=== PATIENT | male | born 1965 | race African-American/Black ===

== ENCOUNTER 2017-08-21 10:43 | Emergency (ER) | payer MEDICAID ==
[2017-08-21] MEDS ORDERED: IBUPROFEN 600 MG TABLET ONE (11:42)
== END 2017-08-21 13:06 | disposition home or self-care (01) ==
LOC: EDH 10:43
DX: M25.562 Pain in left knee (principal); Z98.890 Other specified postprocedural states
CPT/HCPCS: 73562

== ENCOUNTER 2017-12-12 11:39 | Emergency (ER) | payer MEDICAID ==
[2017-12-12 12:05] LABS: BASOPHILS % (AUTO) 0.5 % (0.0-5.0); EOSINOPHILS % (AUTO) 2.2 % (0.0-8.0); HEMATOCRIT 39.3 % (42-54); LYMPHOCYTES % (AUTO) 38.8 % (21.0-51.0); MEAN CORPUSCULAR HEMOGLOBIN 32.1 pg (27.0-33.0); MEAN CORPUSCULAR HGB CONC 34.1 g/dL (32.0-36.0); MEAN CORPUSCULAR VOLUME 94.2 fL (79-99); MONOCYTES % (AUTO) 10.8 % (3.0-13.0); NEUTROPHILS % (AUTO) 47.7 % (40.0-77.0); PLATELET COUNT (AUTO) 209 K/uL (130-400); RED BLOOD CELL COUNT(AUTO) 4.17 MIL/uL (4.50-6.20); RED CELL DISTRIBUTION WIDTH 13.5 % (11.0-15.5); WHITE BLOOD COUNT (AUTO) 6.4 K/uL (4.8-10.8)
[2017-12-12 12:08] LABS: APPEARANCE,URINE Clear (CLEAR); BILIRUBIN,URINE Negative (NEGATIVE); COLOR,URINE Yellow (YELLOW); GLUCOSE, URINE (UA) Negative (NEGATIVE); KETONES,URINE Negative (NEGATIVE); LEUKOCYTE ESTERASE ,URINE Negative (NEGATIVE); NITRATE,URINE Negative (NEGATIVE); OCCULT BLOOD,URINE Negative (NEGATIVE); PROTEIN,URINE Negative (NEGATIVE)
[2017-12-12 12:11] LABS: CREATININE 1.2 mg/dL (0.5-1.5); POTASSIUM 3.9 mmol/L (3.5-5.1)
== END 2017-12-12 13:18 | disposition home or self-care (01) ==
LOC: EDH 11:39
DX: S20.211A Contusion of right front wall of thorax, initial encounter (principal); S40.021A Contusion of right upper arm, initial encounter; Z98.890 Other specified postprocedural states; Z88.6 Allergy status to analgesic agent; V76 Bus occupant injured in collision with other nonmotor vehicle; Y93.89 Activity, other specified; Y92.488 Other paved roadways as the place of occurrence of the external cause; Y99.8 Other external cause status
CPT/HCPCS: 36415; 71250; 73060; 73090; 80048; 81003; 85025

== ENCOUNTER → 2018-03-14 | Outpatient (CLI) | payer MEDICAID | END | disposition home or self-care (01) | LOC: SHCH 09:32 | PROVIDERS: ATTEND Internal Medicine Cardiovascular Disease | DX: R94.31 Abnormal electrocardiogram [ECG] [EKG] (principal) | CPT/HCPCS: 93306 ==

== ENCOUNTER → 2018-03-18 | Outpatient (CLI) | payer MEDICAID ==
[~2018-03-18] MED LIST: REGADENOSON 0.4 MG/5 ML PF SYG IVP SCH
== END | disposition home or self-care (01) ==
LOC: SHCH 08:30
PROVIDERS: ATTEND Internal Medicine Cardiovascular Disease
DX: R06.00 Dyspnea, unspecified (principal)
CPT/HCPCS: 78452; 93017; 96374; A9500 ×2; J2785

== ENCOUNTER → 2020-11-15 | Outpatient (CLI) | payer MEDICAID | END | disposition home or self-care (01) | LOC: RAH 08:47 | PROVIDERS: ATTEND Internal Medicine Cardiovascular Disease | DX: R27.0 Ataxia, unspecified (principal); R20.2 Paresthesia of skin; M79.609 Pain in unspecified limb | CPT/HCPCS: 70450 ==

== ENCOUNTER → 2021-01-08 | Outpatient (CLI) | payer MEDICAID | END | disposition home or self-care (01) | LOC: SLP 20:19 | PROVIDERS: ATTEND Internal Medicine Cardiovascular Disease | DX: G47.33 Obstructive sleep apnea (adult) (pediatric) (principal) | CPT/HCPCS: 95810; 95811 ==

== ENCOUNTER → 2021-01-30 | Outpatient (CLI) | payer MEDICAID | END | disposition home or self-care (01) | LOC: SLP 19:54 | PROVIDERS: ATTEND Internal Medicine Cardiovascular Disease | DX: G47.33 Obstructive sleep apnea (adult) (pediatric) (principal); I10 Essential (primary) hypertension; R53.83 Other fatigue; F41.8 Other specified anxiety disorders; E66.9 Obesity, unspecified; R35.0 Frequency of micturition; M25.50 Pain in unspecified joint | CPT/HCPCS: 95811 ==

== ENCOUNTER 2022-12-21 19:30 | Emergency (ER) | payer MEDICAID ==
[2022-12-21 21:06] LABS: BASOPHILS % (AUTO) 0.4 % (0.0-5.0); EOSINOPHILS % (AUTO) 0.2 % (0.0-8.0); HEMATOCRIT 41.3 % (42-54); LYMPHOCYTES % (AUTO) 13.8 % (21.0-51.0); MEAN CORPUSCULAR HEMOGLOBIN 29.2 pg (27.0-33.0); MEAN CORPUSCULAR HGB CONC 32.7 g/dL (32.0-36.0); MEAN CORPUSCULAR VOLUME 89.4 fL (79-99); NEUTROPHILS % (AUTO) 78.1 % (40.0-77.0); PLATELET COUNT (AUTO) 220 K/uL (130-400); RED BLOOD CELL COUNT(AUTO) 4.62 MIL/uL (4.50-6.20); RED CELL DISTRIBUTION WIDTH 14.5 % (11.0-15.5); WHITE BLOOD COUNT (AUTO) 9.1 K/uL (4.8-10.8)
[2022-12-21 21:21] LABS: CREATININE 1.2 mg/dL (0.5-1.5); POTASSIUM 4.4 mmol/L (3.5-5.1)
[2022-12-21 21:28] LABS: ALBUMIN 3.8 g/dL (3.5-5.0)
[2022-12-21 21:51] VITALS: BP 163/94
[2022-12-21] MEDS ORDERED: AZIT250T9 PO (22:14)
[2022-12-21] MEDS ORDERED: AMLODIPINE 5 MG TAB PO ONE (22:30)
== END 2022-12-21 22:44 | disposition home or self-care (01) ==
LOC: EDH 19:30
DX: J40 Bronchitis, not specified as acute or chronic (principal); R55 Syncope and collapse; Z95.810 Presence of automatic (implantable) cardiac defibrillator
CPT/HCPCS: 36415; 71045; 80053; 84484; 85025; 93005

== ENCOUNTER → 2024-03-13 | Outpatient (CLI) | payer MEDICAID ==
[~2024-03-13] MED LIST changes: +AZIT250T9 PO; -REGADENOSON 0.4 MG/5 ML PF SYG IVP SCH
== END | disposition home or self-care (01) ==
LOC: SHCH 09:33
PROVIDERS: ATTEND Internal Medicine Cardiovascular Disease
DX: R60.9 Edema, unspecified (principal)
CPT/HCPCS: 93970

== ENCOUNTER → 2024-04-29 | Outpatient (CLI) | payer MEDICAID ==
[~2024-04-29] MED LIST changes: +AEC81 PO; +AMIO200T44 PO; +AMIO200T68 PO; +AMLO-258 PO; +ATOR40TA69 PO; -AZIT250T9 PO; +LISI40TA9 PO
[2024-04-29 12:21] LABS: CREATININE 1.3 mg/dL (0.5-1.3); POTASSIUM 4.6 mmol/L (3.5-5.1)
== END | disposition home or self-care (01) ==
LOC: LAB 10:33
PROVIDERS: ATTEND Internal Medicine Cardiovascular Disease
DX: I10 Essential (primary) hypertension (principal); Z95.810 Presence of automatic (implantable) cardiac defibrillator
CPT/HCPCS: 36415; 80048; 83735

== ENCOUNTER → 2024-05-05 | Outpatient (CLI) | payer MEDICAID ==
[2024-05-05 12:19] LABS: CREATININE 1.4 mg/dL (0.5-1.3); MAGNESIUM 1.7 mg/dL (1.80-2.40)
== END | disposition home or self-care (01) ==
LOC: LAB 08:05
PROVIDERS: ATTEND Internal Medicine Cardiovascular Disease
DX: I10 Essential (primary) hypertension (principal); Z95.810 Presence of automatic (implantable) cardiac defibrillator
CPT/HCPCS: 36415; 80048; 83735

== ENCOUNTER → 2024-07-10 | Outpatient (CLI) | payer MEDICAID ==
[2024-07-10 12:08] LABS: CREATININE 2.1 mg/dL (0.5-1.3); POTASSIUM 4.3 mmol/L (3.5-5.1)
== END | disposition home or self-care (01) ==
LOC: LAB 10:13
PROVIDERS: ATTEND Internal Medicine Cardiovascular Disease
DX: I10 Essential (primary) hypertension (principal)
CPT/HCPCS: 36415; 80048

== ENCOUNTER → 2024-08-06 | Outpatient (CLI) | payer MEDICAID ==
[2024-08-06 13:21] LABS: CREATININE 1.8 mg/dL (0.5-1.3); MAGNESIUM 1.8 mg/dL (1.80-2.40); POTASSIUM 4.4 mmol/L (3.5-5.1)
== END | disposition home or self-care (01) ==
LOC: LAB 08:21
PROVIDERS: ATTEND Internal Medicine Cardiovascular Disease
DX: I10 Essential (primary) hypertension (principal)
CPT/HCPCS: 36415; 80048; 83735

== ENCOUNTER → 2024-08-14 | Outpatient (CLI) | payer MEDICAID ==
[2024-08-14 12:28] LABS: CREATININE 1.6 mg/dL (0.5-1.3)
== END | disposition home or self-care (01) ==
LOC: LAB 09:04
PROVIDERS: ATTEND Internal Medicine Cardiovascular Disease
DX: I10 Essential (primary) hypertension (principal); Z45.02 Encounter for adjustment and management of automatic implantable cardiac defibrillator
CPT/HCPCS: 36415; 80048

== ENCOUNTER 2024-09-04 16:41 | Emergency (ER) | payer MEDICAID ==
[~2024-09-04] VITALS: Ht 182.9 cm; Wt 145.1 kg
--- NOTE | 2024-09-04 17:23 | EKG ---
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
[2024-09-04 17:26] LABS: BASOPHILS # (AUTO) 0.06 K/uL (0.00-0.20); BASOPHILS % (AUTO) 0.8 % (0.0-5.0); EOSINOPHILS # (AUTO) 0.12 K/uL (0.00-0.70); EOSINOPHILS % (AUTO) 1.7 % (0.0-8.0); HEMATOCRIT 42.7 % (42-54); LYMPHOCYTES # (AUTO) 2.1 K/uL (1.0-4.8); LYMPHOCYTES % (AUTO) 29.9 % (21.0-51.0); MEAN CORPUSCULAR HEMOGLOBIN 31.7 pg (27.0-33.0); MEAN CORPUSCULAR HGB CONC 33.3 g/dL (32.0-36.0); MEAN CORPUSCULAR VOLUME 95.3 fL (79-99); MONOCYTES # (AUTO) 0.9 K/uL (0.1-1.0); MONOCYTES % (AUTO) 12.3 % (3.0-13.0); NEUTROPHILS # (AUTO) 3.9 K/uL (1.8-7.7); NEUTROPHILS % (AUTO) 55.3 % (40.0-77.0); PLATELET COUNT (AUTO) 273 K/uL (130-400); RED BLOOD CELL COUNT(AUTO) 4.48 MIL/uL (4.50-6.20); RED CELL DISTRIBUTION WIDTH 14.2 % (11.0-15.5); WHITE BLOOD COUNT (AUTO) 7.1 K/uL (4.8-10.8)
--- NOTE | 2024-09-04 17:27 | ERN ---
General Chief Complaint: Hypertension Stated Complaint: HYPERTENSION,MULTIPLE COMPLAINTS Time Seen by MD: 16:45 Source: patient History of Present Illness Initial Comments PATIENT IS A 59-YEAR-OLD GENTLEMAN COMING IN TO EVALUATE HIS BLOOD PRESSURE. HE STATES THAT HE HAS A HISTORY OF HYPERTENSION BUT HAS FREQUENTLY PRESENTED WITH ABNORMAL BLOOD PRESSURE. HE WAS CURRENTLY TAKING MEDICATION FOR HIS BLOOD PRESSURE BUT HE WAS TOLD THAT ANOTHER ER THAT IT WAS NOT OPTIMAL. Allergies: Coded Allergies: ibuprofen (Unverified Allergy, Mild, BLOATING, 04/16/24) INDIGESTION/ACID REFLUX Home Meds Reported Medications Amiodarone HCl (Amiodarone HCl) 200 Mg Tablet, 200 MG PO BID, TAB 09/04/24 Atorvastatin Calcium (LIPITOR) 40 Mg Tablet, 40 MG PO DAILY, TAB 09/04/24 Buspirone HCl (Buspirone HCl) 10 Mg Tablet, 10 MG PO BID, TAB 09/04/24 Eplerenone (Eplerenone) 25 Mg Tablet, 25 MG PO DAILY, TAB 09/04/24 Aspirin (ASPIRIN 81MG CHEW TAB) 81 Mg Tab.chew, 81 MG PO DAILY, TAB.CHEW 09/04/24 Furosemide (Furosemide) 20 Mg Tablet, 20 MG PO DAILY, TAB 09/04/24 Empagliflozin (Jardiance) 10 Mg Tablet, 10 MG PO DAILY, TAB 09/04/24 Amlodipine Besylate (Amlodipine Besylate) 10 Mg Tablet, 10 MG PO DAILY for 30 Days, #30 TAB 0 Refills 09/04/24 Clopidogrel Bisulfate (Clopidogrel) 75 Mg Tablet, 75 MG PO DAILY, TAB 09/04/24 Metoprolol Succinate (Metoprolol Succinate) 50 Mg Tab.er.24h, 50 MG PO DAILY, TAB 09/04/24 Discontinued Reported Medications Amlodipine Besylate (Amlodipine Besylate) 10 Mg Tablet, 10 MG PO DAILY for 30 Days, #30 TAB 0 Refills 04/16/24 Aspirin (ASPIRIN 81 MG ECTAB) 81 Mg Ectab, 81 MG PO DAILY, TAB.EC 04/16/24 Atorvastatin Calcium (LIPITOR) 40 Mg Tablet, 40 MG PO DAILY, TAB 04/16/24 Lisinopril (Lisinopril) 40 Mg Tablet, 40 MG PO DAILY, TAB 04/16/24 Discontinued Scripts Amiodarone HCl (Pacerone) 200 Mg Tablet, 400 MG PO BID, #10 TAB 0 Refills Prov:JAVIER TURCIOS MD 04/18/24 Amiodarone HCl (Amiodarone HCl) 200 Mg Tablet, 200 MG PO BID, #60 TAB Prov:JAVIER TURCIOS MD 04/18/24 Past Medical History Past Medical History: CAD, CVA, Diabetes-Type II, High Cholesterol, Heart Disease, Hypertension Past Surgical History: Other Surgical History Other: STENT PLACEMENT Social History Social History: Lives with family ROS Dictation CONSTITUTIONAL: NO CHILLS, NO FEVER, NO WEAKNESS, NO DIAPHORESIS, NO MALAISE. HEAD/FACE: NO SIGNS OF TRAUMA. EENT: NO EYE PAIN, NO BLURRED VISION, NO TEARING, NO DOUBLE VISION, NO EAR PAIN, NO EAR DISCHARGE, NO NOSE PAIN, NO NASAL CONGESTION, NO THROAT PAIN, NO THROAT SWELLING, NO MOUTH PAIN. RESPIRATORY: NO COUGH, NO ORTHOPNEA, NO SOB, NO STRIDOR, NO WHEEZING. CARDIOVASCULAR: NO CHEST PAIN, NO EDEMA, NO PALPITATIONS, NO SYNCOPE. GASTROINTESTINAL/ABDOMINAL: NO ABDOMINAL PAIN, NO CONSTIPATION, NO DIARRHEA, NO NAUSEA, NO VOMITING. GENITOURINARY: NO ABNORMAL DISCHARGE, NO DYSURIA, NO FREQUENT URINATION, NO HEMATURIA. NO COMPLAINTS OF PAIN IN THE GENITALS. MUSCULOSKELETAL: NO BACK PAIN, NO GOUT, NO JOINT PAIN, NO JOINT SWELLING, NO MUSCLE PAIN, NO MUSCLE STIFFNESS, NO NECK PAIN. INTEGUMENTARY: NO CHANGE IN COLOR, NO CHANGE IN HAIR/NAILS, NO DRYNESS, NO LESION, NO LUMPS, NO RASH. NEUROLOGICAL/PSYCH: NO ANXIETY, NOT DEPRESSED, NO EMOTIONAL PROBLEM, NO HEADACHE, NO NUMBNESS, NO PRE-EXISTING DEFICIT, NO HISTORY OF SEIZURES, NO TREMORS, NO WEAKNESS. HEMATOLOGIC/LYMPHATIC: NOT ANEMIC, NO HISTORY OF BLOOD CLOTS, NO APPARENT BLEEDING, NO BRUISING, GLANDS NOT SWOLLEN. ALL SYSTEMS NEGATIVE, EXCEPT NOTED. Physical Exam Physical Exam Dictation VITAL SIGNS: REVIEWED. GENERAL APPEARANCE: ALERT, ORIENTED X3, NO ACUTE DISTRESS, OBESE. HEAD AND FACE: NON-TRAUMATIC. EYES: PERRL, PINK CONJUNCTIVAS, EYELID NO TRAUMA, ANTERIOR CHAMBER CLEAR. EARS: PINNAS INTACT AND NO SIGNS OF TRAUMA OR ERYTHEMA. EAR CANALS CLEAR AND NO DISCHARGE. TMS NO ERYTHEMA. NOSE: NO DISCHARGE, NO BLEEDING. OROPHARYNX: MOUTH NORMAL, TEETH NO CARIES, TONGUE PINK. PHARYNX CLEAR, NO E RYTHEMA. TONSILS NO EXUDATES, NO ABSCESSES NOTED. MUCOUS MEMBRANE MOIST. NECK: SUPPLE, NON-TENDER, NO THYROMEGALY, NO MASSES, NO JVD, NO BRUITS. BREAST: DEFERRED. CHEST: NO TENDERNESS, NO CREPITUS, NO PARADOXICAL MOVEMENT, NO RETRACTIONS. LUNGS: CLEAR, WELL-VENTILATED, SYMMETRIC, NO RALES, NO WHEEZING, NO RHONCHI, NO STRIDOR, GOOD BREATH SOUNDS BILATERALLY. HEART: REGULAR RATE, REGULAR RHYTHM, NO MURMUR, NO GALLOPS. VASCULAR: NO PERIPHERAL EDEMA. ABDOMEN: SOFT, POSITIVE BOWEL SOUNDS, NONDISTENDED, NO GUARDING, NONTENDER, NO REBOUND, NO MASSES NO HEPATOMEGALY, NO SPLENOMEGALY, NO COLEMAN'S SIGN, NO HERNIAS. RECTAL: DEFERRED. GENITAL: DEFERRED. NEUROLOGICAL: NORMAL SPEECH, GROSS MOTOR FUNCTION INTACT, GROSS SENSORY FUNCTION INTACT. MUSCULOSKELETAL: NECK NONTENDER, FULL RANGE OF MOTION, BACK NONTENDER, FULL RANGE OF MOTION. EXTREMITIES: NONTENDER, FULL RANGE OF MOTION. SKIN: COLOR PINK, DRY, NO TURGOR, NO RASH, NO LACERATIONS, NO ABRASIONS, NO CONTUSIONS. LYMPHATICS: DEFERRED. Results Laboratory and Microbiology Lab and Micro Result Laboratory Tests Test 09/04/24 17:11 09/04/24 18:40 White Blood Count 7.1 K/uL (4.8-10.8) Red Blood Count 4.48 MIL/uL (4.50-6.20) L Hemoglobin 14.2 g/dL (14.0-18.0) Hematocrit 42.7 % (42-54) Mean Corpuscular Volume 95.3 fL (79-99) Mean Corpuscular Hemoglobin 31.7 pg (27.0-33.0) Mean Corpuscular Hemoglobin Concent 33.3 g/dL (32.0-36.0) Red Cell Distribution Width 14.2 % (11.0-15.5) Platelet Count 273 K/uL (130-400) Mean Platelet Volume 9.6 fL (7.5-10.5) Immature Granulocyte % (Auto) 0.0 % (0-1) Neutrophils (%) (Auto) 55.3 % (40.0-77.0) Lymphocytes (%) (Auto) 29.9 % (21.0-51.0) Monocytes (%) (Auto) 12.3 % (3.0-13.0) Eosinophils (%) (Auto) 1.7 % (0.0-8.0) Basophils (%) (Auto) 0.8 % (0.0-5.0) Neutrophils # (Auto) 3.9 K/uL (1.8-7.7) Lymphocytes # (Auto) 2.1 K/uL (1.0-4.8) Monocytes # (Auto) 0.9 K/uL (0.1-1.0) Eosinophils # (Auto) 0.12 K/uL (0.00-0.70) Basophils # (Auto) 0.06 K/uL (0.00-0.20) Absolute Immature Granulocyte (auto 0.00 K/uL (0-1) Nucleated Red Blood Cells 0.0 % (0.0-0.19) Prothrombin Time 10.9 SEC (9.6-11.6) Prothromb Time International Ratio 1.03 (0.85-1.15) Activated Partial Thromboplast Time 24.0 SEC (26.3-35.5) L Sodium Level 139 mmol/L (136-145) Potassium Level 4.1 mmol/L (3.5-5.1) Chloride Level 102 mmol/L (101-111) Carbon Dioxide Level 29 mmol/L (21-32) Blood Urea Nitrogen 28 mg/dL (7-18) H Creatinine 1.7 mg/dL (0.5-1.3) H Glomerular Filtration Rate Calc 45 mL/min (>90) Random Glucose 100 mg/dL (70-105) Total Calcium 9.1 mg/dL (8.5-10.1) Magnesium Level 2.00 mg/dL (1.80-2.40) Total Creatine Kinase 335 U/L (21-232) #H Troponin I High Sensitivity 18.9 ng/L (4-75) B-Type Natriuretic Peptide 32 pg/mL (0-100) Urine Color LIGHT-YELLOW (YELLOW) Urine Appearance CLEAR (CLEAR) Urine pH 5.5 (5.0-8.0) Urine Specific [place] 1.031 (1.001-1.031) Urine Protein 20 mg/dL (NEGATIVE) H Urine Glucose (UA) >=1000 mg/dL (NEGATIVE) H Urine Ketones NEGATIVE mg/dL (NEGATIVE) Urine Occult Blood +- (TRACE) (NEGATIVE) H Urine Nitrate NEGATIVE (NEGATIVE) Urine Bilirubin NEGATIVE mg/dL (NEGATIVE) Urine Urobilinogen 2.0 mg/dL (0.2-1.0) H Urine Leukocyte Esterase NEGATIVE Felicitas/uL Urine RBC 0-1 /HPF (0-1) Urine WBC 0-1 /HPF (0-1) Urine Bacteria None /HPF (None Seen) Labs Reviewed?: Yes EKG/XRAY/US/CT/MRI EKG Comment 09/04/2024 TIME 5:19 P.M. VENTRICULAR RATE [address] WAVE ELEVATION OR DEPRESSION MDM MDM: DIFFERENTIAL DIAGNOSIS: RATIONALE: TESTS CONSIDERED AND ORDERED SECONDARY TO SHARED DECISION MAKING INCLUDE: PREVIOUS OUTSIDE RECORDS REVIEWED: OLD ER VISITS. RISK OF COMPLICATION AND/OR MORBIDITY OR MORTALITY OF PATIENT MANAGEMENT: NONE MEDICATIONS-PER MEDICATION RECONCILIATION NEED FOR HOSPITALIZATION: PATIENT DOES NOT MEET CRITERIA FOR HOSPITALIZATION. NEED FOR EMERGENCY MAJOR/MINOR SURGERY: NO THERE ARE NO SOCIAL CONCERNS WITH THIS PATIENT. PRESCRIPTION DRUG MANAGEMENT PRESCRIPTIONS WILL INCLUDE SYMPTOMATIC CARE PATIENT'S PRIOR EXTERNAL MEDICAL RECORDS FROM OTHER ER VISITS WERE REVIEWED BY ME INDICATED. PRIOR TESTING AND RESULTS FROM PREVIOUS VISITS WERE REVIEWED. PRIOR TESTS WERE TAKEN INTO ACCOUNT WITH MEDICAL DECISION MAKING AND RESOURCE UTILIZATION, INDEPENDENT HISTORIAN/HISTORIANS WERE USED TO OBTAIN COMPLETE MEDICAL HISTORY. I INDEPENDENTLY INTERPRETED THE TEST THAT WERE PERFORMED, RESULTS WERE REVIEWED BY ME AND CONSIDERED FINDINGS ON RADIOLOGY IF ORDERED. MEDICAL MANAGEMENT AND EXAMINATION INTERPRETATION DISCUSSIONS WERE HAD BY ME WITH OTHER QUALIFIED HEALTHCARE PROFESSIONALS INDICATED FOR THE PATIENT'S CARE. ED Course Orders Procedure Category Date Status Time Cbc With Differential LAB 09/04/24 Complete 16:57 Prothrombin Time With LAB 09/04/24 Complete INR 16:57 B-Type Natriuretic LAB 09/04/24 Complete Peptide 16:57 Chest 1vw RAD 09/04/24 Resulted 16:57 12 Lead Ekg Tracing- EKG 09/04/24 Complete Technical 16:57 Magnesium LAB 09/04/24 Complete 16:57 Urinalysis Profile LAB 09/04/24 Complete 16:57 Partial LAB 09/04/24 Complete Thromboplastin Time 16:57 Basic Metabolic Panel LAB 09/04/24 Complete 16:57 Cardiac Panel LAB 09/04/24 Complete 16:57 Vital Signs Date Time Temp Pulse Resp B/P (MAP) Pulse Ox O2 Delivery O2 Flow Rate FiO2 09/04/24 19:08 61 16 161/85 98 Room Air* 0 21 09/04/24 17:18 99.0 64 17 151/79 97 Room Air* 0 09/04/24 16:47 98.8 67 20 176/101 96 Room Air 0 DX & DISP Disposition: Discharge Departure Impression: Primary Impression: HTN (hypertension) Condition: Stable Referrals: JANETT ZENDEJAS MD (PCP) CHLOE PROCTOR MD Sep 04, 2024 17:27 CHRISTIE SANCHEZ MD Sep 04, 2024 20:28
[2024-09-04 17:32] LABS: CREATININE 1.7 mg/dL (0.5-1.3); POTASSIUM 4.1 mmol/L (3.5-5.1)
[2024-09-04 17:34] LABS: INR 1.03 (0.85-1.15); PROTHROMBIN TIME 10.9 SEC (9.6-11.6)
[2024-09-04 17:47] LABS: B-TYPE NATRIURETIC PEPTIDE 32 pg/mL (0-100)
--- NOTE | 2024-09-04 18:01 | HMCIMG ---
PORTABLE CHEST RADIOGRAPH INDICATION: HTN COMPARISON: 04/15/2024 FINDINGS: Image is somewhat underexposed, but the radiologic examination is still believed to be of reasonable diagnostic quality. Left sided single chamber pacer and continuous lead remain in customary position. Heart size is normal. The pulmonary vascularity and vee appear normal. No abnormal pulmonary parenchymal opacity or consolidation identified. No significant pleural effusion noted. No pneumothorax detected. IMPRESSION: No radiographic evidence for any acute cardiopulmonary process.
[2024-09-04 18:58] LABS: APPEARANCE,URINE CLEAR (CLEAR); BILIRUBIN,URINE NEGATIVE (NEGATIVE); COLOR,URINE LIGHT-YELLOW (YELLOW); GLUCOSE, URINE (UA) >=1000 mg/dL (NEGATIVE); KETONES,URINE NEGATIVE (NEGATIVE); LEUKOCYTE ESTERASE ,URINE NEGATIVE Leu/uL (NEGATIVE); NITRATE,URINE NEGATIVE (NEGATIVE); PH,URINE 5.5 (5.0-8.0); PROTEIN,URINE 20 mg/dL (NEGATIVE)
[2024-09-04 19:00] LABS: ADD UA MICROSCOPIC YES
[2024-09-04 19:01] LABS: MUCUS,URINE RARE LPF (None Seen); RBC,URINE 0-1 /HPF (0-1); WBC,URINE 0-1 /HPF (0-1)
[2024-09-04] MEDS ORDERED: METO-391 PO (19:17)
[2024-09-04] MEDS ORDERED: BUSP10TA3 PO (19:17)
[2024-09-04] MEDS ORDERED: ASPI-1005 PO (19:17)
[2024-09-04] MEDS ORDERED: AMIO200T68 PO (19:17)
[2024-09-04] MEDS ORDERED: EMPA10TA PO (19:17)
[2024-09-04] MEDS ORDERED: CLOP75TA32 PO (19:17)
[2024-09-04] MEDS ORDERED: EPLE25TA24 PO (19:17)
[2024-09-04] MEDS ORDERED: FURO20TA4 PO (19:17)
[2024-09-04 20:45] VITALS: BP 150/83; PULSE 60; RESP 16; TEMP 98.1; O2SAT 97
== END 2024-09-04 21:18 | disposition home or self-care (01) ==
LOC: EDH 16:41
DX: I11.9 Hypertensive heart disease without heart failure (principal); I25.10 Atherosclerotic heart disease of native coronary artery without angina pectoris; E11.9 Type 2 diabetes mellitus without complications; E78.00 Pure hypercholesterolemia, unspecified; Z79.01 Long term (current) use of anticoagulants; Z79.02 Long term (current) use of antithrombotics/antiplatelets; Z79.82 Long term (current) use of aspirin; Z79.84 Long term (current) use of oral hypoglycemic drugs; Z79.899 Other long term (current) drug therapy; Z86.73 Personal history of transient ischemic attack (TIA), and cerebral infarction without residual deficits; Z88.6 Allergy status to analgesic agent
CPT/HCPCS: 36415; 71045; 80048; 81001; 82550; 83735; 83880; 84484; 85025; 85610; 85730; 93005; 99285

== ENCOUNTER 2024-09-17 19:59 | Emergency (ER) | payer MEDICAID ==
[~2024-09-17] VITALS: Ht 182.9 cm; Wt 147.4 kg
[~2024-09-17 19:59] MED LIST changes: -AEC81 PO; -AMIO200T44 PO; +ASPI-1005 PO; +BUSP10TA3 PO; +CLOP75TA32 PO; +EMPA10TA PO; +EPLE25TA24 PO; +FURO20TA4 PO; -LISI40TA9 PO; +METO-391 PO
--- NOTE | 2024-09-17 20:09 | ERN ---
ED Note History of Present Illness Stated Complaint: POTASSIUM AND BLOOD LEVEL CONCERNS Chief Complaint: Hypertension Time Seen by MD: 20:06 Dictation: This is a 59-year-old morbidly obese male who presented to the emergency room stating that his blood pressure was running high and wanted to get checked in the ER. He normally takes multiple medications for his blood pressure control and when the blood pressure is uncontrolled he feels that his ears are hot. No blurred vision diplopia, slurred speech facial asymmetry or motor weakness. No headache His spouse gives him the blood pressure medications and he admits to compliance. Initial blood pressure was 215/102, heart rate of 80 respiratory rate of 20 pulse oximetry 98% and he was afebrile The blood pressure improved to 172/96 eventually . His chronic medical problems include diabetes mellitus, hypertension, hypercholesterolemia, coronary artery disease status post stents and AICD, history of CVA, history of left leg surgery. 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 Allergies: Coded Allergies: ibuprofen (Unverified Allergy, Mild, BLOATING, 04/16/24) INDIGESTION/ACID REFLUX Home Meds Reported Medications Amiodarone HCl (Amiodarone HCl) 200 Mg Tablet, 200 MG PO BID, TAB 09/04/24 Atorvastatin Calcium (LIPITOR) 40 Mg Tablet, 40 MG PO DAILY, TAB 09/04/24 Buspirone HCl (Buspirone HCl) 10 Mg Tablet, 10 MG PO BID, TAB 09/04/24 Eplerenone (Eplerenone) 25 Mg Tablet, 25 MG PO DAILY, TAB 09/04/24 Aspirin (ASPIRIN 81MG CHEW TAB) 81 Mg Tab.chew, 81 MG PO DAILY, TAB.CHEW 09/04/24 Furosemide (Furosemide) 20 Mg Tablet, 20 MG PO DAILY, TAB 09/04/24 Empagliflozin (Jardiance) 10 Mg Tablet, 10 MG PO DAILY, TAB 09/04/24 Amlodipine Besylate (Amlodipine Besylate) 10 Mg Tablet, 10 MG PO DAILY for 30 Days, #30 TAB 0 Refills 09/04/24 Clopidogrel Bisulfate (Clopidogrel) 75 Mg Tablet, 75 MG PO DAILY, TAB 09/04/24 Metoprolol Succinate (Metoprolol Succinate) 50 Mg Tab.er.24h, 50 MG PO DAILY, TAB 09/04/24 Past Medical History Past Medical History: CVA, Diabetes-Type II, Hypertension, Renal Disese, Other Surgical History: Pacer/AICD, Other Surgical History Other: LEFT LEG Social History: Lives with family RN Note Reviewed/Agreed w/PFSH: Yes Review of System Dictation As described in the history of present illness Constitutional: Negative for fever,chills, and weight loss Eyes: Negative for injury, pain,redness, and discharge ENT: Negative for injury,pain or swelling Cardiovascular: Negative for chest pain, palpitations, and edema Respiratory: Negative for shortness of breath, cough, and wheezing, Abdomen/GI: Negative for abdominal pain, nausea, vomiting, diarrhea, and constipation Back: Negative for injury and pain : Negative for injury, bleeding and discharge MS/Extremity: Negative for injury and deformity Skin: Negative for rash, and discoloration Neuro: Negative for headache, weakness, numbness, tingling, and seizure Psych: Negative for suicide ideation, homicidal ideation, and hallucinations Initial Vital Sign VS Vital Signs Date Time Temp Pulse Resp B/P (MAP) Pulse Ox O2 Delivery O2 Flow Rate FiO2 09/17/24 20:00 98.1 80 20 215/102 98 Room Air 09/17/24 20:29 0 21 Physical Exam Dictation General: awake, alert, NAD morbidly obese Head/Face: Normocephalic, atraumatic Eyes: PERRL, EOMI, vision at baseline ENT: oral cavity clear, TMs clear, no signs of infection Mallampati -4 Neck: Trachea midline, supple, no nuchal rigidity, short and thick Cardiovascular: RRR, normal S1/S2, No MRGs, no JVD Respiratory: CTAB, no respiratory distress, No rales or wheezes Abdomen: Soft, non-tender, non-distended, normal bowel sounds, no guarding or rebound. Skin: Warm, dry, normal turgor, no rash MS/Extremity: Pulses equal, no cyanosis, neurovascular intact, FROM Neuro: COAx4, GCS 15, strength 5/5, CN 2-12 intact, normal cerebellar exam, normal gait, Psych: Normal behavior, mood, and affect normal Extremities-trace edema without any palpable cords, Homans sign is negative Results (Laboratory/Radiology) Laboratory/Radiology Laboratory Tests Test 09/17/24 20:25 White Blood Count 8.1 K/uL (4.8-10.8) Red Blood Count 4.61 MIL/uL (4.50-6.20) Hemoglobin 14.7 g/dL (14.0-18.0) Hematocrit 43.8 % (42-54) Mean Corpuscular Volume 95.0 fL (79-99) Mean Corpuscular Hemoglobin 31.9 pg (27.0-33.0) Mean Corpuscular Hemoglobin Concent 33.6 g/dL (32.0-36.0) Red Cell Distribution Width 14.1 % (11.0-15.5) Platelet Count 230 K/uL (130-400) Mean Platelet Volume 10.4 fL (7.5-10.5) Immature Granulocyte % (Auto) 0.2 % (0-1) Neutrophils (%) (Auto) 52.6 % (40.0-77.0) Lymphocytes (%) (Auto) 35.1 % (21.0-51.0) Monocytes (%) (Auto) 9.3 % (3.0-13.0) Eosinophils (%) (Auto) 2.1 % (0.0-8.0) Basophils (%) (Auto) 0.7 % (0.0-5.0) Neutrophils # (Auto) 4.3 K/uL (1.8-7.7) Lymphocytes # (Auto) 2.9 K/uL (1.0-4.8) Monocytes # (Auto) 0.8 K/uL (0.1-1.0) Eosinophils # (Auto) 0.17 K/uL (0.00-0.70) Basophils # (Auto) 0.06 K/uL (0.00-0.20) Absolute Immature Granulocyte (auto 0.02 K/uL (0-1) Nucleated Red Blood Cells 0.0 % (0.0-0.19) Sodium Level 138 mmol/L (136-145) Potassium Level 3.8 mmol/L (3.5-5.1) Chloride Level 101 mmol/L (101-111) Carbon Dioxide Level 30 mmol/L (21-32) Blood Urea Nitrogen 27 mg/dL (7-18) H Creatinine 2.1 mg/dL (0.5-1.3) H Glomerular Filtration Rate Calc 35 mL/min (>90) Random Glucose 109 mg/dL (70-105) H Total Calcium 8.9 mg/dL (8.5-10.1) Troponin I High Sensitivity 19 ng/L (4-75) B-Type Natriuretic Peptide 12 pg/mL (0-100) Labs Reviewed?: Yes EKG Comment: 12 lead EKG done on 09/17/2024 at 8:33 p.m. showed a heart rate of 70, LA interval 179, QRS 104, QT/QTC 406/438 Impression normal sinus rhythm with nonspecific ST-T changes but no acute ST elevations or deep ST depressions to suggest ischemic changes. Interpreted by ER MD Dr. Hassan ED Course ED Course Orders Procedure Category Date Status Time Cbc With Differential LAB 09/17/24 Complete 20:14 Basic Metabolic Panel LAB 09/17/24 Complete 20:14 12 Lead Ekg Tracing- EKG 09/17/24 Resulted Technical 20:28 B-Type Natriuretic LAB 09/17/24 Complete Peptide 20:28 Troponin I High LAB 09/17/24 Complete Sensitivity 20:28 Hydralazine 20mg Inj PHA 09/17/24 Complete (Apresoline 20mg In 21:00 Hydralazine 20mg Inj PHA 09/17/24 Complete (Apresoline 20mg In 21:30 Current Medications Medications (Trade) Dose Ordered Sig/Uriah Route PRN Reason Start Time Stop Time Status Last Admin Dose Admin Hydralazine HCl (APRESOLine 20MG INJ) 10 mg ONCE ONCE IM 09/17/24 21:00 09/17/24 21:07 DC Hydralazine HCl (APRESOLine 20MG INJ) 10 mg ONCE ONCE IV 09/17/24 21:30 09/17/24 21:31 DC 09/17/24 21:14 Vital Signs Date Time Temp Pulse Resp B/P (MAP) Pulse Ox O2 Delivery O2 Flow Rate FiO2 09/17/24 21:56 98.2 75 19 159/87 97 Room Air* 0 21 09/17/24 20:29 70 18 172/96 99 Room Air* 0 21 09/17/24 20:00 98.1 80 20 215/102 98 Room Air We will perform diagnostic labs, and administer medications according to the patient's complaint. Once the results are available, will review and personally interpreted the labs to rule out any acute life-threatening emergency the trach require immediate intervention and treatment. I will then re-evaluate the patient after treatment and diagnostic exams have return to determine whether the patient requires any further testing, can safely be discharged home or need further admission to hospital for additional treatment and evaluation. Labs reviewed CBC is normal BNP 7 shows a potassium of 3.8 BUN and creatinine of 27 and 2.1 which is at his baseline I had a long discussion with the patient and spouse about his uncontrolled blood pressure which could be multifactorial including morbid obesity with a untreated sleep apnea . I counseled him extensively and instructed him to pursue sleep study and treatment of sleep apnea with his primary care physician. Medical Decision Making MDM MDM: Differential diagnosis: Accelerated hypertension, hypertensive urgency, hypertensive emergency Rationale: Tests considered and ordered secondary to shared decision making include: Previous outside records reviewed: Old ER visits. Risk of complication and/or morbidity or mortality of patient management: None Medications-Per medication reconciliation Need for hospitalization: Patient does not meet criteria for hospitalization. Need for emergency major/minor surgery: No There are no social concerns with this patient. Prescription drug management Prescriptions will include symptomatic care Patient's prior external medical records from other ER visits were reviewed by me as indicated. Prior testing and results from previous visits were reviewed. Prior tests were taken into account with medical decision making and resource utilization, independent historian/historians were used to obtain complete medical history. I independently interpreted the test that were performed, results were reviewed by me and considered findings on radiology if ordered. Medical management and examination interpretation discussions were had by me with other qualified healthcare professionals as indicated for the patient's care. Problem List Problem List: (1) Hypertensive urgency (2) Morbidly obese (3) Diabetes mellitus (4) HTN (hypertension) (5) Obstructive sleep apnea syndrome in adult DX & DISP Disposition: Discharge Departure Impression: Primary Impression: Hypertensive urgency Additional Impressions: Diabetes mellitus, Morbidly obese, Obstructive sleep apnea syndrome in adult Condition: Stable Additional Instructions: Patient and the caregiver have been informed of all the diagnostic tests and the imaging conducted during the today's visit to the emergency room and has verbalized understanding of the results I have personally reviewed and interpreted all diagnostic exams performed here in the ER today as well as the vital signs documented by the nursing staff. The patient is now being discharged to home and should follow up with the primary care physician or the specialist as directed by the ER staff. I had a long discussion with the patient and spouse about sleep apnea syndrome and the importance of treatment and PAP therapy to improve bodies physiology and better control of comorbidities and prevention of long-term complications. I also discussed the negative consequences of noncompliance including and they verbalized full understanding Counseling was also done on aggressive weight loss, diet and exercise Referrals: JANETT ZENDEJAS MD (PCP) GONSALO HASSAN MD Sep 17, 2024 20:09
--- NOTE | 2024-09-17 20:37 | EKG ---
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
[2024-09-17] MEDS ORDERED: hydrALAZine 20MG/ML VIAL IM ONE (21:00)
[2024-09-17 21:10] LABS: BASOPHILS # (AUTO) 0.06 K/uL (0.00-0.20); BASOPHILS % (AUTO) 0.7 % (0.0-5.0); EOSINOPHILS # (AUTO) 0.17 K/uL (0.00-0.70); EOSINOPHILS % (AUTO) 2.1 % (0.0-8.0); HEMATOCRIT 43.8 % (42-54); IMMATURE GRANULOCYTE ABSOLUTE 0.02 K/uL (0-1); LYMPHOCYTES # (AUTO) 2.9 K/uL (1.0-4.8); LYMPHOCYTES % (AUTO) 35.1 % (21.0-51.0); MEAN CORPUSCULAR HEMOGLOBIN 31.9 pg (27.0-33.0); MEAN CORPUSCULAR HGB CONC 33.6 g/dL (32.0-36.0); MONOCYTES # (AUTO) 0.8 K/uL (0.1-1.0); MONOCYTES % (AUTO) 9.3 % (3.0-13.0); NEUTROPHILS # (AUTO) 4.3 K/uL (1.8-7.7); NEUTROPHILS % (AUTO) 52.6 % (40.0-77.0); PLATELET COUNT (AUTO) 230 K/uL (130-400); RED BLOOD CELL COUNT(AUTO) 4.61 MIL/uL (4.50-6.20); RED CELL DISTRIBUTION WIDTH 14.1 % (11.0-15.5); WHITE BLOOD COUNT (AUTO) 8.1 K/uL (4.8-10.8)
[2024-09-17] MEDS: hydrALAZine 20MG/ML VIAL IV ONE (21:14)
[2024-09-17 21:25] LABS: CREATININE 2.1 mg/dL (0.5-1.3); POTASSIUM 3.8 mmol/L (3.5-5.1)
[2024-09-17 21:56] VITALS: BP 159/87; PULSE 75; RESP 19; TEMP 98.3; O2SAT 97
== END 2024-09-17 22:03 | disposition home or self-care (01) ==
LOC: EDH 19:59
DX: I16.0 Hypertensive urgency (principal); G47.33 Obstructive sleep apnea (adult) (pediatric); E11.9 Type 2 diabetes mellitus without complications; E66.01 Morbid (severe) obesity due to excess calories; I10 Essential (primary) hypertension; E78.00 Pure hypercholesterolemia, unspecified; Z88.6 Allergy status to analgesic agent; Z79.82 Long term (current) use of aspirin; Z79.02 Long term (current) use of antithrombotics/antiplatelets; Z79.84 Long term (current) use of oral hypoglycemic drugs; Z79.899 Other long term (current) drug therapy; Z86.73 Personal history of transient ischemic attack (TIA), and cerebral infarction without residual deficits; Z95.810 Presence of automatic (implantable) cardiac defibrillator; Z68.41 Body mass index [BMI] 40.0-44.9, adult
CPT/HCPCS: 99284; 96374; 84484; 80048; 83880; 85025; 36415; 93005; J0360

== ENCOUNTER 2024-10-28 23:02 | Emergency (ER) | payer MEDICAID ==
[~2024-10-28] VITALS: Ht 182.9 cm; Wt 150.6 kg
--- NOTE | 2024-10-29 01:38 | ERN ---
ED Note History of Present Illness Stated Complaint: C/O HIGH B/P Chief Complaint: Hypertension Time Seen by MD: 23:06 Dictation: This is a 59-year-old male with recalcitrant high blood pressure. He is on multiple medications for his heart and his blood pressure. He was recently given hydralazine to be taken p.r.n. if his systolic blood pressure went above 180. He wanted to check with us here in the emergency department to know if it was safe for him to take his medication and if it would cause problems interacting with his other medications. Allergies: Coded Allergies: ibuprofen (Unverified Allergy, Mild, BLOATING, 04/16/24) INDIGESTION/ACID REFLUX Home Meds Reported Medications Amiodarone HCl (Amiodarone HCl) 200 Mg Tablet, 200 MG PO BID, TAB 09/04/24 Atorvastatin Calcium (LIPITOR) 40 Mg Tablet, 40 MG PO DAILY, TAB 09/04/24 Buspirone HCl (Buspirone HCl) 10 Mg Tablet, 10 MG PO BID, TAB 09/04/24 Eplerenone (Eplerenone) 25 Mg Tablet, 25 MG PO DAILY, TAB 09/04/24 Aspirin (ASPIRIN 81MG CHEW TAB) 81 Mg Tab.chew, 81 MG PO DAILY, TAB.CHEW 09/04/24 Furosemide (Furosemide) 20 Mg Tablet, 20 MG PO DAILY, TAB 09/04/24 Empagliflozin (Jardiance) 10 Mg Tablet, 10 MG PO DAILY, TAB 09/04/24 Amlodipine Besylate (Amlodipine Besylate) 10 Mg Tablet, 10 MG PO DAILY for 30 Days, #30 TAB 0 Refills 09/04/24 Clopidogrel Bisulfate (Clopidogrel) 75 Mg Tablet, 75 MG PO DAILY, TAB 09/04/24 Metoprolol Succinate (Metoprolol Succinate) 50 Mg Tab.er.24h, 50 MG PO DAILY, TAB 09/04/24 Past Medical History Past Medical History: Diabetes-Type II, High Cholesterol, Hypertension Surgical History: None Surgical History Other: LEFT LEG Social History: Lives with family Review of System Dictation Review of systems is negative there is no chest pain no shortness of breath no mental status changes no headache no nausea vomiting diarrhea no urinary symptoms moves all his extremities. Initial Vital Sign VS Vital Signs Date Time Temp Pulse Resp B/P (MAP) Pulse Ox O2 Delivery O2 Flow Rate FiO2 10/28/24 23:05 97.5 79 20 164/97 96 Room Air Physical Exam Dictation Patient is sitting on the bed with normal vital signs on a monitor concerned only about the new medication that he was given. Normal sinus rhythm with a normal blood pressure on the monitor. Patient has no complaints normal vital signs I deferred the exam. Patient is only here to ask questions about his medications. IVF Sepsis Management BMI >30kg/m2?: Yes Results (Laboratory/Radiology) EKG: (+) NSR ED Course ED Course Vital Signs Date Time Temp Pulse Resp B/P (MAP) Pulse Ox O2 Delivery O2 Flow Rate FiO2 10/28/24 23:05 97.5 79 20 164/97 96 Room Air Medical Decision Making MDM I examined his medications and the only potential difficulty I see with his new medication is hypotension; however; the instructions on the bottle state that it is only to be taken if his blood pressures greater than 180 systolic. I assured the patient that he is okay to take the medication under the circumstances and that it will not be a problem. DX & DISP Disposition: Discharge Departure Impression: Primary Impression: Wellness examination Condition: Stable Additional Instructions: Please return if you do have symptoms of heart failure such as increased shortness of breath chest pain increased swelling in her ankles. For now feel free to take this extra medicine when year systolic blood pressure is greater than 180. Was follow-up with her primary care physician. Referrals: JANETT ZENDEJAS MD (PCP) JUDITH BAKER MD Oct 29, 2024 01:38
[2024-10-29 01:43] VITALS: BP 138/77; PULSE 66; RESP 20; TEMP 98.6; O2SAT 100
== END 2024-10-29 01:46 | disposition home or self-care (01) ==
LOC: EDH 23:02
DX: I10 Essential (primary) hypertension (principal); Z04.89 Encounter for examination and observation for other specified reasons; E11.9 Type 2 diabetes mellitus without complications; E78.00 Pure hypercholesterolemia, unspecified; Z79.02 Long term (current) use of antithrombotics/antiplatelets; Z79.82 Long term (current) use of aspirin; Z79.84 Long term (current) use of oral hypoglycemic drugs; Z79.899 Other long term (current) drug therapy; Z88.6 Allergy status to analgesic agent
CPT/HCPCS: 99281

== ENCOUNTER 2024-11-26 00:18 | Emergency (ER) | payer MEDICAID ==
[~2024-11-26] VITALS: Ht 182.9 cm; Wt 106.6 kg
--- NOTE | 2024-11-26 01:28 | ERN ---
ED Note History of Present Illness Stated Complaint: C/O HIGH B/P WITH CP Chief Complaint: Hypertension Time Seen by MD: 00:25 Dictation: This is a 59-year-old male with multiple medical problems came into the ER stating that he had high blood pressure and he also felt chest pain. No diaphoresis presyncope or syncopal symptoms. No palpitations. No nausea vomitings diarrhea hematemesis or melena. He stated that they went out to eat water burger Eve and when he came back he felt swishing noise in the ear and felt that his blood pressure was elevated. At home the blood pressure was very high but could not recall the exact numbers and he took his blood pressure medication and when he came to the ER his blood pressure was already better. The patient's indicated that he is very a nxious usually at night and does not sleep. He has been taking BuSpar for his anxiety which they think is not helping much. His primary care physician is on medical leave. He stated that every time his blood pressure goes up, he feels a pressure in his chest which usually goes away as soon as the blood pressure is controlled Temperature 97.6� pulse 67 respirations 20 blood pressure 151/95 with a pulse oximetry of 95% on room air His other chronic medical problems include diabetes mellitus, hypertension, coronary artery disease, history of a CVA, pacemaker AICD in place. Allergies: Coded Allergies: ibuprofen (Unverified Allergy, Mild, BLOATING, 04/16/24) INDIGESTION/ACID REFLUX Home Meds Reported Medications Amiodarone HCl (Amiodarone HCl) 200 Mg Tablet, 200 MG PO BID, TAB 09/04/24 Atorvastatin Calcium (LIPITOR) 40 Mg Tablet, 40 MG PO DAILY, TAB 09/04/24 Buspirone HCl (Buspirone HCl) 10 Mg Tablet, 10 MG PO BID, TAB 09/04/24 Eplerenone (Eplerenone) 25 Mg Tablet, 25 MG PO DAILY, TAB 09/04/24 Aspirin (ASPIRIN 81MG CHEW TAB) 81 Mg Tab.chew, 81 MG PO DAILY, TAB.CHEW 09/04/24 Furosemide (Furosemide) 20 Mg Tablet, 20 MG PO DAILY, TAB 09/04/24 Empagliflozin (Jardiance) 10 Mg Tablet, 10 MG PO DAILY, TAB 09/04/24 Amlodipine Besylate (Amlodipine Besylate) 10 Mg Tablet, 10 MG PO DAILY for 30 Days, #30 TAB 0 Refills 09/04/24 Clopidogrel Bisulfate (Clopidogrel) 75 Mg Tablet, 75 MG PO DAILY, TAB 09/04/24 Metoprolol Succinate (Metoprolol Succinate) 50 Mg Tab.er.24h, 50 MG PO DAILY, TAB 09/04/24 Past Medical History Past Medical History: CVA, Diabetes-Type II, Heart Disease, Hypertension Surgical History: Pacer/AICD Surgical History Other: LEFT LEG Family History: Negative Social History: Lives with family RN Note Reviewed/Agreed w/PFSH: Yes Review of System Dictation Constitutional: Negative for fever,chills, and weight loss Eyes: Negative for injury, pain,redness, and discharge ENT: Negative for injury,pain or swelling Cardiovascular: Positive for chest pain, denies palpitations, and edema Respiratory: Negative for shortness of breath, cough, and wheezing, Abdomen/GI: Negative for abdominal pain, nausea, vomiting, diarrhea, and constipation Back: Negative for injury and pain : Negative for injury, bleeding and discharge MS/Extremity: Negative for injury and deformity Skin: Negative for rash, and discoloration Neuro: Negative for headache, weakness, numbness, tingling, and seizure Psych: Negative for suicide ideation, homicidal ideation, and hallucinations Initial Vital Sign VS Vital Signs Date Time Temp Pulse Resp B/P (MAP) Pulse Ox O2 Delivery O2 Flow Rate FiO2 11/26/24 00:19 97.5 67 20 151/95 95 Room Air 11/26/24 00:42 0 21 Physical Exam Dictation General: awake, alert, NAD generally anxious, very obese Head/Face: Normocephalic, atraumatic Eyes: PERRL, EOMI, vision at baseline ENT: oral cavity clear, TMs clear, no signs of infection Neck: Trachea midline, supple, no nuchal rigidity Cardiovascular: RRR, normal S1/S2, No MRGs, no JVD Respiratory: CTAB, no respiratory distress, No rales or wheezes Abdomen: Soft, non-tender, non-distended, normal bowel sounds, no guarding or rebound. Skin: Warm, dry, normal turgor, no rash MS/Extremity: Pulses equal, no cyanosis, neurovascular intact, FROM Neuro: COAx4, GCS 15, strength 5/5, CN 2-12 intact, normal cerebellar exam, normal gait, Psych: Normal behavior, mood, and affect normal Extremities-trace edema without any palpable cords, Homans sign is negative Results (Laboratory/Radiology) Laboratory/Radiology Laboratory Tests Test 11/26/24 01:32 White Blood Count 6.1 K/uL (4.8-10.8) Red Blood Count 4.30 MIL/uL (4.50-6.20) L Hemoglobin 13.8 g/dL (14.0-18.0) L Hematocrit 40.3 % (42-54) L Mean Corpuscular Volume 93.7 fL (79-99) Mean Corpuscular Hemoglobin 32.1 pg (27.0-33.0) Mean Corpuscular Hemoglobin Concent 34.2 g/dL (32.0-36.0) Red Cell Distribution Width 13.2 % (11.0-15.5) Platelet Count 206 K/uL (130-400) Mean Platelet Volume 9.9 fL (7.5-10.5) Immature Granulocyte % (Auto) 0.2 % (0-1) Neutrophils (%) (Auto) 53.2 % (40.0-77.0) Lymphocytes (%) (Auto) 33.4 % (21.0-51.0) Monocytes (%) (Auto) 10.6 % (3.0-13.0) Eosinophils (%) (Auto) 1.8 % (0.0-8.0) Basophils (%) (Auto) 0.8 % (0.0-5.0) Neutrophils # (Auto) 3.2 K/uL (1.8-7.7) Lymphocytes # (Auto) 2.0 K/uL (1.0-4.8) Monocytes # (Auto) 0.6 K/uL (0.1-1.0) Eosinophils # (Auto) 0.11 K/uL (0.00-0.70) Basophils # (Auto) 0.05 K/uL (0.00-0.20) Absolute Immature Granulocyte (auto 0.01 K/uL (0-1) Nucleated Red Blood Cells 0.0 % (0.0-0.19) Sodium Level 140 mmol/L (136-145) Potassium Level 4.0 mmol/L (3.5-5.1) Chloride Level 103 mmol/L (101-111) Carbon Dioxide Level 29 mmol/L (21-32) Blood Urea Nitrogen 25 mg/dL (7-18) H Creatinine 1.6 mg/dL (0.5-1.3) H Glomerular Filtration Rate Calc 49 mL/min (>90) Random Glucose 87 mg/dL (70-105) Total Calcium 8.8 mg/dL (8.5-10.1) Total Creatine Kinase 228 U/L (21-232) # Troponin I High Sensitivity 15.9 ng/L (4-75) Labs Reviewed?: Yes EKG Comment: Twelve lead EKG done on 11/26/2024 at 12:55 a.m. showed a heart rate of 58, VA interval 186, QRS 101, QT/QTC 353/347 Impression normal sinus rhythm with nonspecific ST-T changes EKG rhythm strip normal sinus rhythm with no acute STT wave changes. Interpreted by ER MD Dr. Hassan ED Course ED Course Orders Procedure Category Date Status Time 12 Lead Ekg Tracing- EKG 11/26/24 Logged Technical 00:29 Cbc With Differential LAB 11/26/24 In Process 00:51 B-Type Natriuretic LAB 11/26/24 In Process Peptide 00:51 Chest 1vw RAD 11/26/24 Taken 00:51 Aspirin 325mg Tab PHA 11/26/24 Complete (Aspirin 325mg Tab) 01:00 Urinalysis Profile LAB 11/26/24 Logged 00:51 Basic Metabolic Panel LAB 11/26/24 In Process 00:51 Cardiac Panel LAB 11/26/24 In Process 01:32 Current Medications Medications (Trade) Dose Ordered Sig/Uriah Route PRN Reason Start Time Stop Time Status Last Admin Dose Admin Aspirin (Aspirin 325mg Tab) 325 mg ONCE ONCE PO 11/26/24 01:00 11/26/24 01:01 DC 11/26/24 01:56 Vital Signs Date Time Temp Pulse Resp B/P (MAP) Pulse Ox O2 Delivery O2 Flow Rate FiO2 11/26/24 00:42 98.4 75 18 128/68 99 Room Air* 0 21 11/26/24 00:19 97.5 67 20 151/95 95 Room Air We will perform diagnostic labs, advanced imaging and administer medications according to the patient's complaint. Once the results are available, will review and personally interpreted the labs to rule out any acute life- threatening emergency the trach require immediate intervention and treatment. I will then re-evaluate the patient after treatment and diagnostic exams have return to determine whether the patient requires any further testing, can safely be discharged home or need further admission to hospital for additional treatment and evaluation. Labs reviewed CBC with a normal limits BNP 7 shows the chronic kidney disease. Twelve lead EKG is unremarkable for any acute ST-T elevations. I had a long discussion with the patient and his spouse at bedside and he seems quite anxious and emotionally down with all the health problems. As his primary care physician is on leave, I offered adding trazodone and low- dose at nighttime not only to improve his mood but to help him sleep and he is willing to try that. He wants to be discharged to home. HEART Score Response (Comments) Value History: Low suspicion (0) 0 EKG: Normal 0 Age: 45-65yrs (+1) 1 Risk Factors: 1-2 risk factors (+1) 1 Initial Troponin: Normal limit (0) 0 HEART Score Risk: Low Risk for MACE (1-3) Total 2 Medical Decision Making MDM MDM: Differential diagnosis: Rationale: Tests considered and ordered secondary to shared decision making include: Previous outside records reviewed: Old ER visits. Risk of complication and/or morbidity or mortality of patient management: None Medications-Per medication reconciliation Need for hospitalization: Patient does not meet criteria for hospitalization. Need for emergency major/minor surgery: No There are no social concerns with this patient. Prescription drug management Prescriptions will include symptomatic care Patient's prior external medical records from other ER visits were reviewed by me as indicated. Prior testing and results from previous visits were reviewed. Prior tests were taken into account with medical decision making and resource utilization, independent historian/historians were used to obtain complete medical history. I independently interpreted the test that were performed, results were reviewed by me and considered findings on radiology if ordered. Medical management and examination interpretation discussions were had by me with other qualified healthcare professionals as indicated for the patient's care. Problem List Problem List: (1) Anxiety (2) Hypertensive urgency (3) Obstructive sleep apnea syndrome in adult (4) Morbidly obese (5) Diabetes mellitus DX & DISP Disposition: Discharge Departure Impression: Primary Impression: Hypertensive urgency Additional Impressions: Morbidly obese, Obstructive sleep apnea syndrome in adult, Diabetes mellitus, Chronic renal failure (CRF), stage 1, Anxiety Condition: Stable Scripts Trazodone HCl (Trazodone HCl) 50 Mg Tablet 1 TAB PO HS for 30 Days, #30 TAB 1 Refill Prov: GONSALO HASSAN MD 11/26/24 Additional Instructions: Patient and the caregiver have been informed of all the diagnostic tests and the imaging conducted during the today's visit to the emergency room and has verbalized understanding of the results I have personally reviewed and interpreted all diagnostic exams performed here in the ER today as well as the vital signs documented by the nursing staff. The patient is now being discharged to home and should follow up with the primary care physician or the specialist as directed by the ER staff. Follow-up with primary care provider in 1 to 2 days. Take medications as d irected here in the emergency room. Okay to continue home medications unless otherwise discussed during your visit in the emergency room today. Return to your nearest emergency room if symptoms worsen or if there is no improvement. Call 911 if you need immediate assistance. Take Tylenol or Motrin [id number] as needed and if no contraindications are present. Increase oral hydration. A wound culture or urine culture was ordered here in the emergency room department please follow-up with primary care provider and advise them to get repeat ports from our facility. If you had any [place] wrap/splints that were applied here, please do not remove them until you see your primary care or specialty. Referrals: JANETT ZENDEJAS MD (PCP) GONSALO HASSAN MD November 26, 2024 01:28
[2024-11-26 01:40] LABS: BASOPHILS # (AUTO) 0.05 K/uL (0.00-0.20); BASOPHILS % (AUTO) 0.8 % (0.0-5.0); EOSINOPHILS # (AUTO) 0.11 K/uL (0.00-0.70); EOSINOPHILS % (AUTO) 1.8 % (0.0-8.0); HEMATOCRIT 40.3 % (42-54); IMMATURE GRANULOCYTE ABSOLUTE 0.01 K/uL (0-1); LYMPHOCYTES % (AUTO) 33.4 % (21.0-51.0); MEAN CORPUSCULAR HEMOGLOBIN 32.1 pg (27.0-33.0); MEAN CORPUSCULAR HGB CONC 34.2 g/dL (32.0-36.0); MEAN CORPUSCULAR VOLUME 93.7 fL (79-99); MONOCYTES # (AUTO) 0.6 K/uL (0.1-1.0); MONOCYTES % (AUTO) 10.6 % (3.0-13.0); NEUTROPHILS # (AUTO) 3.2 K/uL (1.8-7.7); NEUTROPHILS % (AUTO) 53.2 % (40.0-77.0); PLATELET COUNT (AUTO) 206 K/uL (130-400); RED CELL DISTRIBUTION WIDTH 13.2 % (11.0-15.5); WHITE BLOOD COUNT (AUTO) 6.1 K/uL (4.8-10.8)
[2024-11-26 01:47] LABS: CREATININE 1.6 mg/dL (0.5-1.3)
[2024-11-26] MEDS: ASPIRIN 325MG TAB PO ONE (01:56)
[2024-11-26] MEDS ORDERED: TRAZ-185 PO (01:59)
[2024-11-26 02:09] LABS: B-TYPE NATRIURETIC PEPTIDE 24 pg/mL (0-100)
[2024-11-26] MEDS: trAZOdone HCL 50 MG TAB PO ONE (02:23)
[2024-11-26 02:49] VITALS: BP 132/55; PULSE 72; RESP 18; TEMP 98.4; O2SAT 95
--- NOTE | 2024-11-26 08:33 | EKG ---
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
--- NOTE | 2024-11-26 09:04 | HMCIMG ---
Exam Type: CHEST 1VW Clinical Information: chest pain Comparison: None Findings: The lungs are clear of infiltrates. The heart is enlarged in size. The bony and soft tissue structures of the chest are unremarkable. Left cardiac pacemaker is noted with leads in place. Impression: Clear lungs.
== END 2024-11-26 02:44 | disposition home or self-care (01) ==
LOC: EDH 00:18
DX: I16.0 Hypertensive urgency (principal); E66.01 Morbid (severe) obesity due to excess calories; G47.33 Obstructive sleep apnea (adult) (pediatric); I12.9 Hypertensive chronic kidney disease with stage 1 through stage 4 chronic kidney disease, or unspecified chronic kidney disease; E11.22 Type 2 diabetes mellitus with diabetic chronic kidney disease; N18.9 Chronic kidney disease, unspecified; F41.9 Anxiety disorder, unspecified; Z79.02 Long term (current) use of antithrombotics/antiplatelets; Z79.82 Long term (current) use of aspirin; Z79.84 Long term (current) use of oral hypoglycemic drugs; Z79.899 Other long term (current) drug therapy; Z86.73 Personal history of transient ischemic attack (TIA), and cerebral infarction without residual deficits; Z88.6 Allergy status to analgesic agent; Z95.810 Presence of automatic (implantable) cardiac defibrillator
CPT/HCPCS: 36415; 71045; 80048; 82550; 83880; 84484; 85025; 93005; 99285

== ENCOUNTER 2024-12-15 18:59 | Emergency (ER) | payer MEDICAID ==
[~2024-12-15] VITALS: Ht 182.9 cm; Wt 60.3 kg
[~2024-12-15 18:59] MED LIST changes: +TRAZ-185 PO
--- NOTE | 2024-12-15 19:11 | ERN ---
ED Note History of Present Illness Stated Complaint: CONGESTED,FEVER,CANT CLEAR THROAT Chief Complaint: Sore Throat Time Seen by MD: 19:00 Dictation: PATIENT IS A 59-YEAR-OLD MALE COMING IN TODAY WITH FLU-LIKE SYMPTOMS TO INCLUDE SORE THROAT FEELS LIKE HE IS CONGESTED, STATES HE CAN NOT CLEAR HIS THROAT. STATES HE WILL HAVE INTERMITTENT CHEST PAIN WITH HIS COUGH. ONLY STATES HE HAD NO FEVER NO CHILLS. STATES HE WAS SEEN AT URGENT CARE YESTERDAY AND HAD SWABS FOR FLU COVID AND STREP TOLD EVERYTHING WAS NEGATIVE AND GO SEE HIS DOCTOR. STATES HE DID NOT GO SEE HIS DOCTOR TODAY AND TONIGHT WAS NOT AVAILABLE AT HIS DOCTOR'S SO HE CAME OVER TO THE EMERGENCY ROOM AT [facility]. PATIENT HAS A HISTORY OF CAD DIABETES HYPERTENSION AND HAS A PRIOR STROKE WITH CHRONIC LEFT HEMIPARESIS Allergies: Coded Allergies: ibuprofen (Unverified Allergy, Mild, BLOATING, 04/16/24) INDIGESTION/ACID REFLUX Home Meds Active Scripts Trazodone HCl (Trazodone HCl) 50 Mg Tablet, 1 TAB PO HS for 30 Days, #30 TAB 1 Refill Prov:GONSALO HASSAN MD 11/26/24 Reported Medications Amiodarone HCl (Amiodarone HCl) 200 Mg Tablet, 200 MG PO BID, TAB 09/04/24 Atorvastatin Calcium (LIPITOR) 40 Mg Tablet, 40 MG PO DAILY, TAB 09/04/24 Buspirone HCl (Buspirone HCl) 10 Mg Tablet, 10 MG PO BID, TAB 09/04/24 Eplerenone (Eplerenone) 25 Mg Tablet, 25 MG PO DAILY, TAB 09/04/24 Aspirin (ASPIRIN 81MG CHEW TAB) 81 Mg Tab.chew, 81 MG PO DAILY, TAB.CHEW 09/04/24 Furosemide (Furosemide) 20 Mg Tablet, 20 MG PO DAILY, TAB 09/04/24 Empagliflozin (Jardiance) 10 Mg Tablet, 10 MG PO DAILY, TAB 09/04/24 Amlodipine Besylate (Amlodipine Besylate) 10 Mg Tablet, 10 MG PO DAILY for 30 Days, #30 TAB 0 Refills 09/04/24 Clopidogrel Bisulfate (Clopidogrel) 75 Mg Tablet, 75 MG PO DAILY, TAB 09/04/24 Metoprolol Succinate (Metoprolol Succinate) 50 Mg Tab.er.24h, 50 MG PO DAILY, TAB 09/04/24 Past Medical History Past Medical History: CVA, Diabetes-Type II, Heart Disease, Hypertension Surgical History: Pacer/AICD Surgical History Other: LEFT LEG Family History: Negative Social History: Lives with family RN Note Reviewed/Agreed w/PFSH: Yes Review of System Dictation CONSTITUTIONAL: NEGATIVE EXCEPT FOR HPI HEAD/FACE: NEGATIVE EXCEPT FOR HPI EENT: NEGATIVE EXCEPT FOR HPI SORE THROAT PAINFUL SWALLOWING RESPIRATORY: NEGATIVE EXCEPT FOR HPI CONGESTION/SOB GASTROINTESTINAL/ABDOMINAL: NEGATIVE EXCEPT FOR HPI GENITOURINARY: NEGATIVE EXCEPT FOR HPI MUSCULOSKELETAL: NEGATIVE EXCEPT FOR HPI INTEGUMENTARY: NEGATIVE EXCEPT FOR HPI NEUROLOGICAL/PSYCH: NEGATIVE EXCEPT FOR HPI HEMATOLOGIC/LYMPHATIC: NEGATIVE EXCEPT FOR HPI ALL SYSTEMS NEGATIVE, EXCEPT NOTED ABOVE. 13 POINT REVIEW OF SYSTEMS ASSESSED AND ALL NEGATIVE EXCEPT FOR ABOVE. Initial Vital Sign VS Vital Signs Date Time Temp Pulse Resp B/P (MAP) Pulse Ox O2 Delivery O2 Flow Rate FiO2 12/15/24 19:05 98.6 61 20 129/77 96 Room Air 12/15/24 19:43 0 21 Physical Exam Dictation VITAL SIGNS REVIEWED GENERAL APPEARANCE: ALERT, ORIENTED X 3, NO ACUTE DISTRESS, WELL DEVELOPED, NOURISHED. HEAD AND FACE: NON-TRAUMATIC. EYES: PERRL, PINK CONJUNCTIVAS, EYELID NO TRAUMA, ANTERIOR CHAMBER WITH ARCUS SENILIS. EARS: PINNAS INTACT AND NO SIGNS OF TRAUMA OR ERYTHEMA EAR CANALS CLEAR AND NO DISCHARGE TM NO ERYTHEMA NOSE: NO DISCHARGE, NO BLEEDING. OROPHARYNX: MOUTH NORMAL, TONGUE PINK, PHARYNX CLEAR MILD PHARYNGEAL ERYTHEMA, TONSILS NO EXUDATES, NO ABSCESSES NOTED, MUCOUS MEMBRANE MOIST UVULA MIDLINE, VOICE IS CLEAR NECK: SUPPLE, NON-TENDER, NO THYROMEGALY, NO MASSES, NO JVD, NO BRUITS BREAST:DEFERRED CHEST:NO TENDERNESS, NO CREPITUS, NO PARADOXICAL MOVEMENT, NO RETRACTIONS LUNGS:CLEAR, WELL-VENTILATED, SYMMETRIC, NO RALES, NO WHEEZING, NO RHONCHI, NO STRIDOR, GOOD BREATH SOUNDS BILATERALLY HEART: REGULAR RATE, REGULAR RHYTHM, NO MURMUR, NO GALLOPS VASCULAR: NO PERIPHERAL EDEMA, ABDOMEN: SOFT, POSITIVE BOWEL SOUNDS, NONDISTENDED, NO GUARDING, NONTENDER, NO REBOUND, NO MASSES NO HEPATOMEGALY, NO SPLENOMEGALY, NO COLEMAN'S SIGN, NO HERNIAS. RECTAL: DEFERRED GENITAL: DEFERRED NEUROLOGICAL: NORMAL SPEECH, CHRONIC LEFT HEMIPARESIS MUSCULOSKELETAL: NECK NONTENDER, FULL RANGE OF MOTION, BACK NONTENDER, FULL RANGE OF MOTION, EXTREMITIES: NONTENDER, FULL RANGE OF MOTION SKIN: COLOR PINK, DRY, NO TURGOR, NO RASH, NO LACERATIONS, NO ABRASIONS, NO CO NTUSIONS. LYMPHATIC: DEFERRED Results (Laboratory/Radiology) Laboratory/Radiology Laboratory Tests Test 12/15/24 19:19 12/15/24 19:35 SARS-CoV-2 Antigen (Rapid) PRESUMPTIVE NEGATIVE White Blood Count 7.8 K/uL (4.8-10.8) Red Blood Count 4.16 MIL/uL (4.50-6.20) L Hemoglobin 13.3 g/dL (14.0-18.0) L Hematocrit 38.5 % (42-54) L Mean Corpuscular Volume 92.5 fL (79-99) Mean Corpuscular Hemoglobin 32.0 pg (27.0-33.0) Mean Corpuscular Hemoglobin Concent 34.5 g/dL (32.0-36.0) Red Cell Distribution Width 13.6 % (11.0-15.5) Platelet Count 199 K/uL (130-400) Mean Platelet Volume 10.3 fL (7.5-10.5) Immature Granulocyte % (Auto) 0.3 % (0-1) Neutrophils (%) (Auto) 55.6 % (40.0-77.0) Lymphocytes (%) (Auto) 28.2 % (21.0-51.0) Monocytes (%) (Auto) 13.2 % (3.0-13.0) H Eosinophils (%) (Auto) 2.2 % (0.0-8.0) Basophils (%) (Auto) 0.5 % (0.0-5.0) Neutrophils # (Auto) 4.3 K/uL (1.8-7.7) Lymphocytes # (Auto) 2.2 K/uL (1.0-4.8) Monocytes # (Auto) 1.0 K/uL (0.1-1.0) Eosinophils # (Auto) 0.17 K/uL (0.00-0.70) Basophils # (Auto) 0.04 K/uL (0.00-0.20) Absolute Immature Granulocyte (auto 0.02 K/uL (0-1) Nucleated Red Blood Cells 0.0 % (0.0-0.19) Sodium Level 138 mmol/L (136-145) Potassium Level 4.0 mmol/L (3.5-5.1) Chloride Level 106 mmol/L (101-111) Carbon Dioxide Level 28 mmol/L (21-32) Blood Urea Nitrogen 21 mg/dL (7-18) H Creatinine 1.8 mg/dL (0.5-1.3) H Glomerular Filtration Rate Calc 42 mL/min (>90) Random Glucose 90 mg/dL (70-105) Total Calcium 8.7 mg/dL (8.5-10.1) Troponin I High Sensitivity 27 ng/L (4-75) B-Type Natriuretic Peptide 61 pg/mL (0-100) INDICATION: SOB/COUGH TECHNIQUE: CHEST 1VW COMPARISON: 11/26/2024 FINDINGS AND IMPRESSION: Prominent bilateral interstitial markings which may represent bronchitis or vascular congestion in the proper clinical setting. Cardiac silhouette is within normal limits. Mild degenerative changes of the spine. Left-sided AICD is noted. Labs Reviewed?: Yes EKG Comment: BRADYCARDIA/HEART RATE 56/AXIS NORMAL/NO ECTOPY ED Course ED Course Orders Procedure Category Date Status Time Covid19 (Sars Antigen LAB 12/15/24 Complete Rapid) 19:06 Cbc With Differential LAB 12/15/24 Complete 19:06 B-Type Natriuretic LAB 12/15/24 Complete Peptide 19:06 Chest 1vw RAD 12/15/24 Resulted 19:06 12 Lead Ekg Tracing- EKG 12/15/24 Logged Technical 19:06 Troponin I High LAB 12/15/24 Complete Sensitivity 19:06 Basic Metabolic Panel LAB 12/15/24 Complete 19:06 Albuterol 0.083% PHA 12/15/24 Complete 2.5mg/3ml (Proventil 19:30 Rapid (Group A Strep) LAB 12/15/24 Logged 19:06 Azithromycin PHA 12/15/24 Transmitted (Zithromax) 21:45 Current Medications Medications (Trade) Dose Ordered Sig/Uriah Route PRN Reason Start Time Stop Time Status Last Admin Dose Admin Albuterol Sulfate (Proventil 0.083% 2.5mg/3ml) 2.5MG ONCE ONCE IH 12/15/24 19:30 12/15/24 19:31 DC 12/15/24 19:53 Vital Signs Date Time Temp Pulse Resp B/P (MAP) Pulse Ox O2 Delivery O2 Flow Rate FiO2 12/15/24 21:30 98.1 65 18 139/75 99 Room Air* 0 21 12/15/24 19:53 56 18 12/15/24 19:43 98.6 61 20 129/77 96 Room Air* 0 21 12/15/24 19:05 98.6 61 20 129/77 96 Room Air 2145/PATIENT WILL BE GIVEN AZITHROMYCIN 500 MG P.O. FOR ACUTE BACTERIAL BRONCHITIS. HE WILL ALSO BE MADE AWARE HE HAS STAGE 3 CHRONIC KIDNEY DISEASE WE WILL BE REFERRED BACK TO HIS PRIMARY CARE DOCTOR IN THE NEXT ONE TWO DAYS DISCHARGED HOME WITH THE AZITHROMYCIN ALBUTEROL HEART Score Response (Comments) Value History: Low suspicion (0) 0 EKG: Repolarization changes 1 Age: 45-65yrs (+1) 1 Risk Factors: 3+ risk factors (+2) 2 Initial Troponin: Normal limit (0) 0 Total 4 Medical Decision Making MDM MEDICAL DISCHARGE MAKING BASED FOR SWABS FOR SARS COVID AND CARDIAC WORKUP. CARDIAC WORKUP NEGATIVE BNP UNREMARKABLE PATIENT HAS STAGE 3 CHRONIC KIDNEY DISEASE TREATED FOR ACUTE BACTERIAL BRONCHITIS DX & DISP Disposition: Discharge Departure Impression: Primary Impression: Acute bacterial bronchitis Additional Impressions: Stage 3 chronic kidney disease, Cough Condition: Stable Scripts Benzonatate (Tessalon Perles) 100 Mg Cap 200 MG PO TID for cough, #30 CAP 0 Refills Prov: SHANAE IBARRA SUEDING MACHINE OPERATOR 12/15/24 Albuterol Sulfate (Ventolin Hfa/Proventil Hfa/Proair Hfa) 90 Mcg Puff 2 PUFF IH Q4H for WHEEZING, #1 INHALER 0 Refills Prov: SHANAE IBARRA NP 12/15/24 Azithromycin (Zithromax Tri-Felipe) 500 Mg Tablet 500 MG PO DAILY for 7 Days, #7 TAB Prov: SHANAE IBARRA NP 12/15/24 Additional Instructions: FOLLOW-UP WITH PRIMARY CARE PROVIDER IN 1 TO 2 DAYS. TAKE MEDICATIONS DIRECTED HERE IN THE EMERGENCY ROOM. OKAY TO CONTINUE HOME MEDICATIONS UNLESS OTHERWISE DISCUSSED DURING YOUR VISIT IN THE EMERGENCY ROOM TODAY. RETURN TO YOUR NEAREST EMERGENCY ROOM IF SYMPTOMS WORSEN OR IF THERE IS NO IMPROVEMENT. CALL 911 IF YOU NEED IMMEDIATE ASSISTANCE. TAKE TYLENOL OR MOTRIN [id number] NEEDED AND IF NO CONTRAINDICATIONS ARE PRESENT. INCREASE ORAL HYDRATION. A WOUND CULTURE OR URINE CULTURE WAS ORDERED HERE IN THE EMERGENCY ROOM DEPARTMENT PLEASE FOLLOW-UP WITH PRIMARY CARE PROVIDER AND ADVISE THEM TO GET REPEAT PORTS FROM OUR FACILITY. IF YOU HAD ANY JT WRAP/SPLINTS THAT WERE APPLIED HERE, PLEASE DO NOT REMOVE THEM UNTIL YOU SEE YOUR PRIMARY CARE OR SPECIALTY. TAKE ANTIBIOTIC DIRECTED UNTIL GONE STARTING TOMORROW. USE ALBUTEROL INHALER EVERY 4 HOURS WHILE AWAKE FOR THE NEXT THREE DAYS. FOLLOW UP WITH YOUR PRIMARY CARE DOCTOR FOR THE NEXT 1-2 DAYS Referrals: JANETT ZENDEJAS MD (PCP) Time of Disposition: 21:48 I have reviewed the case, and I agree with, Diagnosis and Plan SHANAE IBARRA SUEDING MACHINE OPERATOR Dec 15, 2024 19:11
[2024-12-15 19:46] LABS: BASOPHILS # (AUTO) 0.04 K/uL (0.00-0.20); BASOPHILS % (AUTO) 0.5 % (0.0-5.0); EOSINOPHILS # (AUTO) 0.17 K/uL (0.00-0.70); EOSINOPHILS % (AUTO) 2.2 % (0.0-8.0); HEMATOCRIT 38.5 % (42-54); IMMATURE GRANULOCYTE ABSOLUTE 0.02 K/uL (0-1); LYMPHOCYTES # (AUTO) 2.2 K/uL (1.0-4.8); LYMPHOCYTES % (AUTO) 28.2 % (21.0-51.0); MEAN CORPUSCULAR HGB CONC 34.5 g/dL (32.0-36.0); MEAN CORPUSCULAR VOLUME 92.5 fL (79-99); MONOCYTES % (AUTO) 13.2 % (3.0-13.0); NEUTROPHILS # (AUTO) 4.3 K/uL (1.8-7.7); NEUTROPHILS % (AUTO) 55.6 % (40.0-77.0); PLATELET COUNT (AUTO) 199 K/uL (130-400); RED BLOOD CELL COUNT(AUTO) 4.16 MIL/uL (4.50-6.20); RED CELL DISTRIBUTION WIDTH 13.6 % (11.0-15.5); WHITE BLOOD COUNT (AUTO) 7.8 K/uL (4.8-10.8)
[2024-12-15 19:53] VITALS: PULSE 56; RESP 18
[2024-12-15] MEDS: ALBUTEROL 0.083% 2.5 MG/3 ML INH IH ONE (19:53)
[2024-12-15 19:56] LABS: CREATININE 1.8 mg/dL (0.5-1.3)
[2024-12-15 20:09] LABS: B-TYPE NATRIURETIC PEPTIDE 61 pg/mL (0-100)
--- NOTE | 2024-12-15 21:21 | HMCIMG ---
INDICATION: SOB/COUGH TECHNIQUE: CHEST 1VW COMPARISON: 11/26/2024 FINDINGS AND IMPRESSION: Prominent bilateral interstitial markings which may represent bronchitis or vascular congestion in the proper clinical setting. Cardiac silhouette is within normal limits. Mild degenerative changes of the spine. Left-sided AICD is noted.
[2024-12-15 21:30] VITALS: BP 139/75; PULSE 65; RESP 18; TEMP 98.1; O2SAT 99
[2024-12-15] MEDS ORDERED: BENZ-39 PO (21:49)
[2024-12-15] MEDS ORDERED: AZIT500T2 PO (21:49)
[2024-12-15] MEDS ORDERED: ALBUHFA IH (21:49)
[2024-12-15] MEDS: AZITHROMYCIN 250 MG TABLET PO STA (21:51)
--- NOTE | 2024-12-16 06:13 | EKG ---
[facility] Test Date: 2024-12-15 Test Time: 19:36:24 Pat Name: RAFAEL AYALA Department: ED Room: Gender: M Whip Sawyer: [id number] : 1965 Requested By: SHANAE IBARRA Order Number: [id number] Reading MD: Kenney Payne Measurements Intervals [place] Rate: 56 P: 61 GA: 211 QRS: 12 QRSD: 101 T: -2 QT: 420 QTc: 406 Interpretive Statements Sinus rhythm Compared to ECG 11/26/2024 00:55:53 No significant changes Electronically Signed On 12-16-2024 11:34:56 CDT by Kenney Payne Please click the below link to view image of tracing.
== END 2024-12-15 21:56 | disposition home or self-care (01) ==
LOC: EDH 18:59
DX: J20.8 Acute bronchitis due to other specified organisms (principal); I12.9 Hypertensive chronic kidney disease with stage 1 through stage 4 chronic kidney disease, or unspecified chronic kidney disease; E11.22 Type 2 diabetes mellitus with diabetic chronic kidney disease; N18.30 Chronic kidney disease, stage 3 unspecified; B96.89 Other specified bacterial agents as the cause of diseases classified elsewhere; Z79.02 Long term (current) use of antithrombotics/antiplatelets; Z79.82 Long term (current) use of aspirin; Z79.84 Long term (current) use of oral hypoglycemic drugs; Z79.899 Other long term (current) drug therapy; Z86.73 Personal history of transient ischemic attack (TIA), and cerebral infarction without residual deficits; Z88.6 Allergy status to analgesic agent; Z95.810 Presence of automatic (implantable) cardiac defibrillator; Z20.822 Contact with and (suspected) exposure to COVID-19
CPT/HCPCS: 36415; 71045; 80048; 83880; 84484; 85025; 87426; 93005; 94640; 99285

== ENCOUNTER 2024-12-20 15:00 | Emergency (ER) | payer MEDICAID ==
[~2024-12-20] VITALS: Ht 182.9 cm; Wt 142.9 kg
[~2024-12-20 15:00] MED LIST changes: +ALBUHFA IH; +AZIT500T2 PO; +BENZ-39 PO
--- NOTE | 2024-12-20 15:12 | ERN ---
ED Note History of Present Illness Stated Complaint: HYPERTENSION, BACK PAIN. CHEST DISCOMFORT Chief Complaint: Chest Pain Time Seen by MD: 15:05 Dictation: PATIENT IS A 59-YEAR-OLD MALE COMING IN TODAY WITH COMPLAINTS OF EPIGASTRIC AND SUBSTERNAL PAIN THAT IS DESCRIBED BURNING. ONSET WAS YESTERDAY AFTER HE ATE SOME SAUSAGE. HE STATES HE THINKS IT IS BECAUSE A SAUSAGE IS HIGH IN SODIUM IT CAUSED HIM TO HAVE THE BURNING SENSATION TO THE EPIGASTRIUM AND CHEST. HE DENIES ANY REFERRED PAIN. NO NAUSEA NO VOMITING NO ARM PAIN NO JAW PAIN. STATES HE DOES HAVE A HISTORY OF CAD HYPERTENSION DIABETES HE HAS HAD A PRIOR STROKE WITH A CHRONIC LEFT HEMIPLEGIA. 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 Allergies: Coded Allergies: ibuprofen (Unverified Allergy, Mild, BLOATING, 04/16/24) INDIGESTION/ACID REFLUX Home Meds Active Scripts Benzonatate (Tessalon Perles) 100 Mg Cap, 200 MG PO TID for cough, #30 CAP 0 Refills Prov:SHANAE IBARRA NP 12/15/24 Albuterol Sulfate (Ventolin Hfa/Proventil Hfa/Proair Hfa) 90 Mcg Puff, 2 PUFF IH Q4H for WHEEZING, #1 INHALER 0 Refills Prov:SHANAE IBARRA NP 12/15/24 Azithromycin (Zithromax Tri-Felipe) 500 Mg Tablet, 500 MG PO DAILY for 7 Days, #7 TAB Prov:SHANAE IBARRA NP 12/15/24 Trazodone HCl (Trazodone HCl) 50 Mg Tablet, 1 TAB PO HS for 30 Days, #30 TAB 1 Refill Prov:GONSALO HASSAN MD 11/26/24 Reported Medications Amiodarone HCl (Amiodarone HCl) 200 Mg Tablet, 200 MG PO BID, TAB 09/04/24 Atorvastatin Calcium (LIPITOR) 40 Mg Tablet, 40 MG PO DAILY, TAB 09/04/24 Buspirone HCl (Buspirone HCl) 10 Mg Tablet, 10 MG PO BID, TAB 09/04/24 Eplerenone (Eplerenone) 25 Mg Tablet, 25 MG PO DAILY, TAB 09/04/24 Aspirin (ASPIRIN 81MG CHEW TAB) 81 Mg Tab.chew, 81 MG PO DAILY, TAB.CHEW 09/04/24 Furosemide (Furosemide) 20 Mg Tablet, 20 MG PO DAILY, TAB 09/04/24 Empagliflozin (Jardiance) 10 Mg Tablet, 10 MG PO DAILY, TAB 09/04/24 Amlodipine Besylate (Amlodipine Besylate) 10 Mg Tablet, 10 MG PO DAILY for 30 Days, #30 TAB 0 Refills 09/04/24 Clopidogrel Bisulfate (Clopidogrel) 75 Mg Tablet, 75 MG PO DAILY, TAB 09/04/24 Metoprolol Succinate (Metoprolol Succinate) 50 Mg Tab.er.24h, 50 MG PO DAILY, TAB 09/04/24 Past Medical History Past Medical History: CAD, CVA, Diabetes-Type II, Hypertension, [place], Stroke Additional Past Medical Hx: LEFT SIDE WEAKNESS S/P STROKE Surgical History: Pacer/AICD Surgical History Other: LEFT LEG STENT, DEFIBRILATOR Family History: Negative Social History: Lives with family RN Note Reviewed/Agreed w/PFSH: Yes Review of System Dictation CONSTITUTIONAL: NEGATIVE EXCEPT FOR HPI HEAD/FACE: NEGATIVE EXCEPT FOR HPI EENT: NEGATIVE EXCEPT FOR HPI RESPIRATORY: NEGATIVE EXCEPT FOR HPI GASTROINTESTINAL/ABDOMINAL: NEGATIVE EXCEPT FOR HPI SUBSTERNAL CHEST PAIN BURNING GENITOURINARY: NEGATIVE EXCEPT FOR HPI MUSCULOSKELETAL: NEGATIVE EXCEPT FOR HPI INTEGUMENTARY: NEGATIVE EXCEPT FOR HPI NEUROLOGICAL/PSYCH: NEGATIVE EXCEPT FOR HPI HEMATOLOGIC/LYMPHATIC: NEGATIVE EXCEPT FOR HPI ALL SYSTEMS NEGATIVE, EXCEPT NOTED ABOVE. 13 POINT REVIEW OF SYSTEMS ASSESSED AND ALL NEGATIVE EXCEPT FOR ABOVE. Initial Vital Sign VS Vital Signs Date Time Temp Pulse Resp B/P (MAP) Pulse Ox O2 Delivery O2 Flow Rate FiO2 12/20/24 15:02 98.1 68 16 136/90 96 0 12/20/24 16:13 Room Air* 21 Physical Exam Dictation VITAL SIGNS REVIEWED GENERAL APPEARANCE: ALERT, ORIENTED X 3, MY ACUTE DISTRESS, WELL DEVELOPED, NOURISHED. MORBID OBESITY HEAD AND FACE: NON-TRAUMATIC. EYES: PERRL, PINK CONJUNCTIVAS, EYELID NO TRAUMA, ANTERIOR CHAMBER WITH ARCUS SENILIS. EARS: PINNAS INTACT AND NO SIGNS OF TRAUMA OR ERYTHEMA EAR CANALS CLEAR AND NO DISCHARGE TM NO ERYTHEMA NOSE: NO DISCHARGE, NO BLEEDING. OROPHARYNX: MOUTH NORMAL, TONGUE PINK, PHARYNX CLEAR,NO ERYTHEMA, TONSILS NO EXUDATES, NO ABSCESSES NOTED, MUCOUS MEMBRANE MOIST NECK: SUPPLE, NON-TENDER, NO THYROMEGALY, NO MASSES, NO JVD, NO BRUITS BREAST:DEFERRED CHEST:NO TENDERNESS, NO CREPITUS, NO PARADOXICAL MOVEMENT, NO RETRACTIONS LUNGS:CLEAR, WELL-VENTILATED, SYMMETRIC, NO RALES, NO WHEEZING, NO RHONCHI, NO STRIDOR, GOOD BREATH SOUNDS BILATERALLY HEART: REGULAR RATE, REGULAR RHYTHM, NO MURMUR, NO GALLOPS VASCULAR: NO PERIPHERAL EDEMA, ABDOMEN: SOFT, POSITIVE BOWEL SOUNDS, NONDISTENDED, NO GUARDING, MILD EPIGASTRIC TENDERNESS, NO REBOUND, NO MASSES NO HEPATOMEGALY, NO SPLENOMEGALY, NO COLEMAN'S SIGN, NO HERNIAS. RECTAL: DEFERRED GENITAL: DEFERRED NEUROLOGICAL: NORMAL SPEECH, MOTOR FUNCTION INTACT, SENSORY FUNCTION INTACT MUSCULOSKELETAL: NECK NONTENDER, FULL RANGE OF MOTION, BACK NONTENDER, FULL RANGE OF MOTION, CHRONIC LEFT HEMIPLEGIA FROM CVA SEVERAL YEARS AGO EXTREMITIES: NONTENDER, FULL RANGE OF MOTION SKIN: COLOR PINK, DRY, NO TURGOR, NO RASH, NO LACERATIONS, NO ABRASIONS, NO CONTUSIONS. LYMPHATIC: DEFERRED Results (Laboratory/Radiology) Laboratory/Radiology Laboratory Tests Test 12/20/24 15:20 12/20/24 15:39 White Blood Count 10.2 K/uL (4.8-10.8) Red Blood Count 4.30 MIL/uL (4.50-6.20) L Hemoglobin 13.6 g/dL (14.0-18.0) L Hematocrit 40.6 % (42-54) L Mean Corpuscular Volume 94.4 fL (79-99) Mean Corpuscular Hemoglobin 31.6 pg (27.0-33.0) Mean Corpuscular Hemoglobin Concent 33.5 g/dL (32.0-36.0) Red Cell Distribution Width 14.0 % (11.0-15.5) Platelet Count 198 K/uL (130-400) Mean Platelet Volume 9.9 fL (7.5-10.5) Immature Granulocyte % (Auto) 0.4 % (0-1) Neutrophils (%) (Auto) 58.1 % (40.0-77.0) Lymphocytes (%) (Auto) 28.4 % (21.0-51.0) Monocytes (%) (Auto) 11.0 % (3.0-13.0) Eosinophils (%) (Auto) 1.6 % (0.0-8.0) Basophils (%) (Auto) 0.5 % (0.0-5.0) Neutrophils # (Auto) 5.9 K/uL (1.8-7.7) Lymphocytes # (Auto) 2.9 K/uL (1.0-4.8) Monocytes # (Auto) 1.1 K/uL (0.1-1.0) H Eosinophils # (Auto) 0.16 K/uL (0.00-0.70) Basophils # (Auto) 0.05 K/uL (0.00-0.20) Absolute Immature Granulocyte (auto 0.04 K/uL (0-1) Nucleated Red Blood Cells 0.0 % (0.0-0.19) Sodium Level 138 mmol/L (136-145) Potassium Level 3.9 mmol/L (3.5-5.1) Chloride Level 106 mmol/L (101-111) Carbon Dioxide Level 27 mmol/L (21-32) Blood Urea Nitrogen 32 mg/dL (7-18) H Creatinine 1.7 mg/dL (0.5-1.3) H Glomerular Filtration Rate Calc 45 mL/min (>90) Random Glucose 92 mg/dL (70-105) Total Calcium 8.6 mg/dL (8.5-10.1) Troponin I High Sensitivity 27 ng/L (4-75) B-Type Natriuretic Peptide 25 pg/mL (0-100) Urine Color LIGHT-YELLOW (YELLOW) Urine Appearance CLEAR (CLEAR) Urine pH 5.5 (5.0-8.0) Urine Specific Ross 1.018 (1.001-1.031) Urine Protein NEGATIVE mg/dL (NEGATIVE) Urine Glucose (UA) NEGATIVE mg/dL (NEGATIVE) Urine Ketones NEGATIVE mg/dL (NEGATIVE) Urine Occult Blood NEGATIVE (NEGATIVE) Urine Nitrate NEGATIVE (NEGATIVE) Urine Bilirubin NEGATIVE mg/dL (NEGATIVE) Urine Urobilinogen 0.2 mg/dL (0.2-1.0) Urine Leukocyte Esterase NEGATIVE Felicitas/uL X-RAY SHOWS CARDIOMEGALY WITH PACEMAKER Labs Reviewed?: Yes EKG: (+) NSR EKG Comment: EKG NORMAL SINUS RHYTHM/HEART RATE 61/AXIS NORMAL/NO ECTOPY ED Course ED Course Orders Procedure Category Date Status Time Vital Signs Per CPOE 12/20/24 Transmitted Routine 15:05 B-Type Natriuretic LAB 6/8/25 Complete Peptide 15:05 Chest 1vw RAD 12/20/24 Resulted 15:05 12 Lead Ekg Tracing- EKG 12/20/24 Logged Technical 15:05 Oxygen By Nc/Pulse Ox CPOE 12/20/24 Transmitted 15:05 Maintain Iv CPOE 12/20/24 Transmitted 15:05 Iv Insertion CPOE 12/20/24 Transmitted 15:05 Cardiac Monitoring CPOE 12/20/24 Transmitted 15:05 Pulse Oximetry With CPOE 12/20/24 Transmitted Vs And Prn 15:05 Cbc With Differential LAB 12/20/24 Complete 15:05 Activity: Br W/Brp CPOE 12/20/24 Transmitted With Assist 15:05 Troponin I High LAB 12/20/24 Complete Sensitivity 15:05 Urinalysis Profile LAB 12/20/24 Complete 15:05 Basic Metabolic Panel LAB 12/20/24 Complete 15:05 Lidocaine Hcl 2% PHA 12/20/24 Complete Viscous (Lidocaine Hcl 15:30 Mag/Alum/Simeth 30ml PHA 12/20/24 Complete (Maalox Plus 30ml) 15:30 Dicyclomine Hcl PHA 12/20/24 Complete (Bentyl 10mg/5ml 15:30 Mag/Alum/Simeth 30ml PHA 12/20/24 Complete (Maalox Plus 30ml) 15:23 Dicyclomine Hcl PHA 12/20/24 Complete (Bentyl 10mg/5ml 15:23 Current Medications Medications (Trade) Dose Ordered Sig/Uriah Route PRN Reason Start Time Stop Time Status Last Admin Dose Admin Al Hydroxide/Mg Hydroxide (MAALox PLUS 30ML) 30 ml ONCE ONCE PO 12/20/24 15:30 12/20/24 15:31 DC 12/20/24 15:26 Al Hydroxide/Mg Hydroxide (MAALox PLUS 30ML) 30 ml STK-MED ONCE .ROUTE 12/20/24 15:23 12/20/24 15:25 DC Dicyclomine HCl (Bentyl 10mg/5ml Syrup) 10 mg ONCE ONCE PO 12/20/24 15:30 12/20/24 15:31 DC 12/20/24 15:26 Dicyclomine HCl (Bentyl 10mg/5ml Syrup) 10 mg STK-MED ONCE PO 12/20/24 15:23 12/20/24 15:26 DC Lidocaine HCl (Lidocaine HCl 2% Viscous) 10 ml ONCE ONCE PO 12/20/24 15:30 12/20/24 15:31 DC 12/20/24 15:26 Vital Signs Date Time Temp Pulse Resp B/P (MAP) Pulse Ox O2 Delivery O2 Flow Rate FiO2 12/20/24 16:13 98.8 67 18 117/72 98 Room Air* 0 21 12/20/24 15:02 98.1 68 16 136/90 96 0 HEART Score Response (Comments) Value EKG: Normal 0 Age: 45-65yrs (+1) 1 Risk Factors: 3+ risk factors (+2) 2 Initial Troponin: Normal limit (0) 0 Total 3 Medical Decision Making MDM MDM: DIFFERENTIAL DIAGNOSIS: ACS/AMI/ELECTROLYTE IMBALANCE/DEHYDRATION/ RATIONALE: TESTS CONSIDERED AND ORDERED SECONDARY TO SHARED DECISION MAKING INCLUDE: EKG/LABS PREVIOUS OUTSIDE RECORDS REVIEWED: OLD ER VISITS. RISK OF COMPLICATION AND/OR MORBIDITY OR MORTALITY OF PATIENT MANAGEMENT: NONE MEDICATIONS-PER MEDICATION RECONCILIATION NEED FOR HOSPITALIZATION: PATIENT DOES NOT MEET CRITERIA FOR HOSPITALIZATION. NO NEED FOR EMERGENCY MAJOR/MINOR SURGERY: NO THERE ARE NO SOCIAL CONCERNS WITH THIS PATIENT. PRESCRIPTION DRUG MANAGEMENT NONE PRESCRIPTIONS WILL INCLUDE SYMPTOMATIC CARE PATIENT'S PRIOR EXTERNAL MEDICAL RECORDS FROM OTHER ER VISITS WERE REVIEWED BY ME INDICATED. PRIOR TESTING AND RESULTS FROM PREVIOUS VISITS WERE REVIEWED. PRIOR TESTS WERE TAKEN INTO ACCOUNT WITH MEDICAL DECISION MAKING AND RESOURCE UTILIZATION, INDEPENDENT HISTORIAN/HISTORIANS WERE USED TO OBTAIN COMPLETE MEDICAL HISTORY. I INDEPENDENTLY INTERPRETED THE TEST THAT WERE PERFORMED, RESULTS WERE REVIEWED BY ME AND CONSIDERED FINDINGS ON RADIOLOGY IF ORDERED. MEDICAL MANAGEMENT AND EXAMINATION INTERPRETATION DISCUSSIONS WERE HAD BY ME WITH OTHER QUALIFIED HEALTHCARE PROFESSIONALS INDICATED FOR THE PATIENT'S CARE. DX & DISP Disposition: Discharge Departure Impression: Primary Impression: Stage 3 chronic kidney disease Additional Impressions: Obesity, Left hemiplegia Condition: Stable Additional Instructions: FOLLOW-UP WITH PRIMARY CARE PROVIDER IN 1 TO 2 DAYS. TAKE MEDICATIONS DIRECTED HERE IN THE EMERGENCY ROOM. OKAY TO CONTINUE HOME MEDICATIONS UNLESS OTHERWISE DISCUSSED DURING YOUR VISIT IN THE EMERGENCY ROOM TODAY. RETURN TO YOUR NEAREST EMERGENCY ROOM IF SYMPTOMS WORSEN OR IF THERE IS NO IMPROVEMENT. CALL 911 IF YOU NEED IMMEDIATE ASSISTANCE. TAKE TYLENOL OR MOTRIN [id number] NEEDED AND IF NO CONTRAINDICATIONS ARE PRESENT. INCREASE ORAL HYDRATION. A WOUND CULTURE OR URINE CULTURE WAS ORDERED HERE IN THE EMERGENCY ROOM DEPARTMENT PLEASE FOLLOW-UP WITH PRIMARY CARE PROVIDER AND ADVISE THEM TO GET REPEAT PORTS FROM OUR FACILITY. IF YOU HAD ANY JT WRAP/SPLINTS THAT WERE APPLIED HERE, PLEASE DO NOT REMOVE THEM UNTIL YOU SEE YOUR PRIMARY CARE OR SPECIALTY. SEE YOUR PRIMARY CARE DOCTOR ON Saturday WITHOUT FAIL FOR FOLLOW UP AND MANAGEMENT. Referrals: JANETT ZENDEJAS MD (PCP) Time of Disposition: 16:43 I have reviewed the case, and I agree with, Diagnosis and Plan SHANAE IBARRA PUBLICATIONS EDITOR Dec 20, 2024 15:12
[2024-12-20] MEDS: MAG/ALUM/SIMETH 30 ML UDCUP PO ONE (15:26)
[2024-12-20] MEDS: DICYCLOMINE HCL 10 MG/5 ML ML PO ONE ×2 (15:26→15:29)
[2024-12-20] MEDS: LIDOCAINE HCL 2% VISCOUS 15 ML UDCUP PO ONE (15:26)
[2024-12-20 15:27] LABS: BASOPHILS # (AUTO) 0.05 K/uL (0.00-0.20); BASOPHILS % (AUTO) 0.5 % (0.0-5.0); EOSINOPHILS # (AUTO) 0.16 K/uL (0.00-0.70); EOSINOPHILS % (AUTO) 1.6 % (0.0-8.0); HEMATOCRIT 40.6 % (42-54); IMMATURE GRANULOCYTE ABSOLUTE 0.04 K/uL (0-1); LYMPHOCYTES # (AUTO) 2.9 K/uL (1.0-4.8); LYMPHOCYTES % (AUTO) 28.4 % (21.0-51.0); MEAN CORPUSCULAR HEMOGLOBIN 31.6 pg (27.0-33.0); MEAN CORPUSCULAR HGB CONC 33.5 g/dL (32.0-36.0); MEAN CORPUSCULAR VOLUME 94.4 fL (79-99); MONOCYTES # (AUTO) 1.1 K/uL (0.1-1.0); NEUTROPHILS # (AUTO) 5.9 K/uL (1.8-7.7); NEUTROPHILS % (AUTO) 58.1 % (40.0-77.0); PLATELET COUNT (AUTO) 198 K/uL (130-400); WHITE BLOOD COUNT (AUTO) 10.2 K/uL (4.8-10.8)
[2024-12-20] MEDS: MAG/ALUM/SIMETH 30 ML UDCUP ONE (15:29)
[2024-12-20 15:41] LABS: CREATININE 1.7 mg/dL (0.5-1.3); POTASSIUM 3.9 mmol/L (3.5-5.1)
[2024-12-20 15:44] LABS: B-TYPE NATRIURETIC PEPTIDE 25 pg/mL (0-100)
[2024-12-20 15:47] LABS: ADD UA MICROSCOPIC NO; APPEARANCE,URINE CLEAR (CLEAR); BILIRUBIN,URINE NEGATIVE (NEGATIVE); COLOR,URINE LIGHT-YELLOW (YELLOW); GLUCOSE, URINE (UA) NEGATIVE (NEGATIVE); KETONES,URINE NEGATIVE (NEGATIVE); LEUKOCYTE ESTERASE ,URINE NEGATIVE Leu/uL (NEGATIVE); NITRATE,URINE NEGATIVE (NEGATIVE); OCCULT BLOOD,URINE NEGATIVE (NEGATIVE); PH,URINE 5.5 (5.0-8.0); PROTEIN,URINE NEGATIVE (NEGATIVE); UROBILINOGEN,URINE 0.2 mg/dL (0.2-1.0)
--- NOTE | 2024-12-20 16:18 | HMCIMG ---
INDICATION: CHEST PAIN TECHNIQUE: CHEST 1VW COMPARISON: 12/15/2024 FINDINGS AND IMPRESSION: Prominent bilateral interstitial markings which may represent bronchitis or vascular congestion in the proper clinical setting. Borderline cardiomegaly with left-sided AICD. Mild degenerative changes of the spine. The visualized upper abdomen appears unremarkable.
[2024-12-20] MEDS ORDERED: HYDR100C2 PO (17:02)
[2024-12-20 17:24] VITALS: BP 113/54; PULSE 64; RESP 18; TEMP 98.3; O2SAT 95
--- NOTE | 2024-12-21 09:22 | EKG ---
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
== END 2024-12-20 17:37 | disposition home or self-care (01) ==
LOC: EDH 15:00
DX: I12.9 Hypertensive chronic kidney disease with stage 1 through stage 4 chronic kidney disease, or unspecified chronic kidney disease (principal); E11.22 Type 2 diabetes mellitus with diabetic chronic kidney disease; N18.30 Chronic kidney disease, stage 3 unspecified; E66.9 Obesity, unspecified; I25.10 Atherosclerotic heart disease of native coronary artery without angina pectoris; Z79.02 Long term (current) use of antithrombotics/antiplatelets; Z79.82 Long term (current) use of aspirin; Z79.84 Long term (current) use of oral hypoglycemic drugs; Z79.899 Other long term (current) drug therapy; Z86.73 Personal history of transient ischemic attack (TIA), and cerebral infarction without residual deficits; Z88.6 Allergy status to analgesic agent; Z95.810 Presence of automatic (implantable) cardiac defibrillator
CPT/HCPCS: 36415; 71045; 80048; 81003; 83880; 84484; 85025; 93005; 99284; 99285

== ENCOUNTER 2025-01-04 11:41 | Observation (INO) | payer MEDICAID ==
[~2025-01-04] VITALS: Ht 182.9 cm; Wt 152.2 kg
[~2025-01-04 11:41] MED LIST changes: -AMIO200T68 PO; +AMIO200T73 PO; +HYDR100C2 PO
--- NOTE | 2025-01-04 12:14 | EKG ---
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
[2025-01-04 12:38] LABS: BASOPHILS # (AUTO) 0.04 K/uL (0.00-0.20); BASOPHILS % (AUTO) 0.5 % (0.0-5.0); EOSINOPHILS % (AUTO) 2.4 % (0.0-8.0); HEMATOCRIT 39.8 % (42-54); IMMATURE GRANULOCYTE ABSOLUTE 0.02 K/uL (0-1); LYMPHOCYTES % (AUTO) 23.6 % (21.0-51.0); MEAN CORPUSCULAR HEMOGLOBIN 31.7 pg (27.0-33.0); MEAN CORPUSCULAR HGB CONC 33.9 g/dL (32.0-36.0); MEAN CORPUSCULAR VOLUME 93.4 fL (79-99); MONOCYTES # (AUTO) 0.8 K/uL (0.1-1.0); MONOCYTES % (AUTO) 9.2 % (3.0-13.0); NEUTROPHILS # (AUTO) 5.3 K/uL (1.8-7.7); NEUTROPHILS % (AUTO) 64.1 % (40.0-77.0); PLATELET COUNT (AUTO) 209 K/uL (130-400); RED BLOOD CELL COUNT(AUTO) 4.26 MIL/uL (4.50-6.20); RED CELL DISTRIBUTION WIDTH 14.1 % (11.0-15.5); WHITE BLOOD COUNT (AUTO) 8.3 K/uL (4.8-10.8)
[2025-01-04 12:45] LABS: CREATININE 1.5 mg/dL (0.5-1.3)
--- NOTE | 2025-01-04 13:26 | HMCIMG ---
CHEST 1VW HISTORY: Chest pressure COMPARISON: 12/20/2024 FINDINGS: A frontal projection of the chest was obtained. Mild bilateral pulmonary infiltrates are seen may be related to mild pulmonary vascular congestion with possible superimposed pneumonitis. The heart is borderline enlarged. All the lines and tubes are again seen in place. No evidence of aortic calcification is seen. IMPRESSION: 1. Mild bilateral pulmonary infiltrates are seen may be related to mild pulmonary vascular congestion with possible superimposed pneumonitis.
[2025-01-04 13:34] LABS: APPEARANCE,URINE CLEAR (CLEAR); BILIRUBIN,URINE NEGATIVE (NEGATIVE); COLOR,URINE COLORLESS (YELLOW); GLUCOSE, URINE (UA) NEGATIVE (NEGATIVE); KETONES,URINE NEGATIVE (NEGATIVE); LEUKOCYTE ESTERASE ,URINE NEGATIVE Leu/uL (NEGATIVE); NITRATE,URINE NEGATIVE (NEGATIVE); OCCULT BLOOD,URINE NEGATIVE (NEGATIVE); PH,URINE 5.5 (5.0-8.0); PROTEIN,URINE NEGATIVE (NEGATIVE); UROBILINOGEN,URINE 0.2 mg/dL (0.2-1.0)
[2025-01-04 13:35] LABS: ADD UA MICROSCOPIC NO
--- NOTE | 2025-01-04 14:07 | ERN ---
General Chief Complaint: Shortness of Breath Stated Complaint: CHEST TIGHTNESS,SOB, DIZZINESS 40 MIN AGO Time Seen by MD: 11:41 Source: patient History of Present Illness Initial Comments PATIENT IS A 59-YEAR-OLD MALE COMING IN TO BE EVALUATED FOR LEFT-SIDED CHEST PRESSURE. PATIENT STATES THAT THE CHEST PRESSURE BEGAN EARLIER IN THE DAY. HE ALSO STATES THAT HE DOES HAS A PACEMAKER IN PLACE. NO FEVER OR CHILLS. Allergies: Coded Allergies: ibuprofen (Unverified Allergy, Mild, BLOATING, 04/16/24) INDIGESTION/ACID REFLUX Home Meds Active Scripts Hydroxyzine Pamoate (Hydroxyzine Pamoate) 100 Mg Capsule, 100 MG PO Q8 PRN for ANXIETY /INSOMNIA, #30 CAP Prov:SHANAE IBARRA NP 12/20/24 Benzonatate (Tessalon Perles) 100 Mg Cap, 200 MG PO TID for cough, #30 CAP 0 Refills Prov:SHANAE IBARRA NP 12/15/24 Albuterol Sulfate (Ventolin Hfa/Proventil Hfa/Proair Hfa) 90 Mcg Puff, 2 PUFF IH Q4H for WHEEZING, #1 INHALER 0 Refills Prov:SHANAE IBARRA NP 12/15/24 Azithromycin (Zithromax Tri-Felipe) 500 Mg Tablet, 500 MG PO DAILY for 7 Days, #7 TAB Prov:SHANAE IBARRA NP 12/15/24 Trazodone HCl (Trazodone HCl) 50 Mg Tablet, 1 TAB PO HS for 30 Days, #30 TAB 1 Refill Prov:GONSALO HASSAN MD 11/26/24 Reported Medications Amiodarone HCl (Amiodarone HCl) 200 Mg Tablet, 200 MG PO BID, TAB 09/04/24 Atorvastatin Calcium (LIPITOR) 40 Mg Tablet, 40 MG PO DAILY, TAB 09/04/24 Buspirone HCl (Buspirone HCl) 10 Mg Tablet, 10 MG PO BID, TAB 09/04/24 Eplerenone (Eplerenone) 25 Mg Tablet, 25 MG PO DAILY, TAB 09/04/24 Aspirin (ASPIRIN 81MG CHEW TAB) 81 Mg Tab.chew, 81 MG PO DAILY, TAB.CHEW 09/04/24 Furosemide (Furosemide) 20 Mg Tablet, 20 MG PO DAILY, TAB 09/04/24 Empagliflozin (Jardiance) 10 Mg Tablet, 10 MG PO DAILY, TAB 09/04/24 Amlodipine Besylate (Amlodipine Besylate) 10 Mg Tablet, 10 MG PO DAILY for 30 Days, #30 TAB 0 Refills 09/04/24 Clopidogrel Bisulfate (Clopidogrel) 75 Mg Tablet, 75 MG PO DAILY, TAB 09/04/24 Metoprolol Succinate (Metoprolol Succinate) 50 Mg Tab.er.24h, 50 MG PO DAILY, TAB 09/04/24 Past Medical History Past Medical History: CAD, CVA, Diabetes-Type II, Heart Disease, Hypertension, MD, Stroke Medical History Other: LEFT SIDE WEAKNESS S/P STROKE Past Surgical History: Pacer/AICD Surgical History Other: LEFT LEG STENT, DEFIBRILATOR Family History Family History: Negative Social History Social History: Lives with family ROS Dictation CONSTITUTIONAL: NO CHILLS, NO FEVER, NO WEAKNESS, NO DIAPHORESIS, NO MALAISE. HEAD/FACE: NO SIGNS OF TRAUMA. EENT: NO EYE PAIN, NO BLURRED VISION, NO TEARING, NO DOUBLE VISION, NO EAR PAIN, NO EAR DISCHARGE, NO NOSE PAIN, NO NASAL CONGESTION, NO THROAT PAIN, NO THROAT SWELLING, NO MOUTH PAIN. RESPIRATORY: NO COUGH, NO ORTHOPNEA, SOB, NO STRIDOR, NO WHEEZING. CARDIOVASCULAR: CHEST PAIN, NO EDEMA, NO PALPITATIONS, NO SYNCOPE. GASTROINTESTINAL/ABDOMINAL: NO ABDOMINAL PAIN, NO CONSTIPATION, NO DIARRHEA, NO NAUSEA, NO VOMITING. GENITOURINARY: NO ABNORMAL DISCHARGE, NO DYSURIA, NO FREQUENT URINATION, NO HEMATURIA. NO COMPLAINTS OF PAIN IN THE GENITALS. MUSCULOSKELETAL: NO BACK PAIN, NO GOUT, NO JOINT PAIN, NO JOINT SWELLING, NO MUSCLE PAIN, NO MUSCLE STIFFNESS, NO NECK PAIN. INTEGUMENTARY: NO CHANGE IN COLOR, NO CHANGE IN HAIR/NAILS, NO DRYNESS, NO LESION, NO LUMPS, NO RASH. NEUROLOGICAL/PSYCH: NO ANXIETY, NOT DEPRESSED, NO EMOTIONAL PROBLEM, NO HEADACHE, NO NUMBNESS, NO PRE-EXISTING DEFICIT, NO HISTORY OF SEIZURES, NO TREMORS, NO WEAKNESS. HEMATOLOGIC/LYMPHATIC: NOT ANEMIC, NO HISTORY OF BLOOD CLOTS, NO APPARENT BLEEDING, NO BRUISING, GLANDS NOT SWOLLEN. ALL SYSTEMS NEGATIVE, EXCEPT NOTED. Physical Exam Physical Exam Dictation VITAL SIGNS: REVIEWED. GENERAL APPEARANCE: ALERT, ORIENTED X3, NO ACUTE DISTRESS, OBESE. HEAD AND FACE: NON-TRAUMATIC. EYES: PERRL, PINK CONJUNCTIVAS, EYELID NO TRAUMA, ANTERIOR CHAMBER CLEAR. EARS: PINNAS INTACT AND NO SIGNS OF TRAUMA OR ERYTHEMA. EAR CANALS CLEAR AND N O DISCHARGE. TMS NO ERYTHEMA. NOSE: NO DISCHARGE, NO BLEEDING. OROPHARYNX: MOUTH NORMAL, TEETH NO CARIES, TONGUE PINK. PHARYNX CLEAR, NO ERYTHEMA. TONSILS NO EXUDATES, NO ABSCESSES NOTED. MUCOUS MEMBRANE MOIST. NECK: SUPPLE, NON-TENDER, NO THYROMEGALY, NO MASSES, NO JVD, NO BRUITS. BREAST: DEFERRED. CHEST: NO TENDERNESS, NO CREPITUS, NO PARADOXICAL MOVEMENT, NO RETRACTIONS. LUNGS: CLEAR, WELL-VENTILATED, SYMMETRIC, NO RALES, NO WHEEZING, NO RHONCHI, NO STRIDOR, GOOD BREATH SOUNDS BILATERALLY. HEART: REGULAR RATE, REGULAR RHYTHM, NO MURMUR, NO GALLOPS. VASCULAR: NO PERIPHERAL EDEMA. ABDOMEN: SOFT, POSITIVE BOWEL SOUNDS, NONDISTENDED, NO GUARDING, NONTENDER, NO REBOUND, NO MASSES NO HEPATOMEGALY, NO SPLENOMEGALY, NO COLEMAN'S SIGN, NO HERNIAS. RECTAL: DEFERRED. GENITAL: DEFERRED. NEUROLOGICAL: NORMAL SPEECH, GROSS MOTOR FUNCTION INTACT, GROSS SENSORY FUNCTION INTACT. MUSCULOSKELETAL: NECK NONTENDER, FULL RANGE OF MOTION, BACK NONTENDER, FULL RANGE OF MOTION. EXTREMITIES: NONTENDER, FULL RANGE OF MOTION. SKIN: COLOR PINK, DRY, NO TURGOR, NO RASH, NO LACERATIONS, NO ABRASIONS, NO CONTUSIONS. LYMPHATICS: DEFERRED. Results Laboratory and Microbiology Lab and Micro Result Laboratory Tests Test 01/04/25 12:28 01/04/25 13:16 01/04/25 14:08 White Blood Count 8.3 K/uL (4.8-10.8) Red Blood Count 4.26 MIL/uL (4.50-6.20) L Hemoglobin 13.5 g/dL (14.0-18.0) L Hematocrit 39.8 % (42-54) L Mean Corpuscular Volume 93.4 fL (79-99) Mean Corpuscular Hemoglobin 31.7 pg (27.0-33.0) Mean Corpuscular Hemoglobin Concent 33.9 g/dL (32.0-36.0) Red Cell Distribution Width 14.1 % (11.0-15.5) Platelet Count 209 K/uL (130-400) Mean Platelet Volume 9.7 fL (7.5-10.5) Immature Granulocyte % (Auto) 0.2 % (0-1) Neutrophils (%) (Auto) 64.1 % (40.0-77.0) Lymphocytes (%) (Auto) 23.6 % (21.0-51.0) Monocytes (%) (Auto) 9.2 % (3.0-13.0) Eosinophils (%) (Auto) 2.4 % (0.0-8.0) Basophils (%) (Auto) 0.5 % (0.0-5.0) Neutrophils # (Auto) 5.3 K/uL (1.8-7.7) Lymphocytes # (Auto) 2.0 K/uL (1.0-4.8) Monocytes # (Auto) 0.8 K/uL (0.1-1.0) Eosinophils # (Auto) 0.20 K/uL (0.00-0.70) Basophils # (Auto) 0.04 K/uL (0.00-0.20) Absolute Immature Granulocyte (auto 0.02 K/uL (0-1) Nucleated Red Blood Cells 0.0 % (0.0-0.19) Sodium Level 140 mmol/L (136-145) Potassium Level 4.0 mmol/L (3.5-5.1) Chloride Level 104 mmol/L (101-111) Carbon Dioxide Level 28 mmol/L (21-32) Blood Urea Nitrogen 21 mg/dL (7-18) H Creatinine 1.5 mg/dL (0.5-1.3) H Glomerular Filtration Rate Calc 53 mL/min (>90) Random Glucose 118 mg/dL (70-105) H Total Calcium 9.4 mg/dL (8.5-10.1) Troponin I High Sensitivity 33 ng/L (4-75) 142 ng/L (4-75) *H HZ-Lny-P-Type Natriuretic Peptide 168 pg/mL (0-125) H Urine Color COLORLESS (YELLOW) Urine Appearance CLEAR (CLEAR) Urine pH 5.5 (5.0-8.0) Urine Specific [place] 1.010 (1.001-1.031) Urine Protein NEGATIVE mg/dL (NEGATIVE) Urine Glucose (UA) NEGATIVE mg/dL (NEGATIVE) Urine Ketones NEGATIVE mg/dL (NEGATIVE) Urine Occult Blood NEGATIVE (NEGATIVE) Urine Nitrate NEGATIVE (NEGATIVE) Urine Bilirubin NEGATIVE mg/dL (NEGATIVE) Urine Urobilinogen 0.2 mg/dL (0.2-1.0) Urine Leukocyte Esterase NEGATIVE Felicitas/uL Labs Reviewed?: Yes EKG/XRAY/US/CT/MRI EKG Comment 01/04/2025 TIME 12:10 P.M[address] [place] [address] WAVE ELEVATION OR X-RAY Comment IMAGING REPORT Signed PATIENT: RAFAEL AYALA MR#: [id number] : 1965 SEX: M AGE: 59 LOCATION: EDH ORDER 1200 STATUS: [facility] ER REPORT#: [id number] SERVICE 1159 REASON: chest pressure ORDERING PHYSICIAN: CHLOE PROCTOR MD PROCEDURE: CXR1VW - CHEST 1VW CHEST 1VW HISTORY: Chest pressure COMPARISON: 12/20/2024 FINDINGS: A frontal projection of the chest was obtained. Mild bilateral pulmonary infiltrates are seen may be related to mild pulmonary vascular congestion with possible superimposed pneumonitis. The heart is borderline enlarged. All the lines and tubes are again seen in place. No evidence of aortic calcification is seen. IMPRESSION: 1. Mild bilateral pulmonary infiltrates are seen may be related to mild pulmonary vascular congestion with possible superimposed pneumonitis. DICTATED BY: HAIDER BULLARD MD DATE: 01/04/25 1323 ELECTRONICALLY SIGNED BY: HAIDER BULLARD MD DATE: 01/04/25 1326 [facility] MDM: DIFFERENTIAL DIAGNOSIS: ACS, NSTEMI, CHEST PRESSURE, SHORTNESS OF BREATH, RATIONALE: TESTS CONSIDERED AND ORDERED SECONDARY TO SHARED DECISION MAKING INCLUDE: LABS, ECG AND RADIOLOGY PREVIOUS OUTSIDE RECORDS REVIEWED: OLD ER VISITS. RISK OF COMPLICATION AND/OR MORBIDITY OR MORTALITY OF PATIENT MANAGEMENT: NONE MEDICATIONS-PER MEDICATION RECONCILIATION NEED FOR HOSPITALIZATION: PATIENT DOES MEET CRITERIA FOR HOSPITALIZATION. NEED FOR EMERGENCY MAJOR/MINOR SURGERY: NO THERE ARE NO SOCIAL CONCERNS WITH THIS PATIENT. PRESCRIPTION DRUG MANAGEMENT PRESCRIPTIONS WILL INCLUDE SYMPTOMATIC CARE PATIENT'S PRIOR EXTERNAL MEDICAL RECORDS FROM OTHER ER VISITS WERE REVIEWED BY ME INDICATED. PRIOR TESTING AND RESULTS FROM PREVIOUS VISITS WERE REVIEWED. PRIOR TESTS WERE TAKEN INTO ACCOUNT WITH MEDICAL DECISION MAKING AND RESOURCE UTILIZATION, INDEPENDENT HISTORIAN/HISTORIANS WERE USED TO OBTAIN COMPLETE MEDICAL HISTORY. I INDEPENDENTLY INTERPRETED THE TEST THAT WERE PERFORMED, RESULTS WERE REVIEWED BY ME AND CONSIDERED FINDINGS ON RADIOLOGY IF ORDERED. MEDICAL MANAGEMENT AND EXAMINATION INTERPRETATION DISCUSSIONS WERE HAD BY ME WITH OTHER QUALIFIED HEALTHCARE PROFESSIONALS INDICATED FOR THE PATIENT'S CARE. PATIENT WILL BE ADMITTED UNDER THE CARE OF HOSPITALIST GROUP FOR ONGOING MANAGEMENT OF ACS. ED Course Orders Procedure Category Date Status Time Cbc With Differential LAB 01/04/25 Complete 11:59 Chest 1vw RAD 01/04/25 Resulted 11:59 12 Lead Ekg Tracing- EKG 01/04/25 Complete Technical 11:59 Troponin I High LAB 01/04/25 Complete Sensitivity 11:59 Urinalysis Profile LAB 01/04/25 Complete 11:59 Basic Metabolic Panel LAB 01/04/25 Complete 11:59 Probnp LAB 01/04/25 Complete 12:28 Troponin I High LAB 01/04/25 Complete Sensitivity 13:52 Vital Signs Date Time Temp Pulse Resp B/P (MAP) Pulse Ox O2 Delivery O2 Flow Rate FiO2 01/04/25 14:13 98.1 74 20 127/76 97 Room Air* 0 21 01/04/25 12:23 98.1 73 20 138/76 96 Room Air* 0 21 01/04/25 11:43 98.1 88 18 196/103 97 Room Air 0 DX & DISP Disposition: Inpatient Decision to Admit Time: 14:58 Departure Impression: Primary Impression: ACS (acute coronary syndrome) Additional Impression: Cardiac defibrillator in place Condition: Stable Referrals: JANETT ZENDEJAS MD (PCP) CHLOE PROCTOR MD Jan 04, 2025 14:07
[2025-01-04] MEDS ORDERED: ondanSETRON 4MG INJ IVP PRN (15:30)
[2025-01-04] MEDS ORDERED: acetaMINOPHEN 325 MG TAB PO PRN (15:30)
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
[2025-01-04] MEDS ORDERED: hydrALAZine 20MG/ML VIAL IV PRN (16:00)
[2025-01-04] MEDS ORDERED: IpraTROPium 0.5 MG/2.5 ML INH IH PRN (16:00)
--- NOTE | 2025-01-04 16:00 | HMCIMG ---
CT HEAD/BRAIN W/O CONTRAST HISTORY: Headaches COMPARISON: None TECHNIQUE: Multiple sequential axial images of the head were obtained from the base of the skull through vertex. Patient was not given contrast through intravenous route. FINDINGS: The ventricles and extraventricular CSF spaces are nondilated for patient's age. There is no midline shift, mass effect or herniation. No acute intracranial bleed is seen. Visualized portion of the paranasal sinuses are grossly within normal limits. IMPRESSION: 1. No acute intracranial bleed is seen. CT was performed with one or more following dose reduction techniques: automated exposure control, adjustment of the mA and kv according to patient's size, or use of a iterative reconstruction technique.
[2025-01-04 16:04] VITALS: PULSE 67; RESP 20; O2SAT 98
[2025-01-04 16:10] VITALS: PULSE 67; RESP 20; O2SAT 98
[2025-01-04 16:19] LABS: PROTHROMBIN TIME 10.6 SEC (9.6-11.6)
[2025-01-04 16:20] LABS: PARTIAL THROMBOPLASTIN TIME 24.8 SEC (26.3-35.5)
--- NOTE | 2025-01-04 16:20 | NUR ---
DCP: HOME Pt currently lives with his provider Marni Marte [phone]. Provider is with [facility] Owusu for 30hrs a week and she assists him with all ADLs and bathing. Pt uses a wheelchair at home to ambulate. PCP is Alexx Briscoe and uses [facility] for any RX needs. At [place] pt will want to go home and provider can assist with transportation. Addendum: 01/04/25 at 1625 by HUGH STOCK SS Amended: Links added.
--- NOTE | 2025-01-04 16:27 | HMCIMG ---
US VENOUS DOPPLER BILATERAL HISTORY: Leg swelling COMPARISON: None TECHNIQUE: Bilateral lower extremity venous Doppler ultrasound study was performed. FINDINGS: The common femoral, femoral, popliteal, and posterior tibial veins are visualized. Normal flow with augmentation and compressibilities are demonstrated. The greater saphenous veins are also seen and grossly patent. IMPRESSION: 1. No evidence of deep venous thrombosis is seen.
[2025-01-04 16:42] LABS: ALBUMIN 3.6 g/dL (3.5-5.0); BILIRUBIN,DIRECT 0.1 mg/dL (0.0-0.3); BILIRUBIN,TOTAL 0.5 mg/dL (0.2-1.0); MAGNESIUM 1.9 mg/dL (1.80-2.40); TOTAL PROTEIN, SERUM 7.9 g/dL (6.0-8.3)
[2025-01-04] MEDS ORDERED: PoTASSium chloRIDE 10MEQ/100ML 100 ML IV PRN (17:00)
[2025-01-04] MEDS ORDERED: PoTASSium chloRIDE 20MEQ ER 20 MEQ ERTAB PO PRN (17:00)
[2025-01-04] MEDS ORDERED: PoTASSium chl 10% ELIXIR 20MEQ 20 MEQ/15 ML UDCUP PO PRN (17:00)
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
[2025-01-04 19:34] VITALS: BP 120/88; PULSE 85; RESP 20; TEMP 98.7
[2025-01-04 20:00] VITALS: BP 143/61; PULSE 61; RESP 18; TEMP 98.4; O2SAT 96
[2025-01-04 20:18] LABS: CREATINE KINASE, TOTAL 194 U/L (21-232)
[2025-01-04] MEDS ORDERED: FLUT30CR NS (20:39)
[2025-01-04] MEDS ORDERED: LISI40TA15 PO (20:39)
[2025-01-04] MEDS ORDERED: HYDR25TA67 PO (20:39)
[2025-01-04] MEDS ORDERED: LATA2.5D14 OU (20:40)
[2025-01-04] MEDS ORDERED: CLON1PAT14 TP (20:42)
--- NOTE | 2025-01-04 21:12 | NUR ---
paged [facility] to report troponin elevation of 254. as per answering service, dr. fuller is diamond sizer and sorter. pending call back. Also paged [employer] answering service to notify of consult. pending call back.
--- NOTE | 2025-01-04 21:12 | NUR ---
sy hospitalist operations and intelligence assistant due to patient is asking to take his home medication buspirone 10mg tonight. Patient states he takes buspirone 10mg bid. Spoke to michael suarez. stated herbert to start on buspirone 10mg bid.
[2025-01-04] MEDS: atorVAStatin 40 MG TABLET PO SCH (21:28)
[2025-01-04] MEDS: busPIRone HCL 5 MG TABLET PO SCH (21:28)
[2025-01-04] MEDS: AMIOdarone 200 MG TABLET PO SCH (21:28)
[2025-01-04 22:22] VITALS: PULSE 61; RESP 20; O2SAT 97
--- NOTE | 2025-01-04 23:16 | NUR ---
@2220PM RECEIVED CALL BACK FROM DR. GERMAN. REPORT TROPONIN LEVEL OF 254. PATIENT IS CHEST PAIN FREE. STATED NO NEW ORDERS.
[2025-01-05] VITALS (12 sets, daily range): BP systolic 88–122; BP diastolic 49–66; PULSE 51–62; RESP 18–20; TEMP 97.9–98.7; O2SAT 98
[2025-01-05 03:45] LABS: HEMATOCRIT 34.7 % (42-54); MEAN CORPUSCULAR HEMOGLOBIN 31.8 pg (27.0-33.0); MEAN CORPUSCULAR HGB CONC 34.6 g/dL (32.0-36.0); RED BLOOD CELL COUNT(AUTO) 3.77 MIL/uL (4.50-6.20); RED CELL DISTRIBUTION WIDTH 14.3 % (11.0-15.5); WHITE BLOOD COUNT (AUTO) 6.3 K/uL (4.8-10.8)
[2025-01-05 04:07] LABS: CREATININE 1.5 mg/dL (0.5-1.3); MAGNESIUM 1.8 mg/dL (1.80-2.40); POTASSIUM 3.9 mmol/L (3.5-5.1)
[2025-01-05] MEDS: MAGNESIUM 2GM PREMIX 50ML 50 ML IV SCH (04:24)
--- NOTE | 2025-01-05 05:32 | NUR ---
Reported blood pressure 89/49 to lucy. suarez product communications manager. MAP at 63. Patient verbalized having dizziness. Denied of any chest pain. Patient concerned stating that his blood pressure is never this low. spoke to Kimberly suarez. ordered midodrine 10mg po x1, albumin 25% 100ml iv x1.
[2025-01-05] MEDS: ALBUMIN HUMAN 25% 100 ML IV SCH (06:03)
[2025-01-05] MEDS: miDODRine HCL 5 MG TABLET PO ONE (06:10)
--- NOTE | 2025-01-05 06:14 | PN ---
PROGRESS NOTE PROBLEM LIST: Hypertensive urgency Elevated troponin Chest pain Dyslipidemia NSTEMI in 10/2020 Monomorphic ventricular tachycardia inducible at EP study s/p Visia PCD implant in 10/2020 Normal coronary arteries with LVEF of 60% via LHC in 10/2020 Right pontine ischemic CVA in 2022 Severe obstructive sleep apnea CKD stage IIIB Chronic venous insufficiency May-Thurner syndrome S/p venogram on 08/21/2024 s/p stent positioned over the left common iliac, left external iliac, and left common femoral vein 2D echo on 07/20/2024 with an EF of 65-70%, positive bubble study, moderate LVH, moderate TR, and RVSP of 51.7 mmHg History of a patent foramen ovale with positive bubble study in 07/2019 Normal Lexiscan stress test on 11/21/2024 INTERIM HISTORY OF PRESENT ILLNESS: Patient states he feels much improved this morning and blood pressures have stabilized and with the initiation are resumption of his home medications his blood pressure has been very well controlled and even borderline low this morning. Telemetry is unremarkable. Patient states he has been compliant with medical therapy at home. REVIEW OF SYSTEMS: No fever, headache, chest pain, abdominal pain, nausea, vomiting, or diarrhea. VITAL SIGNS Vital Signs Date Time Temp Pulse Resp B/P (MAP) Pulse Ox O2 Delivery O2 Flow Rate FiO2 01/05/25 05:10 89/49 01/05/25 01:20 N/A Room Air 01/05/25 00:00 98.4 56 20 01/04/25 22:22 21 01/04/25 20:00 96 0 Laboratory Tests 01/04/25 12:28 01/05/25 03:11 LABS/MEDS Laboratory Tests Test 01/04/25 12:28 01/04/25 13:16 01/04/25 14:08 01/04/25 19:55 White Blood Count 8.3 K/uL (4.8-10.8) Red Blood Count 4.26 MIL/uL (4.50-6.20) L Hemoglobin 13.5 g/dL (14.0-18.0) L Hematocrit 39.8 % (42-54) L Mean Corpuscular Volume 93.4 fL (79-99) Mean Corpuscular Hemoglobin 31.7 pg (27.0-33.0) Mean Corpuscular Hemoglobin Concent 33.9 g/dL (32.0-36.0) Red Cell Distribution Width 14.1 % (11.0-15.5) Platelet Count 209 K/uL (130-400) Mean Platelet Volume 9.7 fL (7.5-10.5) Immature Granulocyte % (Auto) 0.2 % (0-1) Neutrophils (%) (Auto) 64.1 % (40.0-77.0) Lymphocytes (%) (Auto) 23.6 % (21.0-51.0) Monocytes (%) (Auto) 9.2 % (3.0-13.0) Eosinophils (%) (Auto) 2.4 % (0.0-8.0) Basophils (%) (Auto) 0.5 % (0.0-5.0) Neutrophils # (Auto) 5.3 K/uL (1.8-7.7) Lymphocytes # (Auto) 2.0 K/uL (1.0-4.8) Monocytes # (Auto) 0.8 K/uL (0.1-1.0) Eosinophils # (Auto) 0.20 K/uL (0.00-0.70) Basophils # (Auto) 0.04 K/uL (0.00-0.20) Absolute Immature Granulocyte (auto 0.02 K/uL (0-1) Nucleated Red Blood Cells 0.0 % (0.0-0.19) Prothrombin Time 10.6 SEC (9.6-11.6) Prothromb Time International Ratio 1.00 (0.85-1.15) Activated Partial Thromboplast Time 24.8 SEC (26.3-35.5) L Sodium Level 140 mmol/L (136-145) Potassium Level 4.0 mmol/L (3.5-5.1) Chloride Level 104 mmol/L (101-111) Carbon Dioxide Level 28 mmol/L (21-32) Blood Urea Nitrogen 21 mg/dL (7-18) H Creatinine 1.5 mg/dL (0.5-1.3) H Glomerular Filtration Rate Calc 53 mL/min (>90) Random Glucose 118 mg/dL (70-105) H Total Calcium 9.4 mg/dL (8.5-10.1) Magnesium Level 1.90 mg/dL (1.80-2.40) Total Bilirubin 0.5 mg/dL (0.2-1.0) Direct Bilirubin 0.1 mg/dL (0.0-0.3) Aspartate Amino Transf (AST/SGOT) 32 U/L (10-37) Alanine Aminotransferase (ALT/SGPT) 75 U/L (12-78) Alkaline Phosphatase 133 U/L (50-136) Troponin I High Sensitivity 33 ng/L (4-75) 142 ng/L (4-75) *H 254 ng/L (4-75) *H UV-[id number]-Type Natriuretic Peptide 168 pg/mL (0-125) H Total Protein 7.9 g/dL (6.0-8.3) Albumin 3.6 g/dL (3.5-5.0) Thyroid Stimulating Hormone (TSH) 1.69 uIU/mL (0.36-3.74) Urine Color COLORLESS (YELLOW) Urine Appearance CLEAR (CLEAR) Urine pH 5.5 (5.0-8.0) Urine Specific [place] 1.010 (1.001-1.031) Urine Protein NEGATIVE mg/dL (NEGATIVE) Urine Glucose (UA) NEGATIVE mg/dL (NEGATIVE) Urine Ketones NEGATIVE mg/dL (NEGATIVE) Urine Occult Blood NEGATIVE (NEGATIVE) Urine Nitrate NEGATIVE (NEGATIVE) Urine Bilirubin NEGATIVE mg/dL (NEGATIVE) Urine Urobilinogen 0.2 mg/dL (0.2-1.0) Urine Leukocyte Esterase NEGATIVE [place]/uL Total Creatine Kinase 194 U/L (21-232) Test 01/05/25 03:11 White Blood Count 6.3 K/uL (4.8-10.8) Red Blood Count 3.77 MIL/uL (4.50-6.20) L Hemoglobin 12.0 g/dL (14.0-18.0) L Hematocrit 34.7 % (42-54) L Mean Corpuscular Volume 92.0 fL (79-99) Mean Corpuscular Hemoglobin 31.8 pg (27.0-33.0) Mean Corpuscular Hemoglobin Concent 34.6 g/dL (32.0-36.0) Red Cell Distribution Width 14.3 % (11.0-15.5) Platelet Count 185 K/uL (130-400) Mean Platelet Volume 10.1 fL (7.5-10.5) Nucleated Red Blood Cells 0.0 % (0.0-0.19) Sodium Level 139 mmol/L (136-145) Potassium Level 3.9 mmol/L (3.5-5.1) Chloride Level 106 mmol/L (101-111) Carbon Dioxide Level 27 mmol/L (21-32) Blood Urea Nitrogen 20 mg/dL (7-18) H Creatinine 1.5 mg/dL (0.5-1.3) H Glomerular Filtration Rate Calc 53 mL/min (>90) Random Glucose 88 mg/dL (70-105) Total Calcium 8.8 mg/dL (8.5-10.1) Magnesium Level 1.80 mg/dL (1.80-2.40) Current Medications Acetaminophen 650 mg Q6H PRN PO; Start 01/04/25 at 15:30; Stop 02/03/25 at 15:29 Ondansetron HCl 4 mg Q6H PRN IVP; Start 01/04/25 at 15:30; Stop 02/03/25 at 15:29 Ipratropium [place] 0.5 MG Q6H PRN IH; Start 01/04/25 at 16:00; Stop 02/03/25 at 15:59 Famotidine 20 mg DAILY PO; Start 01/05/25 at 09:00; Stop 02/04/25 at 08:59 Enoxaparin Sodium 40 mg DAILY SQ; Start 01/05/25 at 09:00; Stop 02/04/25 at 08:59 Amiodarone HCl 200 mg BID PO Last administered on 01/04/25at 21:28; Start 01/04/25 at 21:00; Stop 02/03/25 at 20:59 Amlodipine Besylate 10 mg DAILY PO; Start 01/05/25 at 09:00; Stop 02/04/25 at 08:59 Metoprolol Succinate 50 mg DAILY PO; Start 01/05/25 at 09:00; Stop 02/04/25 at 08:59 Lisinopril 40 mg DAILY PO; Start 01/05/25 at 09:00; Stop 02/04/25 at 08:59 Furosemide 20 mg DAILY PO; Start 01/05/25 at 09:00; Stop 02/04/25 at 08:59 Hydralazine HCl 10 mg Q6H PRN IV; Start 01/04/25 at 16:00; Stop 02/03/25 at 15:59 Aspirin 81 mg DAILY PO; Start 01/05/25 at 09:00; Stop 02/04/25 at 08:59 Potassium Chloride 100 ml @ 100 mls/hr AD PRN IV; Start 01/04/25 at 17:00; Stop 02/03/25 at 16:59 Potassium Chloride 10 meq AD PRN PO; Start 01/04/25 at 17:00; Stop 02/03/25 at 16:59 Potassium Chloride 10 meq AD PRN PO; Start 01/04/25 at 17:00; Stop 02/03/25 at 16:59 Magnesium Sulfate 50 ml @ 0 mls/hr PROTOCOL IV Last administered on 01/05/25at 04:24; Start 01/04/25 at 17:00; Stop 02/03/25 at 16:59 Atorvastatin Calcium 40 mg HS PO Last administered on 01/04/25at 21:28; Start 01/04/25 at 21:00; Stop 02/03/25 at 20:59 Clopidogrel Bisulfate 75 mg DAILY PO; Start 01/05/25 at 09:00; Stop 02/04/25 at 08:59 Spironolactone 25 mg DAILY PO; Start 01/05/25 at 09:00; Stop 02/04/25 at 08:59 Hydralazine HCl 10 mg BID PO; Start 01/05/25 at 09:00; Stop 02/04/25 at 08:59 Buspirone HCl 10 mg BID PO; Start 01/05/25 at 09:00; Stop 01/04/25 at 21:17; Status DC Buspirone HCl 10 mg BID PO Last administered on 01/04/25at 21:28; Start 01/04/25 at 21:30; Stop 02/03/25 at 21:29 Midodrine 10 mg ONCE ONCE PO; Start 01/05/25 at 05:30; Stop 01/05/25 at 05:31; Status DC Albumin Human 100 ml @ 0 mls/hr AD IV; Start 01/05/25 at 05:30; Stop 02/04/25 at 05:29 PHYSICAL EXAMINATION: GENERAL: No acute distress. HEENT: Normocephalic, atraumatic. CARDIAC: Positive S1 and S2. No murmurs. Defibrillator noted left side LUNGS: Clear to auscultation bilaterally. ABDOMEN: Bowel sounds present, soft, nontender. EXTREMITIES: 3+ pretibial edema on the left 2+ on right at baseline NEUROLOGIC: Cranial nerves 2-12 grossly intact. PSYCHIATRIC: Calm. TELEMETRY: Sinus rhythm no complex ectopy or dysrhythmia noted ASSESSMENT: Hypertensive urgency Elevated troponin Chest pain Dyslipidemia NSTEMI in 10/2020 Monomorphic ventricular tachycardia inducible at EP study s/p Visia PCD implant in 10/2020 Normal coronary arteries with LVEF of 60% via LHC in 10/2020 Right pontine ischemic CVA in 2022 Severe obstructive sleep apnea CKD stage IIIB Chronic venous insufficiency May-Thurner syndrome S/p venogram on 08/21/2024 s/p stent positioned over the left common iliac, left external iliac, and left common femoral vein 2D echo on 07/20/2024 with an EF of 65-70%, positive bubble study, moderate LVH, moderate TR, and RVSP of 51.7 mmHg History of a patent foramen ovale with positive bubble study in 07/2019 Normal Lexiscan stress test on 11/21/2024 PLAN: At this time continue home medications. I would like to schedule 1 more high sensitivity troponin this morning. I would also like to review results of 2D echocardiogram. Possible discharge home later today. All questions have been answered. ALONSO GERMAN MD Jan 05, 2025 06:14
--- NOTE | 2025-01-05 06:17 | NUR ---
dr fuller rounded this am. ordered high sensitive troponin x1 now.
--- NOTE | 2025-01-05 07:31 | NUR ---
called [employer] for device interrogation. spoke to verónica stated will notify combination saw operator client care representative of need for interrogation. provided with call back number.
[2025-01-05 08:23] LABS: ABG HCO3 24.1 mmol/L (21.0-28.0); ABG OXYGEN SATURATION 96.3 % (94.0-98.0); ABG PCO2 38 mmHg (35-48); ABG PH 7.424 (7.350-7.450); DEVICE COMMENT RR RA; PO2, ARTERIAL BG 81.4 mmHg (83.0-108.0)
[2025-01-05] MEDS: metOPROLol sucCINATE 50 MG TAB.SR.24H PO SCH (09:00)
[2025-01-05] MEDS ORDERED: busPIRone HCL 5 MG TABLET PO SCH (09:00)
[2025-01-05] MEDS: LISINOPRIL 40 MG TABLET PO SCH (09:00)
[2025-01-05] MEDS: hydrALAZine HCL 10 MG TABLET PO SCH (09:00)
[2025-01-05] MEDS: amLODIPine 5 MG TAB PO SCH (09:00)
[2025-01-05] MEDS: SPIRONOLACTONE 25 MG TAB PO SCH (09:38)
[2025-01-05] MEDS: furoSEMIDE 20 MG TABLET PO SCH (09:38)
[2025-01-05] MEDS: FAMOTIDINE 20MG TAB PO SCH (09:38)
[2025-01-05] MEDS: cloPIDOgrel 75MG TAB PO SCH (09:38)
[2025-01-05] MEDS: ASPIRIN 81MG CHEW TAB PO SCH (09:39)
[2025-01-05] MEDS: ENOXAPARIN SODIUM 40 MG/0.4 ML SYRINGE SQ SCH (09:39)
[2025-01-05] MEDS ORDERED: hydrOXYzine 25 MG TABLET PO PRN (10:00)
[2025-01-05] MEDS: LACTULOSE 20 GM/30 ML UDCUP PO ONE (11:50)
--- NOTE | 2025-01-05 16:30 | NUR ---
DISCHARGE UPDATE 2D ECHO REPORT STATES EF 60-65% AND PACEMAKER INTERROGATED BY IONA [facility] REP. REPORT IN CHART. DR. GERMAN AND TAM MADE AWARE. NO RESPONDS FROM DR. GERMAN AT THIS MOMENT. PER DR. TURCIOS, WILL DISCHARGE IN AM SOON DATA CENTER ENGINEER CLEARS FOR DISCHARGE.
--- NOTE | 2025-01-05 16:47 | PN ---
[facility] PROGRESS NOTE Date of Service: Jan 05, 2025 Time of Service: 16:44 SUBJECTIVE: 01/05 No acute events overnight. Pacemaker device to be interrogated. Echo ordered, pending to be ready by cardiology. Will follow up with further recommendations. Vitals and labs relatively unremarkable. REVIEW OF SYSTEMS 12 point ROS negative unless noted in HPI PHYSICAL EXAM: GENERAL APPEARANCE: The patient is awake, alert, and oriented, in no acute cardiopulmonary distress. NEUROLOGICAL: Cranial nerves II-XII grossly intact. 5/5 strength of RLE and RUE. 4/5 strength of LUE and LLE HEENT: Face is symmetric. Pupils are equal and reactive. Extraocular movements are intact. NECK: Supple. No JVD. No thyromegaly. No submental, submandibular, pre- /postauricular, occipital or supraclavicular lymphadenopathy. CHEST: Normal chest expansion. No Telemetry. LUNGS: Absence of any rales, rhonchi or any wheezing. CARDIOVASCULAR: Regular. S1 and S2 normal. No appreciable rubs, murmurs or gallops. ABDOMEN: Soft, nontender, and nondistended. There is no rebound, voluntary guarding, or rigidity. : Deferred. No [place]. EXTREMITIES: 1+ pitting edema of the bilateral lower extremities, changes of chronic venous stasis noted of the LLE Vital Signs (last 8hr) Date Time Temp Pulse Resp B/P (MAP) Pulse Ox O2 Delivery O2 Flow Rate FiO2 01/05/25 12:00 97.9 56 20 95/50 97 Room Air LABS: Laboratory: Test 01/05/25 08:22 01/05/25 03:11 01/04/25 19:55 01/04/25 13:16 Range/Units Blood Gas Specimen Type Arterial Arterial Blood pH 7.424 7.350-7.450 Arterial Blood Partial Pressure CO2 38 35-48 mmHg Arterial Blood Partial Pressure O2 81.4 L 83.0-108.0 mmHg Arterial Blood HCO3 24.1 21.0-28.0 mmol/L Arterial Blood Oxygen Saturation 96.3 94.0-98.0 % Arterial Blood Base Excess 0.0 -2.0-3.0 mmol/L Blood Gas Temperature 37.0 35.5-37.0 CELSIUS FiO2 21.0 % Blood Gas Specimen Comment RR RA White Blood Count 6.3 4.8-10.8 K/uL Red Blood Count 3.77 L 4.50-6.20 MIL/uL Hemoglobin 12.0 L 14.0-18.0 g/dL Hematocrit 34.7 L 42-54 % Mean Corpuscular Volume 92.0 79-99 fL Mean Corpuscular Hemoglobin 31.8 27.0-33.0 pg Mean Corpuscular Hemoglobin Concent 34.6 32.0-36.0 g/dL Red Cell Distribution Width 14.3 11.0-15.5 % Platelet Count 185 130-400 K/uL Mean Platelet Volume 10.1 7.5-10.5 fL Nucleated Red Blood Cells 0.0 0.0-0.19 % Sodium Level 139 136-145 mmol/L Potassium Level 3.9 3.5-5.1 mmol/L Chloride Level 106 101-111 mmol/L Carbon Dioxide Level 27 21-32 mmol/L Blood Urea Nitrogen 20 H 7-18 mg/dL Creatinine 1.5 H 0.5-1.3 mg/dL Glomerular Filtration Rate Calc 53 >90 mL/min Random Glucose 88 70-105 mg/dL Total Calcium 8.8 8.5-10.1 mg/dL Magnesium Level 1.80 1.80-2.40 mg/dL Troponin I High Sensitivity 150 *H 4-75 ng/L Total Creatine Kinase 194 21-232 U/L Urine Color COLORLESS YELLOW Urine Appearance CLEAR CLEAR Urine pH 5.5 5.0-8.0 Urine Specific [place] 1.010 1.001-1.031 Urine Protein NEGATIVE NEGATIVE mg/dL Urine Glucose (UA) NEGATIVE NEGATIVE mg/dL Urine Ketones NEGATIVE NEGATIVE mg/dL Urine Occult Blood NEGATIVE NEGATIVE Urine Nitrate NEGATIVE NEGATIVE Urine Bilirubin NEGATIVE NEGATIVE mg/dL Urine Urobilinogen 0.2 0.2-1.0 mg/dL Urine Leukocyte Esterase NEGATIVE NEGATIVE Felicitas/uL Test 01/04/25 12:28 Range/Units Immature Granulocyte % (Auto) 0.2 0-1 % Neutrophils (%) (Auto) 64.1 40.0-77.0 % Lymphocytes (%) (Auto) 23.6 21.0-51.0 % Monocytes (%) (Auto) 9.2 3.0-13.0 % Eosinophils (%) (Auto) 2.4 0.0-8.0 % Basophils (%) (Auto) 0.5 0.0-5.0 % Neutrophils # (Auto) 5.3 1.8-7.7 K/uL Lymphocytes # (Auto) 2.0 1.0-4.8 K/uL Monocytes # (Auto) 0.8 0.1-1.0 K/uL Eosinophils # (Auto) 0.20 0.00-0.70 K/uL Basophils # (Auto) 0.04 0.00-0.20 K/uL Absolute Immature Granulocyte (auto 0.02 0-1 K/uL Prothrombin Time 10.6 9.6-11.6 SEC Prothromb Time International Ratio 1.00 0.85-1.15 Activated Partial Thromboplast Time 24.8 L 26.3-35.5 SEC Total Bilirubin 0.5 0.2-1.0 mg/dL Direct Bilirubin 0.1 0.0-0.3 mg/dL Aspartate Amino Transf (AST/SGOT) 32 10-37 U/L Alanine Aminotransferase (ALT/SGPT) 75 12-78 U/L Alkaline Phosphatase 133 50-136 U/L AB-Gmp-N-Type Natriuretic Peptide 168 H 0-125 pg/mL Total Protein 7.9 6.0-8.3 g/dL Albumin 3.6 3.5-5.0 g/dL Thyroid Stimulating Hormone (TSH) 1.69 0.36-3.74 uIU/mL Current Medications Medications (Trade) Dose Ordered Sig/Uriah Route PRN Reason Start Time Stop Time Status Last Admin Dose Admin Acetaminophen (TYLenol 325MG TAB) 650 mg Q6H PRN PO MILD PAIN (1-3) 01/04/25 15:30 02/03/25 15:29 Albumin Human 100 ml @ 0 mls/hr AD IV 01/05/25 05:30 02/04/25 05:29 Amiodarone HCl (pacERONE 200MG) 200 mg BID PO 01/04/25 21:00 02/03/25 20:59 01/05/25 09:38 200 MG Amlodipine Besylate (NorvASC 5MG TAB) 10 mg DAILY PO 01/05/25 09:00 02/04/25 08:59 Aspirin (Aspirin 81mg Chew Tab) 81 mg DAILY PO 01/05/25 09:00 02/04/25 08:59 01/05/25 09:39 81 MG Atorvastatin Calcium (LIPItor 40MG) 40 mg HS PO 01/04/25 21:00 02/03/25 20:59 01/04/25 21:28 40 MG Buspirone HCl (BUspar) 10 mg BID PO 01/04/25 21:30 02/03/25 21:29 01/05/25 09:38 10 MG Buspirone HCl (BUspar) 10 mg BID PO 01/05/25 09:00 01/04/25 21:17 DC Clopidogrel Bisulfate (plaVIX 75MG) 75 mg DAILY PO 01/05/25 09:00 02/04/25 08:59 01/05/25 09:38 75 MG Enoxaparin Sodium (Lovenox) 40 mg DAILY SQ 01/05/25 09:00 02/04/25 08:59 01/05/25 09:39 40 MG Famotidine (Pepcid 20mg Tab) 20 mg DAILY PO 01/05/25 09:00 02/04/25 08:59 01/05/25 09:38 20 MG Furosemide (LASix 20MG TAB) 20 mg DAILY PO 01/05/25 09:00 02/04/25 08:59 01/05/25 09:38 20 MG Hydralazine HCl (APRESOLine 10MG TAB) 10 mg BID PO 01/05/25 09:00 02/04/25 08:59 Hydralazine HCl (APRESOLine 20MG INJ) 10 mg Q6H PRN IV ADMINISTER FOR SBP > 170 01/04/25 16:00 02/03/25 15:59 Hydroxyzine HCl (ATArax 25MG TAB) 100 mg TID PRN PO ANXIETY /INSOMNIA 01/05/25 10:00 02/04/25 09:59 Ipratropium [place] (AtrovENT UD) 0.5 MG Q6H PRN IH SHORTNESS OF BREATH 01/04/25 16:00 02/03/25 15:59 Lactulose (Constulose 20gm/ 30ml Udcup) 20 gm BID PO 01/05/25 21:00 02/04/25 20:59 Latanoprost (Xalatan) 1 DROP OU HS HS OU 01/05/25 21:00 02/04/25 20:59 Lisinopril (Prinivil 40mg) 40 mg DAILY PO 01/05/25 09:00 02/04/25 08:59 Magnesium Sulfate 50 ml @ 0 mls/hr PROTOCOL IV 01/04/25 17:00 02/03/25 16:59 01/05/25 04:24 25 MLS/HR Metoprolol Succinate (TopROL XL) 50 mg DAILY PO 01/05/25 09:00 02/04/25 08:59 Ondansetron HCl (zoFRAN 4MG INJ) 4 mg Q6H PRN IVP NAUSEA/VOMITING 01/04/25 15:30 02/03/25 15:29 Potassium Chloride 100 ml @ 100 mls/hr AD PRN IV POTASSIUM PROTOCOL 01/04/25 17:00 02/03/25 16:59 Potassium Chloride (K-Dur/Klor-Con 20meq) 10 meq AD PRN PO POTASSIUM PROTOCOL 01/04/25 17:00 02/03/25 16:59 Potassium Chloride (KCl 10% Elixir 20meq/15ml) 10 meq AD PRN PO POTASSIUM PROTOCOL 01/04/25 17:00 02/03/25 16:59 Spironolactone (Aldactone 25mg) 25 mg DAILY PO 01/05/25 09:00 02/04/25 08:59 01/05/25 09:38 25 MG DIAGNOSTICS / RADIOLOGY: [ ] ASSESSMENT: Atypical chest pain with elevated troponin, POA Headache x 1 day, POA Hypertensive urgency, POA, resolving Prior history of pontine CVA (2022) w/ history of AVM, POA 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, POA History of [place] [facility] [place] for V-tach storm, POA History of normal coronary angiogram on 2020, POA History of ICD implantation History of chronic kidney disease stage three, POA Untreated obstructive sleep apnea, POA Chronic venous insufficiency lower extremities with venous stasis dermatitis of the left lower extremity, POA Type 2 diabetes POA Hyperlipidemia, POA Obesity, POA PLAN: Patient will be admitted to cardiac telemetry monitoring Patient noted to have mildly elevated 2nd set of troponin, we will trend troponin to rule out active ACS, we will repeat troponin later tonight Patient to continue with aspirin 81 mg daily, if Troponin significantly up trends later tonight, we will consider anticoagulation with heparin Consultation with Cardiology will be requested, patient with prior hospitalization [place] [facility] [place] for monomorphic ventricular tachycardia with V-tach storm, on review of records, patient had a coronary angiogram in 2020 which has been documented as normal per Cardiology notes previously Blood pressure was noted to be significantly elevated on presentation but has been improving, patient to continue with home dose of lisinopril 40 mg daily, amlodipine 10 mg daily, metoprolol succinate 50 mg daily and hydralazine as p.r.n., and eplerenone We will follow up CT head without contrast for further evaluation of headache We will have Neurology follow up with the patient We will obtain a 2D echocardiogram Patient to continue with home dose of amiodarone for prior history of ventricular tachycardia, ICD will be interrogated as well Patient is morbidly obese with poorly controlled symptoms of sleep apnea, we will have pulmonology follow up for CPAP therapy this admission Patient has a prior history of AV malformation is supposed to see Dr. Houston as outpatient, he states that he is supposed to have MRI done as well as outpatient, we will continue to monitor this patient neurologically due to prior history of CVA DVT prophylaxis with Lovenox, GI prophylaxis with Pepcid Disposition: Pending echo and cardiology recommendations JAVIER TURCIOS MD Jan 05, 2025 16:47
--- NOTE | 2025-01-05 17:45 | HMCSR ---
APPROVED REPORT EXAM: Two-dimensional and M-mode echocardiogram with Doppler and color Doppler. INDICATION ICD: Chest pressure 2D Dimensions RVDd4.5 cmLVEF(%)74.1 (>50%)LVED Vol(simp.)158.0 mL IVSd0.9 (0.7-1.1cm)FS(%)44 %LVES Vol(simp.)68.0 mL LVDd5.9 (3.8-5.6cm)LA (2D)4.2 (1.6-4.0cm)LVEF(%, simp.)57 % PWd1.2 (0.7-1.1cm)Ao Root(2D)3.0 (2.0-3.7cm)LA ESV INDEX (BP)40.38 mL/m2 LVDs3.3 (2.5-4.0cm)LVOT diam2.3 (1.8-2.4cm) IVC diam2.8 cm Deformation Strain Apical 4-17.1 % Apical 2-17.0 % Apical 3-13.9 % Global Strain-16.0 % M-Mode Dimensions EPSS0.8 cm LA (MM)4.0 (1.6-4.0cm) Ao Root(MM)3.1 (2.0-3.7cm) Aortic Valve AoV Vmax1.7 m/Michel Peak GR10.9 mmHgLVOT Vmax1.5 m/s AoV VTI0.4 mAo Mean GR5.8 mmHgLVOT VTI0.31 m VILMA (VMAX)3.59 cm2AVA (VTI) 3.5 cm2 Mitral Valve MV E Vmax89.1 cm/sDECEL Mmns059 ms MV A Vmax80.2 cm/sP 1/2 T74 ms E/A ratio1.1MVA (PHT)3.0 cm2 TDI E/E' Medial9.4E/E' Lateral8.3 Medial E' Peak V9.48 cm/sLateral E' Peak V10.70 cm/s Tricuspid Valve TR Vmax2.4 m/sRAP (EST) 8 imMdIDLG42.7 mmHg TR Peak GR24.7 mmHg Left Ventricle The left ventricle is normal size. GLS -16.0%. There is normal LV segmental wall motion. There is nor mal left ventricular wall thickness. LVEF is 60-65%. Left ventricular filling pattern is normal for a ge. Right Ventricle The right ventricle is moderately dilated. The right ventricular systolic function is normal. Atria The left atrium is mildly dilated. Aortic Valve The aortic valve is normal in structure. No aortic regurgitation is present. There is no aortic valvu lar stenosis. Mitral Valve The mitral valve is normal in structure. There is trace of mitral valve regurgitation noted. There is no mitral valve stenosis. Tricuspid Valve The tricuspid valve is normal in structure. There is mild tricuspid valve regurgitation noted. Pulmonic Valve The pulmonary valve is normal in structure. There is no pulmonic valvular regurgitation. Great Vessels The aortic root is normal in size. IVC is dilated and collapses >50% with inspiration. Pericardium There is no pericardial effusion. Other Information Quality : Adequate Conclusion LVEF is 60-65%. The left atrium is mildly dilated.
[2025-01-05] MEDS: LACTULOSE 20 GM/30 ML UDCUP PO SCH (21:00)
[2025-01-05] MEDS: LATANOPROST 2.5 ML DROPS OU SCH (21:00)
--- NOTE | 2025-01-05 21:57 | CONS ---
CONSULTATION NOTE Date of Service: Jan 05, 2025 Reason for Consultation: Evaluation of left sided weakness. Requesting Physician: Hospitalist HISTORY OF PRESENT ILLNESS: Mr. Crowder, a 59-year-old right-handed male with a history of coronary artery disease, previous stroke with left-sided weakness, hypertension, high cholesterol, obesity, and a defibrillator, presents with complaints of headache, dizziness, and shortness of breath. The patient reports that while lying down asleep, he asked his provider to make him grits and eggs. After eating, he suddenly experienced his head "going up high" and started feeling dizzy. He also developed shortness of breath and noticed his blood pressure was increasing. The patient describes a sensation of his ears getting hot, which he associates with these episodes. He believes he may be retaining water. Mr. Crowder reports experiencing a headache localized to the back of his head, which he describes as throbbing in nature. He denies light sensitivity but mentions his eyes became a little blurry. He denies sound sensitivity. The patient reports mild nausea without vomiting. He also notes a new sensation of his mouth "twisting a little bit" from his head to his throat. The patient mentions having a stent placed in his left leg artery recently. He states that the doctor informed him it would take some time for the swelling to subside. Mr. Crowder believes that controlling his salt intake helps prevent exacerbations of his symptoms. Medical History - Coronary artery disease - Previous stroke with left-sided weakness - Hypertension - Hyperlipidemia - Obesity - Implanted cardiac defibrillator Surgical History - Stent placement in left leg artery, recent - Implantation of cardiac defibrillator Social History - Substance Use: Patient reports avoiding salt intake REVIEW OF SYSTEMS General: Positive for dizziness. HEENT: Positive for blurry vision, hot ears. Negative for light sensitivity. Cardiovascular: Positive for shortness of breath. Gastrointestinal: Positive for mild nausea. Negative for vomiting. Neurological: Positive for headache (throbbing, occipital). Negative for sound sensitivity.. PAST MEDICAL HISTORY: - Coronary artery disease - Previous stroke with left-sided weakness - Hypertension - Hyperlipidemia - Obesity - Implanted cardiac defibrillator PAST SURGICAL HISTORY: - Stent placement in left leg artery, recent - Implantation of cardiac defibrillator PAST SOCIAL HISTORY: No tobacco alcohol FAMILY HISTORY: none Coded Allergies: ibuprofen (Unverified Allergy, Mild, BLOATING, 04/16/24) INDIGESTION/ACID REFLUX PHYSICAL EXAM Mental status: The patient is alert, attentive, and oriented. Speech is clear and fluent with good repetition, comprehension, and naming. Pt recalls 3/3 objects at 5 minutes. Cranial nerves: CN II: Visual kiran are full to confrontation. CN III, IV, : At primary gaze, there is no eye deviation. CN V: Facial sensation is intact to pinprick in all 3 divisions bilaterally. Corneal responses are intact. CN VII: Face is symmetric with normal eye closure and smile. CN VIII: Hearing is normal to rubbing fingers CN IX, X: Palate elevates symmetrically. Phonation is normal. CN XI: Head turning and shoulder shrug are intact CN XII: Tongue is midline with normal movements and no atrophy. Motor: left sided weakness 4+/5 Reflexes: Reflexes are 2+ and symmetric at the biceps, triceps, knees, and ankles. Plantar responses are flexor. Sensory: Light touch, pinprick, position sense, and vibration sense are intact in fingers and toes. Coordination: Rapid alternating movements and fine finger movements are intact. There is no dysmetria on [id number] and [id number]. There are no abnormal or extraneous movements. Romberg is absent. Gait/Stance: Not evaluated a Vital Sign (Last 24 Hours) 01/05/25 01/05/25 01/05/25 08:00 18:33 20:00 Temp 98.1 Pulse 51 Resp 18 B/P (MAP) 100/58 Pulse Ox 96 O2 Delivery Room Air O2 Flow Rate 0 FiO2 21 Intake & Output (last 24hrs) 01/04/25 01/04/25 01/05/25 15:00 23:00 07:00 Intake Total 120 ml Output Total 400 ml Balance 120 ml -400 ml LABS: Laboratory: Test 01/05/25 08:22 01/05/25 03:11 01/04/25 19:55 01/04/25 13:16 Range/Units Blood Gas Specimen Type Arterial Arterial Blood pH 7.424 7.350-7.450 Arterial Blood Partial Pressure CO2 38 35-48 mmHg Arterial Blood Partial Pressure O2 81.4 L 83.0-108.0 mmHg Arterial Blood HCO3 24.1 21.0-28.0 mmol/L Arterial Blood Oxygen Saturation 96.3 94.0-98.0 % Arterial Blood Base Excess 0.0 -2.0-3.0 mmol/L Blood Gas Temperature 37.0 35.5-37.0 CELSIUS FiO2 21.0 % Blood Gas Specimen Comment RR RA White Blood Count 6.3 4.8-10.8 K/uL Red Blood Count 3.77 L 4.50-6.20 MIL/uL Hemoglobin 12.0 L 14.0-18.0 g/dL Hematocrit 34.7 L 42-54 % Mean Corpuscular Volume 92.0 79-99 fL Mean Corpuscular Hemoglobin 31.8 27.0-33.0 pg Mean Corpuscular Hemoglobin Concent 34.6 32.0-36.0 g/dL Red Cell Distribution Width 14.3 11.0-15.5 % Platelet Count 185 130-400 K/uL Mean Platelet Volume 10.1 7.5-10.5 fL Nucleated Red Blood Cells 0.0 0.0-0.19 % Sodium Level 139 136-145 mmol/L Potassium Level 3.9 3.5-5.1 mmol/L Chloride Level 106 101-111 mmol/L Carbon Dioxide Level 27 21-32 mmol/L Blood Urea Nitrogen 20 H 7-18 mg/dL Creatinine 1.5 H 0.5-1.3 mg/dL Glomerular Filtration Rate Calc 53 >90 mL/min Random Glucose 88 70-105 mg/dL Total Calcium 8.8 8.5-10.1 mg/dL Magnesium Level 1.80 1.80-2.40 mg/dL Troponin I High Sensitivity 150 *H 4-75 ng/L Total Creatine Kinase 194 21-232 U/L Urine Color COLORLESS YELLOW Urine Appearance CLEAR CLEAR Urine pH 5.5 5.0-8.0 Urine Specific [place] 1.010 1.001-1.031 Urine Protein NEGATIVE NEGATIVE mg/dL Urine Glucose (UA) NEGATIVE NEGATIVE mg/dL Urine Ketones NEGATIVE NEGATIVE mg/dL Urine Occult Blood NEGATIVE NEGATIVE Urine Nitrate NEGATIVE NEGATIVE Urine Bilirubin NEGATIVE NEGATIVE mg/dL Urine Urobilinogen 0.2 0.2-1.0 mg/dL Urine Leukocyte Esterase NEGATIVE NEGATIVE Felicitas/uL Test 01/04/25 12:28 Range/Units Immature Granulocyte % (Auto) 0.2 0-1 % Neutrophils (%) (Auto) 64.1 40.0-77.0 % Lymphocytes (%) (Auto) 23.6 21.0-51.0 % Monocytes (%) (Auto) 9.2 3.0-13.0 % Eosinophils (%) (Auto) 2.4 0.0-8.0 % Basophils (%) (Auto) 0.5 0.0-5.0 % Neutrophils # (Auto) 5.3 1.8-7.7 K/uL Lymphocytes # (Auto) 2.0 1.0-4.8 K/uL Monocytes # (Auto) 0.8 0.1-1.0 K/uL Eosinophils # (Auto) 0.20 0.00-0.70 K/uL Basophils # (Auto) 0.04 0.00-0.20 K/uL Absolute Immature Granulocyte (auto 0.02 0-1 K/uL Prothrombin Time 10.6 9.6-11.6 SEC Prothromb Time International Ratio 1.00 0.85-1.15 Activated Partial Thromboplast Time 24.8 L 26.3-35.5 SEC Total Bilirubin 0.5 0.2-1.0 mg/dL Direct Bilirubin 0.1 0.0-0.3 mg/dL Aspartate Amino Transf (AST/SGOT) 32 10-37 U/L Alanine Aminotransferase (ALT/SGPT) 75 12-78 U/L Alkaline Phosphatase 133 50-136 U/L IE-Wbf-E-Type Natriuretic Peptide 168 H 0-125 pg/mL Total Protein 7.9 6.0-8.3 g/dL Albumin 3.6 3.5-5.0 g/dL Thyroid Stimulating Hormone (TSH) 1.69 0.36-3.74 uIU/mL DIAGNOSTICS / RADIOLOGY: ASSESSMENT / PLAN: Mr. Crowder, a 59-year-old male with a history of coronary artery disease, previous stroke with left-sided weakness, hypertension, hyperlipidemia, obesity, and implanted defibrillator, presented with chest pain and headaches. Episodic Headache Assessment: Patient reports experiencing a throbbing headache localized to the posterior region, associated with dizziness, blurred vision, and mild nausea. The headache occurred suddenly while the patient was at rest. There was no photophobia or phonophobia reported. The patient's history of hypertension and previous stroke increases the risk of secondary causes for headache. However, the neurological examination was largely unremarkable, with no new focal deficits noted beyond the patient's baseline left-sided weakness. Plan: - Continue monitoring neurological status - Manage blood pressure as part of overall care plan - Patient to report any new or worsening neurological symptoms Hypertension Assessment: Patient has a history of hypertension. Current blood pressure reading of 150/90 mmHg, which the patient reports is higher than his usual of 129-130 mmHg systolic. The elevated blood pressure may be contributing to the patient's headache and dizziness. Patient also mentions feeling that he is retaining water, which could be a factor in blood pressure control. Plan: - Continue current antihypertensive regimen - Emphasize importance of salt restriction in diet - Monitor blood pressure regularly during hospital stay Recent lower extremity stent placement Assessment: Patient reports recent stent placement in the left leg artery. The specific indication for the stent was not discussed, but it may be related to the patient's known coronary artery disease and overall cardiovascular risk profile. Patient mentions that the doctor informed him it will take time for the effects of the stent to manifest. Plan: - Continue post-stent care as directed by the interventional team - Monitor for any complications or symptoms related to the stent site Coronary Artery Disease Assessment: Patient has a known history of coronary artery disease. He presented with chest pain, which was the initial reason for admission. The specific characteristics of the chest pain were not discussed in detail during this neurological consultation. Plan: - Defer management to primary team and cardiology - Ensure continuation of appropriate cardiac medications Thank you for your consultation I will sign off. ELMIRA MARTINES MD Jan 05, 2025 21:57
[2025-01-06] VITALS (7 sets, daily range): BP systolic 108–122; BP diastolic 60–66; PULSE 53–63; RESP 18–20; TEMP 97.3–98.4; O2SAT 97–98
[2025-01-06 05:52] LABS: BASOPHILS # (AUTO) 0.04 K/uL (0.00-0.20); BASOPHILS % (AUTO) 0.6 % (0.0-5.0); EOSINOPHILS # (AUTO) 0.18 K/uL (0.00-0.70); EOSINOPHILS % (AUTO) 2.9 % (0.0-8.0); HEMATOCRIT 36.2 % (42-54); IMMATURE GRANULOCYTE ABSOLUTE 0.01 K/uL (0-1); LYMPHOCYTES % (AUTO) 31.6 % (21.0-51.0); MEAN CORPUSCULAR HEMOGLOBIN 31.5 pg (27.0-33.0); MEAN CORPUSCULAR VOLUME 92.8 fL (79-99); MONOCYTES # (AUTO) 0.7 K/uL (0.1-1.0); MONOCYTES % (AUTO) 10.7 % (3.0-13.0); NEUTROPHILS # (AUTO) 3.4 K/uL (1.8-7.7); PLATELET COUNT (AUTO) 186 K/uL (130-400); RED CELL DISTRIBUTION WIDTH 14.3 % (11.0-15.5); WHITE BLOOD COUNT (AUTO) 6.2 K/uL (4.8-10.8)
[2025-01-06 06:02] LABS: CREATININE 1.7 mg/dL (0.5-1.3); PHOSPHORUS 4.6 mg/dL (2.5-4.9); POTASSIUM 4.1 mmol/L (3.5-5.1)
--- NOTE | 2025-01-06 10:09 | NUR ---
PATIENT LAST BM WAS 4 DAYS AGO. PATIENT REFUSED LACTULOSE. EDUCATED PATIENT ON IMPORTANCE OF REGULAR BOWEL MOVEMENTS.
[2025-01-06] MEDS ORDERED: SPIR25TA6 PO (14:02)
[2025-01-06] MEDS ORDERED: ATOR40TA69 PO (14:02)
--- NOTE | 2025-01-06 14:18 | DS ---
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 He said the chest discomfort feels like chest pressure which comes and goes and had some shortness of breath associated with it. He cynthia some discomfort and heaviness involving the ICD area. Patient denies any recent ICD shocks. EKG revealed sinus rhythm with heart rate of 74. He complained of headache and "strange feeling" in his head pointing towards his right parietal and occipital area and also mentioned that it varies with fluctuation in his blood pressure . Headache is mild in intensity, and started about 30 minutes ago. Patient currently denies fevers, chills, shortness of b reath, nausea, vomiting, abdominal pain, new onset weakness . Denies worsening swelling of the lower extremities. A CT of the head was ordered. Patient is currently hemodynamically stable with temperature 98.1, pulse 74, respiratory rate 20, blood pressure 127/76 and saturating at 97% at room air . On initial presentation the troponin is at 33 and the repeat troponin trended up to 142, patient's creatinine at 1.5, BNP 168. He was admitted and cardiology was consulted. Pacemaker device was interrogated with no new events. Echocardiogram was done showing normal EF, with no major valvular abnormalities. The following day the patient was reassessed and cleared for discharge by cardiology to follow up with his food and drug research scientist in1-2 weeks. Missile And Missile Checkout Technician(s): Cardiology Procedure(s): Echocardiogram: Conclusion LVEF is 60-65%. The left atrium is mildly dilated. US VENOUS DOPPLER BILATERAL HISTORY: Leg swelling COMPARISON: None TECHNIQUE: Bilateral lower extremity venous Doppler ultrasound study was performed. FINDINGS: The common femoral, femoral, popliteal, and posterior tibial veins are visualized. Normal flow with augmentation and compressibilities are demonstrated. The greater saphenous veins are also seen and grossly patent. IMPRESSION: 1. No evidence of deep venous thrombosis is seen. CT HEAD/BRAIN W/O CONTRAST HISTORY: Headaches COMPARISON: None TECHNIQUE: Multiple sequential axial images of the head were obtained from the base of the skull through vertex. Patient was not given contrast through intravenous route. FINDINGS: The ventricles and extraventricular CSF spaces are nondilated for patient's age. There is no midline shift, mass effect or herniation. No acute intracranial bleed is seen. Visualized portion of the paranasal sinuses are grossly within normal limits. IMPRESSION: 1. No acute intracranial bleed is seen. CHEST 1VW HISTORY: Chest pressure COMPARISON: 12/20/2024 FINDINGS: A frontal projection of the chest was obtained. Mild bilateral pulmonary infiltrates are seen may be related to mild pulmonary vascular congestion with possible superimposed pneumonitis. The heart is borderline enlarged. All the lines and tubes are again seen in place. No evidence of aortic calcification is seen. IMPRESSION: 1. Mild bilateral pulmonary infiltrates are seen may be related to mild pulmonary vascular congestion with possible superimposed pneumonitis. 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, POA 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, POA History of hospitalization in [facility] in 05/07 for V-tach storm, POA History of normal coronary angiogram on 2020, POA History of ICD implantation History of chronic kidney disease stage three, POA Untreated obstructive sleep apnea, POA Chronic venous insufficiency lower extremities with venous stasis dermatitis of the left lower extremity, POA Type 2 diabetes POA Hyperlipidemia, POA Obesity, POA Discharge Instructions: Follow up with PCP In 3-7 days Follow up with cardiology in 1-2 weeks Home Medications: Active Scripts Hydroxyzine Pamoate (Hydroxyzine Pamoate) 100 Mg Capsule, 100 MG PO Q8 PRN for ANXIETY /INSOMNIA, #30 CAP Prov:SHANAE IBARRA NP 12/20/24 Albuterol Sulfate (Ventolin Hfa/Proventil Hfa/Proair Hfa) 90 Mcg Puff, 2 PUFF IH Q4H for WHEEZING, #1 INHALER 0 Refills Prov:SHANAE IBARRA NP 12/15/24 Reported Medications Clonidine (Clonidine) 0.3 Mg/24 Hour Patch.tdwk, 1 PATCH TP QWEEK for 28 Days, #4 PATCH 0 Refills 01/04/25 Latanoprost (Latanoprost) 0.005 % Drops, 1 DROP OU HS, ML 0 Refills 01/04/25 Fluticasone Propionate (Fluticasone Propionate) 0.05 % Cream..g., 1 APPL NS DAILY for 30 Days, #60 GM 0 Refills 01/04/25 Lisinopril (Lisinopril) 40 Mg Tablet, 1 TAB PO DAILY for 30 Days, #30 TAB 0 Refills 01/04/25 Hydralazine HCl (Hydralazine HCl) 25 Mg Tablet, 1 TAB PO TIDP PRN for IF SBP GREATER THAN 180 for 30 Days, #90 TAB 0 Refills 01/04/25 Amiodarone HCl (Amiodarone HCl) 200 Mg Tablet, 200 MG PO BID, TAB 09/04/24 Atorvastatin Calcium (LIPITOR) 40 Mg Tablet, 40 MG PO DAILY, TAB 09/04/24 Buspirone HCl (Buspirone HCl) 10 Mg Tablet, 10 MG PO BID, TAB 09/04/24 Eplerenone (Eplerenone) 25 Mg Tablet, 25 MG PO DAILY, TAB 09/04/24 Aspirin (ASPIRIN 81MG CHEW TAB) 81 Mg Tab.chew, 81 MG PO DAILY, TAB.CHEW 09/04/24 Furosemide (Furosemide) 20 Mg Tablet, 20 MG PO DAILY, TAB 09/04/24 Amlodipine Besylate (Amlodipine Besylate) 10 Mg Tablet, 10 MG PO DAILY for 30 Days, #30 TAB 0 Refills 09/04/24 Clopidogrel Bisulfate (Clopidogrel) 75 Mg Tablet, 75 MG PO DAILY, TAB 09/04/24 Metoprolol Succinate (Metoprolol Succinate) 50 Mg Tab.er.24h, 50 MG PO DAILY, TAB 09/04/24 Discontinued Reported Medications Empagliflozin (Jardiance) 10 Mg Tablet, 10 MG PO DAILY, TAB 09/04/24 Discontinued Scripts Benzonatate (Tessalon Perles) 100 Mg Cap, 200 MG PO TID for cough, #30 CAP 0 Refills Prov:SHANAE IBARRA NP 12/15/24 Azithromycin (Zithromax Tri-Felipe) 500 Mg Tablet, 500 MG PO DAILY for 7 Days, #7 TAB Prov:SHANAE IBARRA NP 12/15/24 Trazodone HCl (Trazodone HCl) 50 Mg Tablet, 1 TAB PO HS for 30 Days, #30 TAB 1 Refill Prov:GONSALO HASSAN MD 11/26/24 New Medications: Atorvastatin Calcium (Lipitor) 40 Mg Tablet 40 MG PO HS, #30 TAB Spironolactone (Spironolactone) 25 Mg Tablet 25 MG PO DAILY, #30 TAB Continued Medications: Albuterol Sulfate (Ventolin Hfa/Proventil Hfa/Proair Hfa) 90 Mcg Puff 2 PUFF IH Q4H for WHEEZING, #1 INHALER 0 Refills Amiodarone HCl (Amiodarone HCl) 200 Mg Tablet 200 MG PO BID, TAB Amlodipine Besylate (Amlodipine Besylate) 10 Mg Tablet 10 MG PO DAILY for 30 Days, #30 TAB 0 Refills Aspirin (Aspirin 81MG Chew Tab) 81 Mg Tab.chew 81 MG PO DAILY, TAB.CHEW Atorvastatin Calcium (Lipitor) 40 Mg Tablet 40 MG PO DAILY, TAB Buspirone HCl (Buspirone HCl) 10 Mg Tablet 10 MG PO BID, TAB Clopidogrel Bisulfate (Clopidogrel) 75 Mg Tablet 75 MG PO DAILY, TAB Eplerenone (Eplerenone) 25 Mg Tablet 25 MG PO DAILY, TAB Fluticasone Propionate (Fluticasone Propionate) 0.05 % Cream..g. 1 APPL NS DAILY for 30 Days, #60 GM 0 Refills Furosemide (Furosemide) 20 Mg Tablet 20 MG PO DAILY, TAB Hydralazine HCl (Hydralazine HCl) 25 Mg Tablet 1 TAB PO TIDP PRN for IF SBP GREATER THAN 180 for 30 Days, #90 TAB 0 Refills Hydroxyzine Pamoate (Hydroxyzine Pamoate) 100 Mg Capsule 100 MG PO Q8 PRN for ANXIETY /INSOMNIA, #30 CAP Latanoprost (Latanoprost) 0.005 % Drops 1 DROP OU HS, ML 0 Refills Lisinopril (Lisinopril) 40 Mg Tablet 1 TAB PO DAILY for 30 Days, #30 TAB 0 Refills Metoprolol Succinate (Metoprolol Succinate) 50 Mg Tab.er.24h 50 MG PO DAILY, TAB Discontinued Medications: Clonidine (Clonidine) 0.3 Mg/24 Hour Patch.tdwk 1 PATCH TP QWEEK for 28 Days, #4 PATCH 0 Refills Time spent arranging discharge: 31-60 minutes JAVIER TURCIOS MD Jan 06, 2025 14:18
--- NOTE | 2025-01-06 15:17 | NUR ---
EDUCATED PATIENT ON MEDICATIONS WELL SIDE EFFECTS. INFORMED PATIENT TO ASSOCIATE MEDICAL DIRECTOR MEDICATIONS AT [facility]. REMOVED IV AND APPLIED PRESSURE UNTIL BLEEDING STOPPED THEN APPLIED DRESSING. REMOVED TELE MONITOR AND RETURNED. PATIENT LEFT WITH ALL PERSONAL BELONGINGS. LEFT VIA PERSONAL WHEELCHAIR TO PRIVATE VEHICLE.
== END 2025-01-06 15:15 | disposition home or self-care (01) ==
LOC: EDH 11:41 → EDHIP 11:42 → INTOOBSV 11:42 → 2AH 18:50
PROVIDERS: ADMIT Internal Medicine; ATTEND Internal Medicine
DX: R07.89 Other chest pain (principal); R51.9 Headache, unspecified; I16.0 Hypertensive urgency; I12.9 Hypertensive chronic kidney disease with stage 1 through stage 4 chronic kidney disease, or unspecified chronic kidney disease; E11.22 Type 2 diabetes mellitus with diabetic chronic kidney disease; N18.32 Chronic kidney disease, stage 3b; M79.89 Other specified soft tissue disorders; R42 Dizziness and giddiness; R53.1 Weakness; R60.0 Localized edema; R91.8 Other nonspecific abnormal finding of lung field; E78.5 Hyperlipidemia, unspecified; I24.9 Acute ischemic heart disease, unspecified; I25.10 Atherosclerotic heart disease of native coronary artery without angina pectoris; I25.2 Old myocardial infarction; E78.00 Pure hypercholesterolemia, unspecified; E66.01 Morbid (severe) obesity due to excess calories; Z79.82 Long term (current) use of aspirin; Z79.899 Other long term (current) drug therapy; Z79.02 Long term (current) use of antithrombotics/antiplatelets; Z86.79 Personal history of other diseases of the circulatory system; Z95.810 Presence of automatic (implantable) cardiac defibrillator
CPT/HCPCS: 99285; 84443; 82550; 80076; 83735 ×3; 84484 ×4; 80048 ×3; 83880; 85025 ×2; 85610; 85730; 81003; 36415 ×3; 71045; 70450; 93970; 93005; 96372 ×2; 96365; 82803; 85027; 93306; 93356; 36600; 84100; G0378 ×48; A4606; J3475; J1650 ×2; 94760

== ENCOUNTER 2025-02-03 23:24 | Emergency (ER) | payer MEDICAID ==
[~2025-02-03] VITALS: Ht 182.9 cm; Wt 147.4 kg
[~2025-02-03 23:24] MED LIST changes: -AZIT500T2 PO; -BENZ-39 PO; -EMPA10TA PO; +FLUT30CR NS; +HYDR25TA67 PO; +LATA2.5D7 OU; +LISI40TA15 PO; +SPIR25TA6 PO; -TRAZ-185 PO
[2025-02-04 00:40] LABS: IMMATURE GRANULOCYTE ABSOLUTE 0.01 K/uL (0-1); NUCLEATED RED BLOOD CELLS 0.0 % (0.0-0.19); PLATELET COUNT (AUTO) 217 K/uL (130-400); RED BLOOD CELL COUNT(AUTO) 4.07 MIL/uL (4.50-6.20); RED CELL DISTRIBUTION WIDTH 14.7 % (11.0-15.5); WHITE BLOOD COUNT (AUTO) 7.3 K/uL (4.8-10.8)
[2025-02-04 00:57] LABS: CREATININE 1.8 mg/dL (0.5-1.3); GLOMERULAR FILTR. RATE CALC 42.0 mL/min (>90); GLUCOSE,RANDOM 108.0 mg/dL (70-105); SODIUM SERUM 140.0 mmol/L (136-145); UREA NITROGEN, BLOOD 22.0 mg/dL (7-18)
[2025-02-04 01:02] LABS: CREATINE KINASE, TOTAL 258.0 U/L (21-232)
--- NOTE | 2025-02-04 01:10 | ERN ---
ED Note History of Present Illness Stated Complaint: CHEST PRESSURE Chief Complaint: Hypertension Time Seen by MD: 23:35 Dictation: This is a 59-year-old male with multiple medical problems presented to the emergency room complaining of pressure-like sensation near his defibrillator her and he also started experiencing some swelling and bruising in that area today. He also stated that he had epigastric pain which started about an hour prior to the presentation to the ER. No nausea vomitings no diarrhea no jaundice no history of any constipation hematemesis or melena. Did that he ate extremely salty sauce and every time he eats increased sodium diets he feels swollen. Temperature 98 pulse 69 respirations 17 blood pressure 147/82 with a pulse oximetry of 98% on room air Chronic comorbidities include coronary artery disease, cerebrovascular accident history with left-sided deficits, hypertension, left leg stent placements for peripheral arterial disease and a history of defibrillator placement. Allergies: Coded Allergies: ibuprofen (Unverified Allergy, Mild, BLOATING, 04/16/24) INDIGESTION/ACID REFLUX Home Meds Active Scripts Spironolactone (Spironolactone) 25 Mg Tablet, 25 MG PO DAILY, #30 TAB Prov:JAVIER TURCIOS MD 01/06/25 Atorvastatin Calcium (LIPITOR) 40 Mg Tablet, 40 MG PO HS, #30 TAB Prov:JAVIER TURCIOS MD 01/06/25 Hydroxyzine Pamoate (Hydroxyzine Pamoate) 100 Mg Capsule, 100 MG PO Q8 PRN for ANXIETY /INSOMNIA, #30 CAP Prov:SHANAE IBARRA NP 12/20/24 Albuterol Sulfate (Ventolin Hfa/Proventil Hfa/Proair Hfa) 90 Mcg Puff, 2 PUFF IH Q4H for WHEEZING, #1 INHALER 0 Refills Prov:SHANAE IBARRA NP 12/15/24 Reported Medications Latanoprost (Latanoprost) 0.005 % Drops, 1 DROP OU HS, ML 0 Refills 01/04/25 Fluticasone Propionate (Fluticasone Propionate) 0.05 % Cream..g., 1 APPL NS DAILY for 30 Days, #60 GM 0 Refills 01/04/25 Lisinopril (Lisinopril) 40 Mg Tablet, 1 TAB PO DAILY for 30 Days, #30 TAB 0 Refills 01/04/25 Hydralazine HCl (Hydralazine HCl) 25 Mg Tablet, 1 TAB PO TIDP PRN for IF SBP GREATER THAN 180 for 30 Days, #90 TAB 0 Refills 01/04/25 Amiodarone HCl (Amiodarone HCl) 200 Mg Tablet, 200 MG PO BID, TAB 09/04/24 Atorvastatin Calcium (LIPITOR) 40 Mg Tablet, 40 MG PO DAILY, TAB 09/04/24 Buspirone HCl (Buspirone HCl) 10 Mg Tablet, 10 MG PO BID, TAB 09/04/24 Eplerenone (Eplerenone) 25 Mg Tablet, 25 MG PO DAILY, TAB 09/04/24 Aspirin (ASPIRIN 81MG CHEW TAB) 81 Mg Tab.chew, 81 MG PO DAILY, TAB.CHEW 09/04/24 Furosemide (Furosemide) 20 Mg Tablet, 20 MG PO DAILY, TAB 09/04/24 Amlodipine Besylate (Amlodipine Besylate) 10 Mg Tablet, 10 MG PO DAILY for 30 Days, #30 TAB 0 Refills 09/04/24 Clopidogrel Bisulfate (Clopidogrel) 75 Mg Tablet, 75 MG PO DAILY, TAB 09/04/24 Metoprolol Succinate (Metoprolol Succinate) 50 Mg Tab.er.24h, 50 MG PO DAILY, TAB 09/04/24 Past Medical History Past Medical History: CAD, CVA, Heart Disease, Hypertension, CO, Stroke Additional Past Medical Hx: LEFT SIDE WEAKNESS S/P STROKE Surgical History: Pacer/AICD Surgical History Other: LEFT LEG STENT, DEFIBRILATOR Family History: Negative Social History: Lives with family RN Note Reviewed/Agreed w/PFSH: Yes Review of System Dictation Constitutional: Negative for fever,chills, and weight loss Eyes: Negative for injury, pain,redness, and discharge ENT: Negative for injury,pain or swelling Cardiovascular: Pause for chest pressure near the defibrillator but denied, palpitations, and edema Respiratory: Negative for shortness of breath, cough, and wheezing, Abdomen/GI: Positive for epigastric abdominal pain, denied nausea, vomiting, diarrhea, and constipation Back: Negative for injury and pain : Negative for injury, bleeding and discharge MS/Extremity: Negative for injury and deformity Skin: Negative for rash, and discoloration Neuro: Negative for headache, weakness, numbness, tingling, and seizure Psych: Negative for suicide ideation, homicidal ideation, and hallucinations Initial Vital Sign VS Vital Signs Date Time Temp Pulse Resp B/P (MAP) Pulse Ox O2 Delivery O2 Flow Rate FiO2 02/03/25 23:28 98.1 69 17 147/82 98 Room Air 0 02/03/25 23:45 21 Physical Exam Dictation General: awake, alert, NAD Head/Face: Normocephalic, atraumatic Eyes: PERRL, EOMI, vision at baseline ENT: oral cavity clear, TMs clear, no signs of infection Neck: Trachea midline, supple, no nuchal rigidity Cardiovascular: RRR, normal S1/S2, No MRGs, no JVD Respiratory: CTAB, no respiratory distress, No rales or wheezes Abdomen: Soft, non-tender, non-distended, normal bowel sounds, no guarding or rebound. Skin: Warm, dry, normal turgor, no rash MS/Extremity: Pulses equal, no cyanosis, neurovascular intact, FROM Neuro: COAx4, GCS 15, strength 5/5, CN 2-12 intact, normal cerebellar exam, normal gait, Psych: Normal behavior, mood, and affect normal Extremities-trace edema without any palpable cords, Homans sign is negative Results (Laboratory/Radiology) Laboratory/Radiology Laboratory Tests Test 02/04/25 00:34 02/04/25 01:26 White Blood Count 7.3 K/uL (4.8-10.8) Red Blood Count 4.07 MIL/uL (4.50-6.20) L Hemoglobin 13.2 g/dL (14.0-18.0) L Hematocrit 37.0 % (42-54) L Mean Corpuscular Volume 90.9 fL (79-99) Mean Corpuscular Hemoglobin 32.4 pg (27.0-33.0) Mean Corpuscular Hemoglobin Concent 35.7 g/dL (32.0-36.0) Red Cell Distribution Width 14.7 % (11.0-15.5) Platelet Count 217 K/uL (130-400) Mean Platelet Volume 10.0 fL (7.5-10.5) Immature Granulocyte % (Auto) 0.1 % (0-1) Neutrophils (%) (Auto) 53.5 % (40.0-77.0) Lymphocytes (%) (Auto) 32.4 % (21.0-51.0) Monocytes (%) (Auto) 10.8 % (3.0-13.0) Eosinophils (%) (Auto) 2.6 % (0.0-8.0) Basophils (%) (Auto) 0.6 % (0.0-5.0) Neutrophils # (Auto) 3.9 K/uL (1.8-7.7) Lymphocytes # (Auto) 2.4 K/uL (1.0-4.8) Monocytes # (Auto) 0.8 K/uL (0.1-1.0) Eosinophils # (Auto) 0.19 K/uL (0.00-0.70) Basophils # (Auto) 0.04 K/uL (0.00-0.20) Absolute Immature Granulocyte (auto 0.01 K/uL (0-1) Nucleated Red Blood Cells 0.0 % (0.0-0.19) Sodium Level 140 mmol/L (136-145) Potassium Level 3.9 mmol/L (3.5-5.1) Chloride Level 105 mmol/L (101-111) Carbon Dioxide Level 30 mmol/L (21-32) Blood Urea Nitrogen 22 mg/dL (7-18) H Creatinine 1.8 mg/dL (0.5-1.3) H Glomerular Filtration Rate Calc 42 mL/min (>90) Random Glucose 108 mg/dL (70-105) H Total Calcium 8.9 mg/dL (8.5-10.1) Total Creatine Kinase 258 U/L (21-232) #H Troponin I High Sensitivity 19 ng/L (4-75) Urine Color YELLOW (YELLOW) Urine Appearance CLEAR (CLEAR) Urine pH 6.5 (5.0-8.0) Urine Specific [place] 1.020 (1.001-1.031) Urine Protein NEGATIVE mg/dL (NEGATIVE) Urine Glucose (UA) NEGATIVE mg/dL (NEGATIVE) Urine Ketones NEGATIVE mg/dL (NEGATIVE) Urine Occult Blood NEGATIVE (NEGATIVE) Urine Nitrate NEGATIVE (NEGATIVE) Urine Bilirubin NEGATIVE mg/dL (NEGATIVE) Urine Urobilinogen >=8.0 mg/dL (0.2-1.0) H Urine Leukocyte Esterase NEGATIVE Felicitas/uL Urine RBC None /HPF (0-1) Urine WBC 0-1 /HPF (0-1) Urine Bacteria None /HPF (None Seen) Labs Reviewed?: Yes EKG Comment: 12 lead EKG done on 02/04/2025 at 12:15 a.m. showed heart rate of 66, CT interval 185, QRS duration 107, QT/QTC 398/417. Impression normal sinus rhythm with nonspecific STT wave changes no acute ST-T elevations or deep ST depressions that I could appreciate. EKG rhythm strip shows a normal sinus rhythm with a no acute changes. Overall somewhat of a low voltage. Interpreted by ER MD Dr. Escobar ED Course ED Course Orders Procedure Category Date Status Time Cbc With Differential LAB 02/04/25 Complete 00:05 Chest 1vw RAD 02/04/25 Taken 00:05 12 Lead Ekg Tracing- EKG 02/04/25 Logged Technical 00:05 Creatine Kinase, Total LAB 02/04/25 Complete 00:05 Troponin I High LAB 02/04/25 Complete Sensitivity 00:05 Urinalysis Profile LAB 02/04/25 Complete 00:05 Basic Metabolic Panel LAB 02/04/25 Complete 00:05 Furosemide 80 Mg PHA 02/04/25 Complete Tablet (Lasix 80mg 01:30 Current Medications Medications (Trade) Dose Ordered Sig/Uriah Route PRN Reason Start Time Stop Time Status Last Admin Dose Admin Furosemide (LASix 80MG TAB) 80 mg ONCE ONCE PO 02/04/25 01:30 02/04/25 01:31 DC 02/04/25 01:31 Vital Signs Date Time Temp Pulse Resp B/P (MAP) Pulse Ox O2 Delivery O2 Flow Rate FiO2 02/04/25 01:33 98.8 64 22 119/86 97 Room Air* 0 02/03/25 23:45 98.8 79 22 129/81 98 Room Air* 0 02/03/25 23:28 98.1 69 17 147/82 98 Room Air 0 We will perform diagnostic labs, advanced imaging and administer medications according to the patient's complaint. Once the results are available, will review and personally interpreted the labs to rule out any acute life- threatening emergency the trach require immediate intervention and treatment. I will then re-evaluate the patient after treatment and diagnostic exams have r eturn to determine whether the patient requires any further testing, can safely be discharged home or need further admission to hospital for additional treatment and evaluation. Labs reviewed CBC is with a normal limits BNP 7 showed a BUN and creatinine of 22 and 1.8. Chest x-ray and rest of the labs are pending BNP 7 reviewed troponins are negative chest x-ray is unremarkable for any acute infiltrate but there is mild pulmonary vascular prominence and there is a defibrillator in place in the left chest Trial of 1 dose of Lasix DC to follow up with his primary care physician Extensive counseling on low-sodium diet weight loss diet exercise and lifestyle modifications. 's present. Medical Decision Making MDM Differential diagnosis: Musculoskeletal pain, volume overload, gastroesophageal reflux disease Rationale: Tests considered and ordered secondary to shared decision making include: Previous outside records reviewed: Old ER visits. Risk of complication and/or morbidity or mortality of patient management: None Medications-Per medication reconciliation Need for hospitalization: Patient does not meet criteria for hospitalization. Need for emergency major/minor surgery: No There are no social concerns with this patient. Prescription drug management Prescriptions will include symptomatic care Patient's prior external medical records from other ER visits were reviewed by me as indicated. Prior testing and results from previous visits were reviewed. Prior tests were taken into account with medical decision making and resource utilization, independent historian/historians were used to obtain complete medical history. I independently interpreted the test that were performed, results were reviewed by me and considered findings on radiology if ordered. Medical management and examination interpretation discussions were had by me with other qualified healthcare professionals as indicated for the patient's care. DX & DISP Disposition: Discharge Departure Impression: Primary Impression: Atypical chest pain Additional Impressions: Mild congestive heart failure, Chronic renal failure (CRF), stage 1, Anxiety, Morbidly obese, Diabetes mellitus, Obstructive sleep apnea syndrome in adult, Cardiac defibrillator in place Condition: Stable Additional Instructions: Patient and the caregiver have been informed of all the diagnostic tests and the imaging conducted during the today's visit to the emergency room and has verbalized understanding of the results I have personally reviewed and interpreted all diagnostic exams performed here in the ER today as well as the vital signs documented by the nursing staff. The patient is now being discharged to home and should follow up with the primary care physician or the specialist as directed by the ER staff. Follow-up with primary care provider in 1 to 2 days. Take medications as d irected here in the emergency room. Okay to continue home medications unless otherwise discussed during your visit in the emergency room today. Return to your nearest emergency room if symptoms worsen or if there is no improvement. Call 911 if you need immediate assistance. Take Tylenol or Motrin [id number] as needed and if no contraindications are present. Increase oral hydration. A wound culture or urine culture was ordered here in the emergency room department please follow-up with primary care provider and advise them to get repeat ports from our facility. If you had any [place] wrap/splints that were applied here, please do not remove them until you see your primary care or specialty. Referrals: JANETT ZENDEJAS MD (PCP) GONSALO ESCOBAR MD Feb 04, 2025 01:10
[2025-02-04 01:46] LABS: APPEARANCE,URINE CLEAR (CLEAR); GLUCOSE, URINE (UA) NEGATIVE (NEGATIVE); LEUKOCYTE ESTERASE ,URINE NEGATIVE Leu/uL (NEGATIVE); NITRATE,URINE NEGATIVE (NEGATIVE); OCCULT BLOOD,URINE NEGATIVE (NEGATIVE)
[2025-02-04 01:50] LABS: ADD UA MICROSCOPIC YES
[2025-02-04 02:37] VITALS: BP 138/80; PULSE 64; RESP 22; TEMP 98.8; O2SAT 99
--- NOTE | 2025-02-04 02:41 | HMCIMG ---
EXAM: CR Chest, 1 view CLINICAL HISTORY: Chest pressure. COMPARISON: Chest radiograph dated 01/04/2025. FINDINGS: The lungs show no infiltrates or other acute findings. No pleural effusion or pneumothorax. The cardiomediastinal silhouette is within normal limits. Left-sided cardiac pacemaker device in place. No acute osseous abnormality. IMPRESSION: No acute cardiopulmonary process is evident. No interval changes. /[place]
--- NOTE | 2025-02-04 07:05 | EKG ---
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
== END 2025-02-04 02:49 | disposition home or self-care (01) ==
LOC: EDH 23:24
DX: I13.0 Hypertensive heart and chronic kidney disease with heart failure and stage 1 through stage 4 chronic kidney disease, or unspecified chronic kidney disease (principal); E11.22 Type 2 diabetes mellitus with diabetic chronic kidney disease; N18.9 Chronic kidney disease, unspecified; I50.9 Heart failure, unspecified; I25.10 Atherosclerotic heart disease of native coronary artery without angina pectoris; R07.89 Other chest pain; E66.01 Morbid (severe) obesity due to excess calories; F41.9 Anxiety disorder, unspecified; Z79.02 Long term (current) use of antithrombotics/antiplatelets; Z79.82 Long term (current) use of aspirin; Z79.899 Other long term (current) drug therapy; Z86.73 Personal history of transient ischemic attack (TIA), and cerebral infarction without residual deficits; Z88.6 Allergy status to analgesic agent; Z95.810 Presence of automatic (implantable) cardiac defibrillator; Z68.41 Body mass index [BMI] 40.0-44.9, adult
CPT/HCPCS: 36415; 71045; 80048; 81001; 82550; 84484; 85025; 93005; 99285

== ENCOUNTER 2025-04-22 08:20 | Inpatient (IN) | payer MEDICAID ==
[~2025-04-22] VITALS: Ht 182.9 cm; Wt 167.4 kg
[2025-04-22 08:47] LABS: IMMATURE GRANULOCYTE ABSOLUTE 0.01 K/uL (0-1); NUCLEATED RED BLOOD CELLS 0.0 % (0.0-0.19); PLATELET COUNT (AUTO) 198 K/uL (130-400); RED BLOOD CELL COUNT(AUTO) 4.27 MIL/uL (4.50-6.20); RED CELL DISTRIBUTION WIDTH 13.6 % (11.0-15.5); WHITE BLOOD COUNT (AUTO) 6.1 K/uL (4.8-10.8)
[2025-04-22 08:59] LABS: INR 1.03 (0.85-1.15)
--- NOTE | 2025-04-22 08:59 | EKG ---
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
[2025-04-22 09:01] LABS: ASPARTATE AMINOTRANSFERASE 26.0 U/L (10-37); CREATININE 1.8 mg/dL (0.5-1.3); GLOMERULAR FILTR. RATE CALC 42.0 mL/min (>90); GLUCOSE,RANDOM 98.0 mg/dL (70-105); SODIUM SERUM 141.0 mmol/L (136-145); TOTAL PROTEIN, SERUM 7.1 g/dL (6.0-8.3); UREA NITROGEN, BLOOD 21.0 mg/dL (7-18)
--- NOTE | 2025-04-22 09:38 | HMCIMG ---
EXAM: CR Chest, single view. CLINICAL HISTORY: Cardiac pacemaker. Shortness of breath. COMPARISON: Prior chest radiograph dated February 04, 2025. FINDINGS: Normal cardiac size, bilateral pulmonary congestion. Left-sided battery pack is identified with pacemaker wires in the right atrium and ventricle. The lungs show no infiltrate or other acute findings. No pleural effusion or pneumothorax. No acute osseous abnormality. IMPRESSION: No acute infiltrates or effusion. Normal cardiac size, bilateral pulmonary congestion. Left-sided battery pack is identified with pacemaker wires in the right atrium and ventricle. Compared to the prior study, there is no significant interval change. /[place]
--- NOTE | 2025-04-22 11:38 | ERN ---
ED Note History of Present Illness Stated Complaint: CHEST TIGHTNESS Chief Complaint: Chest Pain Time Seen by MD: 08:26 Dictation: 60-year-old male with history of diabetes and hypertension presenting to the emergency department with chest pain off over the past few days was seen at [facility] yesterday and discharge. Patient reports symptoms have continued to worsen and his lower extremities are now swollen Allergies: Coded Allergies: ibuprofen (Unverified Allergy, Mild, BLOATING, 04/16/24) INDIGESTION/ACID REFLUX Home Meds Active Scripts Spironolactone (Spironolactone) 25 Mg Tablet, 25 MG PO DAILY, #30 TAB Prov:JAVIER TURCIOS MD 01/06/25 Atorvastatin Calcium (LIPITOR) 40 Mg Tablet, 40 MG PO HS, #30 TAB Prov:JAVIER TURCIOS MD 01/06/25 Hydroxyzine Pamoate (Hydroxyzine Pamoate) 100 Mg Capsule, 100 MG PO Q8 PRN for ANXIETY /INSOMNIA, #30 CAP Prov:SHANAE IBARRA 12/20/24 Albuterol Sulfate (Ventolin Hfa/Proventil Hfa/Proair Hfa) 90 Mcg Puff, 2 PUFF IH Q4H for WHEEZING, #1 INHALER 0 Refills Prov:SHANAE IBARRA 12/15/24 Reported Medications Latanoprost (Latanoprost) 0.005 % Drops, 1 DROP OU HS, ML 0 Refills 01/04/25 Fluticasone Propionate (Fluticasone Propionate) 0.05 % Cream..g., 1 APPL NS DAILY for 30 Days, #60 GM 0 Refills 01/04/25 Lisinopril (Lisinopril) 40 Mg Tablet, 1 TAB PO DAILY for 30 Days, #30 TAB 0 Refills 01/04/25 Hydralazine HCl (Hydralazine HCl) 25 Mg Tablet, 1 TAB PO TIDP PRN for IF SBP GREATER THAN 180 for 30 Days, #90 TAB 0 Refills 01/04/25 Amiodarone HCl (Amiodarone HCl) 200 Mg Tablet, 200 MG PO BID, TAB 09/04/24 Atorvastatin Calcium (LIPITOR) 40 Mg Tablet, 40 MG PO DAILY, TAB 09/04/24 Buspirone HCl (Buspirone HCl) 10 Mg Tablet, 10 MG PO BID, TAB 09/04/24 Eplerenone (Eplerenone) 25 Mg Tablet, 25 MG PO DAILY, TAB 09/04/24 Aspirin (ASPIRIN 81MG CHEW TAB) 81 Mg Tab.chew, 81 MG PO DAILY, TAB.CHEW 09/04/24 Furosemide (Furosemide) 20 Mg Tablet, 20 MG PO DAILY, TAB 09/04/24 Amlodipine Besylate (Amlodipine Besylate) 10 Mg Tablet, 10 MG PO DAILY for 30 Days, #30 TAB 0 Refills 09/04/24 Clopidogrel Bisulfate (Clopidogrel) 75 Mg Tablet, 75 MG PO DAILY, TAB 09/04/24 Metoprolol Succinate (Metoprolol Succinate) 50 Mg Tab.er.24h, 50 MG PO DAILY, TAB 09/04/24 Past Medical History Past Medical History: CVA, Diabetes-Type II, High Cholesterol, Heart Disease, Hypertension Additional Past Medical Hx: cva with residual deficits Surgical History: Pacer/AICD, Other Surgical History Other: stent placement Family History: Negative Social History: Lives with family Review of System Dictation Constitutional: Negative for fever,chills, and weight loss Eyes: Negative for injury, pain,redness, and discharge ENT: Negative for injury,pain or swelling Cardiovascular: Per HPI Respiratory: Per HPI Abdomen/GI: Negative for abdominal pain, nausea, vomiting, diarrhea, and constipation Back: Negative for injury and pain : Negative for injury, bleeding and discharge MS/Extremity: Negative for injury and deformity Skin: Negative for rash, and discoloration Neuro: Per HPI Initial Vital Sign VS Vital Signs Date Time Temp Pulse Resp B/P (MAP) Pulse Ox O2 Delivery O2 Flow Rate FiO2 04/22/25 08:22 97.3 70 22 164/68 96 Room Air 0 04/22/25 08:28 21 Physical Exam Dictation General: awake, alert, obese Head/Face: Normocephalic, atraumatic Eyes: PERRL, EOMI, vision at baseline ENT: oral cavity clear, TMs clear, no signs of infection Neck: Trachea midline, supple, no nuchal rigidity Cardiovascular: RRR, normal S1/S2, No MRGs, no JVD Respiratory: Crackles at the bases bilaterally, no respiratory distress Abdomen: Soft, non-tender, non-distended, normal bowel sounds, no guarding or rebound. Skin: Warm, dry, normal turgor, no rash MS/Extremity: Pulses equal, no cyanosis, neurovascular intact, FROM Neuro: COAx4, GCS 15, strength 5/5, CN 2-12 intact, normal cerebellar exam, normal gait, Psych: Normal behavior, mood, and affect normal Results (Laboratory/Radiology) Laboratory/Radiology Laboratory Tests Test 04/22/25 08:40 White Blood Count 6.1 K/uL (4.8-10.8) Red Blood Count 4.27 MIL/uL (4.50-6.20) L Hemoglobin 13.4 g/dL (14.0-18.0) L Hematocrit 40.0 % (42-54) L Mean Corpuscular Volume 93.7 fL (79-99) Mean Corpuscular Hemoglobin 31.4 pg (27.0-33.0) Mean Corpuscular Hemoglobin Concent 33.5 g/dL (32.0-36.0) Red Cell Distribution Width 13.6 % (11.0-15.5) Platelet Count 198 K/uL (130-400) Mean Platelet Volume 10.1 fL (7.5-10.5) Immature Granulocyte % (Auto) 0.2 % (0-1) Neutrophils (%) (Auto) 54.6 % (40.0-77.0) Lymphocytes (%) (Auto) 32.8 % (21.0-51.0) Monocytes (%) (Auto) 10.1 % (3.0-13.0) Eosinophils (%) (Auto) 1.6 % (0.0-8.0) Basophils (%) (Auto) 0.7 % (0.0-5.0) Neutrophils # (Auto) 3.3 K/uL (1.8-7.7) Lymphocytes # (Auto) 2.0 K/uL (1.0-4.8) Monocytes # (Auto) 0.6 K/uL (0.1-1.0) Eosinophils # (Auto) 0.10 K/uL (0.00-0.70) Basophils # (Auto) 0.04 K/uL (0.00-0.20) Absolute Immature Granulocyte (auto 0.01 K/uL (0-1) Nucleated Red Blood Cells 0.0 % (0.0-0.19) Prothrombin Time 10.9 SEC (9.6-11.6) Prothromb Time International Ratio 1.03 (0.85-1.15) Activated Partial Thromboplast Time 25.3 SEC (26.3-35.5) L Sodium Level 141 mmol/L (136-145) Potassium Level 3.7 mmol/L (3.5-5.1) Chloride Level 104 mmol/L (101-111) Carbon Dioxide Level 29 mmol/L (21-32) Blood Urea Nitrogen 21 mg/dL (7-18) H Creatinine 1.8 mg/dL (0.5-1.3) H Glomerular Filtration Rate Calc 42 mL/min (>90) Random Glucose 98 mg/dL (70-105) Total Calcium 8.7 mg/dL (8.5-10.1) Total Bilirubin 0.5 mg/dL (0.2-1.0) Direct Bilirubin 0.1 mg/dL (0.0-0.3) Aspartate Amino Transf (AST/SGOT) 26 U/L (10-37) Alanine Aminotransferase (ALT/SGPT) 43 U/L (12-78) Alkaline Phosphatase 109 U/L (50-136) Troponin I High Sensitivity 32 ng/L (4-75) B-Type Natriuretic Peptide 107 pg/mL (0-100) H Total Protein 7.1 g/dL (6.0-8.3) Albumin 3.4 g/dL (3.5-5.0) L Labs Reviewed?: Yes EKG Comment: Heart rate 65 normal sinus rhythm no STEMI or STEMI equivalent ED Course ED Course Orders Procedure Category Date Status Time B-Type Natriuretic LAB 04/22/25 Complete Peptide 08:26 12 Lead Ekg Tracing- EKG 04/22/25 Complete Technical 08:26 Basic Metabolic Panel LAB 04/22/25 Complete 08:26 Cbc With Differential LAB 04/22/25 Complete 08:26 Hepatic Function Panel LAB 04/22/25 Complete 08:26 Pt And Ptt LAB 04/22/25 Complete 08:26 Troponin I High LAB 04/22/25 Complete Sensitivity 08:26 Chest 1vw RAD 04/22/25 Resulted 08:26 Furosemide 40mg Vial PHA 04/22/25 Complete (Lasix 40mg Vial) 08:30 Hydralazine 20mg Inj PHA 04/22/25 Complete (Apresoline 20mg In 08:30 Current Medications Medications (Trade) Dose Ordered Sig/Uriah Route PRN Reason Start Time Stop Time Status Last Admin Dose Admin Furosemide (LASix 40MG VIAL) 40 mg ONCE ONCE IV 04/22/25 08:30 04/22/25 08:31 DC 04/22/25 10:03 Hydralazine HCl (APRESOLine 20MG INJ) 10 mg ONCE ONCE IV 04/22/25 08:30 04/22/25 08:31 DC Vital Signs Date Time Temp Pulse Resp B/P (MAP) Pulse Ox O2 Delivery O2 Flow Rate FiO2 04/22/25 10:03 134/83 04/22/25 09:12 87 20 145/82 99 Room Air* 0 21 04/22/25 08:28 97.3 70 20 164/68 96 Room Air* 0 21 04/22/25 08:22 97.3 70 22 164/68 96 Room Air 0 Medical Decision Making MDM MDM: Differential diagnosis: Rationale: Tests considered and ordered secondary to shared decision making include: labs, ECG and radiology Previous outside records reviewed: Old ER visits. Risk of complication and/or morbidity or mortality of patient management: None Medications-Per medication reconciliation Need for hospitalization: Patient does meet criteria for hospitalization. Need for emergency major/minor surgery: No There are no social concerns with this patient. Prescription drug management Prescriptions will include symptomatic care Patient's prior external medical records from other ER visits were reviewed by me as indicated. Prior testing and results from previous visits were reviewed. Prior tests were taken into account with medical decision making and resource utilization, independent historian/historians were used to obtain complete medical history. I independently interpreted the test that were performed, results were reviewed by me and considered findings on radiology if ordered. Medical management and examination interpretation discussions were had by me with other qualified healthcare professionals as indicated for the patient's care. 60-year-old male multiple medical problems heart score moderate of six with chest pain initial workup stable admitting for ACS rule out DX & DISP Disposition: Inpatient Departure Impression: Primary Impression: Unstable angina Condition: Stable Referrals: JANETT ZENDEJAS MD (PCP) ARJUN CLEVELAND MD Apr 22, 2025 11:38
[2025-04-22] MEDS ORDERED: MAGNESIUM 2GM PREMIX 50ML 50 ML IV SCH (12:00)
[2025-04-22] MEDS ORDERED: HYDR-3420 PO (12:09)
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
[2025-04-22] MEDS ORDERED: PoTASSium chloRIDE 20MEQ ER 20 MEQ ERTAB PO PRN (13:00)
[2025-04-22] MEDS ORDERED: PoTASSium chl 10% ELIXIR 20MEQ 20 MEQ/15 ML UDCUP PO PRN (13:00)
--- NOTE | 2025-04-22 13:33 | HMCIMG ---
US VENOUS DOPPLER BILATERAL REASON: lower extremity edema, r/o DVT bilaterally COMPARISON: None Technique: Bilateral venous doppler ultrasound was performed with spectral analysis and color flow imaging technique. FINDINGS: There is a normal appearance of the common femoral, deep femoral, the profunda femoris and popliteal veins. Proximal calf veins appear normal as well. There is normal response to compression and augmentation. There is no evidence of deep venous thrombosis. IMPRESSION: Normal bilateral lower extremity venous Doppler ultrasound.
--- NOTE | 2025-04-22 13:52 | NUR ---
DCP; HOME Pt states he shares an apt with his provider Marni Dumont [phone]. Pt on SSD/ Medicaid and food stamp assistance., pt requires assistance with his ADLS, meal prep, home management and transportation. Pt has a w/c, shower chair, bsc, CPAP. he uses. currently no HH or HD services. PCP is Alexx Briscoe and uses [facility] for rx. Pt denies dc needs and will return home at de. Addendum: 04/22/25 at 1400 by TRICIA SONI SS Amended: Links added.
--- NOTE | 2025-04-22 14:15 | NUR ---
ATTEMPTED TO CALL REPORT AT THIS TIME; PENDING CALL BACK
--- NOTE | 2025-04-22 14:36 | NUR ---
ATTEMPTED TO CALL FOR REPORT SECOND TIME; PENDING CALL BACK
--- NOTE | 2025-04-22 14:49 | NUR ---
SPOKE WITH HUGH TO GIVE REPORT AT THIS TIME.
--- NOTE | 2025-04-22 14:55 | CONS ---
[facility] CARDIOLOGY CONSULTATION REPORT Cardiology consultation note dictated for Isabell Gonzales MD Primary scouring pads supervisor: Mario Tanner MD Date Patient Seen: Apr 22, 2025 Requesting Physician: Michael Green MD Reason for Consultation: Chest pain History of Present Illness: This is a 60-year-old male with a past medical history of hypertension, dyslipidemia, NSTEMI with normal coronaries in 2020, monomorphic ventricular tachycardia inducible at EP study status post PCD implant 10/2020, LVEF of 60- 65%, normal LV segmental wall motion on 01/04/2025, chronic venous insufficiency and possible May-Thurner syndrome s/p 16 x 150 mm Medtronic venous self expanding stent to the left common iliac and external iliac vein, patent [place] ovale with positive bubble study in 07/2019, 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 Cardiology has been consulted for chest pressure. The patient endorsed intermittent, midsternal and left sided chest discomfort described as a tightness that can last anywhere from a few seconds to 5 minutes. Symptoms are exacerbated by movement and palpation which he attributes to his small wheelchair. [place] [facility] [place] with the same symptoms, troponin levels were 0.07 and 0.09. Cardiac enzyme has been negative x1, next lab draw 1500 and 2100. EKG demonstrated normal sinus rhythm with a heart rate of 65bpm without acute ischemia noted. Past Medical History: As per HPI and summarized below Past Surgical History: Leg surgery PCD implant 10/2020 Family History: The patient's mother had unknown heart problems. Social History: The patient lives alone and has a provider. Habits: The patient denies alcohol, tobacco, or illicit drug use. Home Meds: Per last visit at the [facility] on 03/23/2025 ALPRAZolam 0.5 MG Tablet 1 tablet Orally Twice a day. Latanoprost 0.005 % Solution 1 drop into affected eye in the evening Ophthalmic Once a day. Flonase Allergy Relief. hydrOXYzine Pamoate 100 MG Capsule 1 capsule at bedtime as needed Orally every 8 hours. Tylenol Extra Strength 500 MG Tablet 1 tablet as needed Orally every 6 hrs. hydrALAZINE HCl 10 MG Tablet 1 tablet with food Orally 2 times a day. Lisinopril 40 MG Tablet 1 tablet Orally Once a day. Atorvastatin Calcium 40 MG Tablet 1 tablet Orally Once a day. Amiodarone HCl 200 MG Tablet 1 tablet Orally Twice a day. Metoprolol Succinate ER 50 MG Tablet Extended Release 24 Hour 1 tablet Orally Once a day. Furosemide 20 MG Tablet 1 tablet Orally Once a day. amLODIPine Besylate 10 MG Tablet 1 tablet Orally Once a day. Clopidogrel Bisulfate 75 MG Tablet 1 tablet Orally Once a day. Eplerenone 25 MG Tablet 1 tablet Orally Once a day. Cephalexin 250 MG Capsule 1 capsule Orally 3 times a day. Current Meds: Current Medications Medications Dose Ordered Sig/Uriah Start Time Stop Time Status Last Admin Acetaminophen 650 mg Q6H PRN 04/22/25 12:00 05/22/25 11:59 Hydralazine HCl 10 mg Q6H PRN 04/22/25 12:00 05/22/25 11:59 Ipratropium [place] 0.5 mg Q6H PRN 04/22/25 12:00 05/22/25 11:59 Magnesium Sulfate 50 ml @ 0 mls/hr PROTOCOL 04/22/25 12:00 05/22/25 11:59 Vitamin B Complex/ Vit C/Folic Acid 1 cap DAILY 04/23/25 09:00 05/23/25 08:59 Alprazolam 0.5 mg BID PRN 04/22/25 12:00 05/22/25 11:59 Aspirin 81 mg DAILY 04/23/25 09:00 05/23/25 08:59 Furosemide 20 mg Q8H 04/22/25 18:00 05/22/25 17:59 Amiodarone HCl 200 mg BID 04/22/25 21:00 05/22/25 20:59 Amlodipine Besylate 10 mg DAILY 04/23/25 09:00 05/23/25 08:59 Lisinopril 40 mg DAILY 04/23/25 09:00 05/23/25 08:59 Potassium Chloride 100 ml @ 100 mls/hr AD PRN 04/22/25 13:00 05/22/25 12:59 Potassium Chloride 10 meq AD PRN 04/22/25 13:00 05/22/25 12:59 Enoxaparin Sodium 30 mg DAILY 04/23/25 09:00 05/23/25 08:59 Atorvastatin Calcium 40 mg DAILY 04/23/25 09:00 05/23/25 08:59 Clopidogrel Bisulfate 75 mg DAILY 04/23/25 09:00 05/23/25 08:59 Hydralazine HCl 10 mg BID 04/22/25 21:00 05/22/25 20:59 Metoprolol Succinate 50 mg DAILY 04/23/25 09:00 05/23/25 08:59 Buspirone HCl 10 mg BID 04/22/25 21:00 05/22/25 20:59 Home Med (Eplerenone 25 MG) DAILY 04/23/25 09:00 05/23/25 08:59 Potassium Chloride 10 meq AD PRN 04/22/25 14:00 05/22/25 12:59 Review of Systems: CONST: No fever, fatigue, or weight changes. EYES: No recent vision problems. ENT: No congestion, ear pain, or sore throat. C/V: Admits to midsternal and left-sided chest discomfort with palpation and movement. Denies palpations. RESP: No cough, congestion, wheezing or shortness of breath. GI: No abdominal pain, nausea, vomiting, constipation, or diarrhea. : No incontinence or dysuria. SKIN: No rash. NEURO: No headache, focal numbness or weakness, dizziness, or seizures. PSYCH: No depression or anxiety. HEME: No abnormal bruising or bleeding. LYMPH: No swollen glands. Physical Examination: GENERAL: No acute distress. HEAD: Normal with no signs of head trauma. EYES: PERRLA, EOMI, conjunctiva and sclera normal. ENT: Hearing grossly intact, normal oropharynx. NECK: Supple without JVD. There is no tenderness, lymphadenopathy, or masses. No thyromegaly. Normal carotid upstrokes without bruits. LUNGS: Clear breath sounds bilaterally. No wheezes, or rhonchi. HEART: Normal rate and rhythm. Normal S1 and S2 without murmurs, gallop or rub. VASC: BLE with 2+ edema. ABD: Bowel sounds normal, soft, nontender, no masses, no organomegaly. No audible bruits. : Not examined LYMPH: No lymphadenopathy noted. EXT: No clubbing or cyanosis SKIN: No rashes or lesions noted. NEURO: Awake, alert, and oriented x3. No focal sensory or strength deficits noted. Vital Signs (last 8hr) Date Time Temp Pulse Resp B/P (MAP) Pulse Ox O2 Delivery O2 Flow Rate FiO2 04/22/25 14:16 98.1 54 20 139/73 95 Room Air* 0 21 04/22/25 10:03 134/83 04/22/25 09:12 87 20 145/82 99 Room Air* 0 21 04/22/25 08:28 97.3 70 20 164/68 96 Room Air* 0 21 04/22/25 08:22 97.3 70 22 164/68 96 Room Air 0 Laboratory: Hematology Labs: Test 04/22/25 08:40 Range/Units White Blood Count 6.1 4.8-10.8 K/uL Red Blood Count 4.27 L 4.50-6.20 MIL/uL Hemoglobin 13.4 L 14.0-18.0 g/dL Hematocrit 40.0 L 42-54 % Mean Corpuscular Volume 93.7 79-99 fL Mean Corpuscular Hemoglobin 31.4 27.0-33.0 pg Mean Corpuscular Hemoglobin Concent 33.5 32.0-36.0 g/dL Red Cell Distribution Width 13.6 11.0-15.5 % Platelet Count 198 130-400 K/uL Mean Platelet Volume 10.1 7.5-10.5 fL Immature Granulocyte % (Auto) 0.2 0-1 % Neutrophils (%) (Auto) 54.6 40.0-77.0 % Lymphocytes (%) (Auto) 32.8 21.0-51.0 % Monocytes (%) (Auto) 10.1 3.0-13.0 % Eosinophils (%) (Auto) 1.6 0.0-8.0 % Basophils (%) (Auto) 0.7 0.0-5.0 % Neutrophils # (Auto) 3.3 1.8-7.7 K/uL Lymphocytes # (Auto) 2.0 1.0-4.8 K/uL Monocytes # (Auto) 0.6 0.1-1.0 K/uL Eosinophils # (Auto) 0.10 0.00-0.70 K/uL Basophils # (Auto) 0.04 0.00-0.20 K/uL Absolute Immature Granulocyte (auto 0.01 0-1 K/uL Nucleated Red Blood Cells 0.0 0.0-0.19 % Chemistry Labs: Test 04/22/25 08:40 Range/Units Sodium Level 141 136-145 mmol/L Potassium Level 3.7 3.5-5.1 mmol/L Chloride Level 104 101-111 mmol/L Carbon Dioxide Level 29 21-32 mmol/L Blood Urea Nitrogen 21 H 7-18 mg/dL Creatinine 1.8 H 0.5-1.3 mg/dL Glomerular Filtration Rate Calc 42 >90 mL/min Random Glucose 98 70-105 mg/dL Total Calcium 8.7 8.5-10.1 mg/dL Magnesium Level 1.90 1.80-2.40 mg/dL Total Bilirubin 0.5 0.2-1.0 mg/dL Direct Bilirubin 0.1 0.0-0.3 mg/dL Aspartate Amino Transf (AST/SGOT) 26 10-37 U/L Alanine Aminotransferase (ALT/SGPT) 43 12-78 U/L Alkaline Phosphatase 109 50-136 U/L Troponin I High Sensitivity 32 4-75 ng/L B-Type Natriuretic Peptide 107 H 0-100 pg/mL Total Protein 7.1 6.0-8.3 g/dL Albumin 3.4 L 3.5-5.0 g/dL Coagulation Labs: Test 04/22/25 08:40 Range/Units Prothrombin Time 10.9 9.6-11.6 SEC Prothromb Time International Ratio 1.03 0.85-1.15 Activated Partial Thromboplast Time 25.3 L 26.3-35.5 SEC Diagnostics / Radiology: Impression and Plan: Atypical chest pain Hypertension Dyslipidemia NSTEMI with normal coronaries in 2020 Monomorphic ventricular tachycardia inducible at EP study status post PCD implant 10/2020 LVEF of 60-65%, normal LV segmental wall motion on 01/04/2025 Chronic venous insufficiency and possible May-Thurner syndrome s/p 16 x 150 mm Medtronic venous self expanding stent to the left common iliac and external iliac vein Patent [place] ovale with positive bubble study in 07/2019 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
[2025-04-22 15:20] VITALS: BP 145/75; PULSE 56; RESP 20; TEMP 98.4
[2025-04-22 16:26] LABS: CREATINE KINASE, TOTAL 339.0 U/L (21-232)
--- NOTE | 2025-04-22 16:30 | HMCSR ---
APPROVED REPORT EXAM: LIMITED Two-dimensional and M-mode echocardiogram. INDICATION ICD: assess WMA Chest Pain 2D Dimensions RVDd5.9 cmLVEF(%)74.6 (>50%)LVED Vol(simp.)114.0 mL IVSd0.9 (0.7-1.1cm)FS(%)44 %LVES Vol(simp.)48.0 mL LVDd5.1 (3.8-5.6cm)LA (2D)3.8 (1.6-4.0cm)LVEF(%, simp.)58 % PWd1.1 (0.7-1.1cm)Ao Root(2D)3.1 (2.0-3.7cm)LA ESV INDEX (BP)34.88 mL/m2 LVDs2.9 (2.5-4.0cm)LVOT diam2.3 (1.8-2.4cm) Deformation Strain Apical 4-15.7 % Apical 2-19.1 % Apical 3-18.0 % Global Strain-17.6 % Left Ventricle Left ventricular cavity size is normal. No regional wall motion abnormalities noted. There is normal left ventricular wall thickness. LVEF is 55-60%. Right Ventricle The right ventricle is moderately to severely dilated. Atria The left atrium size is normal. The right atrium is moderately dilated. Aortic Valve The aortic valve is normal in structure and function. Mitral Valve The mitral valve is normal in structure and function. Mild posterior mitral annular calcification. Tricuspid Valve The tricuspid valve is normal in structure and function. Pulmonic Valve Pulmonic valve is not well visualized. Great Vessels The aortic root is normal in size. The IVC was not visualized. Pericardium No pericardial effusion. Other Information Quality : Limited/Follow-upRhythm : NSR Conclusion This is a limited echocardiogram study. LVEF is 55-60%. No regional wall motion abnormalities noted. No pericardial effusion.
[2025-04-22 20:00] VITALS: BP 112/53; PULSE 54; RESP 20; TEMP 98.2; O2SAT 98
[2025-04-22 21:23] LABS: CREATINE KINASE, TOTAL 294.0 U/L (21-232); CREATININE 1.8 mg/dL (0.5-1.3); GLOMERULAR FILTR. RATE CALC 42.0 mL/min (>90); GLUCOSE,RANDOM 130.0 mg/dL (70-105); SODIUM SERUM 143.0 mmol/L (136-145); UREA NITROGEN, BLOOD 24.0 mg/dL (7-18)
[2025-04-22] MEDS: PoTASSium chloRIDE 10MEQ SR 10 MEQ/TAB TAB.SR.24H PO PRN (23:22)
[2025-04-22 23:42] VITALS: BP 116/60; PULSE 51; RESP 20; TEMP 98
[2025-04-23 04:00] VITALS: BP 128/65; PULSE 47; RESP 22; TEMP 97.6
[2025-04-23 07:42] VITALS: BP 121/75; PULSE 60; RESP 18; TEMP 97.9
[2025-04-23] MEDS: EPLERENONE 25 MG PO SCH (09:00)
[2025-04-23] MEDS: amLODIPine 5 MG TAB PO SCH (09:11)
[2025-04-23] MEDS: ENOXAPARIN SODIUM 30 MG/0.3 ML SQ SCH (09:12)
[2025-04-23] MEDS: Vitamin B Complex/Vit C/Folic Acid PO SCH (09:14)
[2025-04-23] MEDS: LISINOPRIL 40 MG TABLET PO SCH (09:16)
[2025-04-23] MEDS: ASPIRIN 81 MG EC TAB PO SCH (09:16)
--- NOTE | 2025-04-23 11:03 | PN ---
[facility] PROGRESS NOTE Date of Service: Apr 23, 2025 Time of Service: 10:56 SUBJECTIVE: 04/23 Patient is undergoing IV diuresis. Net negative 960 mL REVIEW OF SYSTEMS CONSTITUTIONAL: Denies fevers, chills, or night sweats. No unintentional weight loss reported. NEUROLOGICAL: Denies headache, amaurosis fugax, motor weakness, sensory deficit, vertigo/spinning sensation, gait abnormalities, or tremors. ENT: No hearing loss, otalgia, otorrhea, rhinitis, rhinorrhea, hoarseness, or sore throat. CARDIOVASCULAR: chest tightness and chest pressure PULMONARY: Denies any shortness of breath, cough, phlegm/sputum, hemoptysis, pleuritic chest pain. SLEEP: Denies morning headaches, daytime somnolence or napping. Denies difficulty falling asleep, staying asleep, waking from sleep. Denies knowledge of snoring. GASTROINTESTINAL: Denies any type of dysphagia to either liquids or solids. Denies nausea, vomiting, pyrosis, early satiety, abdominal pain, diarrhea, constipation, or changes in stool consistency or caliber. Denies coffee-ground emesis, hematemesis, hematochezia, or melanotic stools. GENITOURINARY: Denies frequency, urgency, nocturia, hematuria or incontinence (Storage/Irritative symptoms.) Low urinary stream, straining to void, urinary intermittency or hesitancy, splitting of the voiding stream, terminal dribbling. ENDOCRINOLOGIC: Denies polyuria, polydipsia, polyphagia or heat/cold intolerances. HEMATOLOGIC: Denies thrombophilia/previous clots, or coagulopathy/bleeding disorders. ONCOLOGIC: Denies personal history of malignancy. DERMATOLOGIC: progressive bilateral lower extremity swelling PSYCHIATRIC: Denies any suicidal or homicidal ideation. Denies hallucinations. PHYSICAL EXAM GENERAL APPEARANCE: The patient is awake, alert, and oriented, in no acute cardiopulmonary distress. NEUROLOGICAL: Cranial nerves II-XII grossly intact. Motor is 5/5 in bilateral upper and lower extremities proximal to distal. No sensory deficits. HEENT: Face is symmetric. Pupils are equal and reactive. Extraocular movements are intact. NECK: Supple. No JVD. No thyromegaly. No submental, submandibular, pre- /postauricular, occipital or supraclavicular lymphadenopathy. CHEST: Normal chest expansion. No Telemetry. LUNGS: Absence of any rales, rhonchi or any wheezing. CARDIOVASCULAR: Regular. S1 and S2 normal. No appreciable rubs, murmurs or gallops. ABDOMEN: Soft, nontender, and nondistended. There is no rebound, voluntary guarding, or rigidity. : Deferred. No [place]. EXTREMITIES: Non-edematous and not cyanotic. No clubbing. Good capillary refill. SKIN: No skin breakdown. Vital Signs (last 8hr) Date Time Temp Pulse Resp B/P (MAP) Pulse Ox O2 Delivery O2 Flow Rate FiO2 04/23/25 09:13 60 121/75 04/23/25 07:42 97.9 60 18 121/75 98 Room Air 04/23/25 04:00 97.5 47 22 128/65 98 Room Air LABS: Laboratory: Test 04/23/25 05:24 04/22/25 20:45 04/22/25 08:40 Range/Units Whole Blood Glucose 102 70-110 MG/DL Sodium Level 143 136-145 mmol/L Potassium Level 3.6 3.5-5.1 mmol/L Chloride Level 105 101-111 mmol/L Carbon Dioxide Level 28 21-32 mmol/L Blood Urea Nitrogen 24 H 7-18 mg/dL Creatinine 1.8 H 0.5-1.3 mg/dL Glomerular Filtration Rate Calc 42 >90 mL/min Random Glucose 130 H 70-105 mg/dL Total Calcium 8.5 8.5-10.1 mg/dL Magnesium Level 2.00 1.80-2.40 mg/dL Total Creatine Kinase 294 H 21-232 U/L Troponin I High Sensitivity 32.3 4-75 ng/L White Blood Count 6.1 4.8-10.8 K/uL Red Blood Count 4.27 L 4.50-6.20 MIL/uL Hemoglobin 13.4 L 14.0-18.0 g/dL Hematocrit 40.0 L 42-54 % Mean Corpuscular Volume 93.7 79-99 fL Mean Corpuscular Hemoglobin 31.4 27.0-33.0 pg Mean Corpuscular Hemoglobin Concent 33.5 32.0-36.0 g/dL Red Cell Distribution Width 13.6 11.0-15.5 % Platelet Count 198 130-400 K/uL Mean Platelet Volume 10.1 7.5-10.5 fL Immature Granulocyte % (Auto) 0.2 0-1 % Neutrophils (%) (Auto) 54.6 40.0-77.0 % Lymphocytes (%) (Auto) 32.8 21.0-51.0 % Monocytes (%) (Auto) 10.1 3.0-13.0 % Eosinophils (%) (Auto) 1.6 0.0-8.0 % Basophils (%) (Auto) 0.7 0.0-5.0 % Neutrophils # (Auto) 3.3 1.8-7.7 K/uL Lymphocytes # (Auto) 2.0 1.0-4.8 K/uL Monocytes # (Auto) 0.6 0.1-1.0 K/uL Eosinophils # (Auto) 0.10 0.00-0.70 K/uL Basophils # (Auto) 0.04 0.00-0.20 K/uL Absolute Immature Granulocyte (auto 0.01 0-1 K/uL Nucleated Red Blood Cells 0.0 0.0-0.19 % Prothrombin Time 10.9 9.6-11.6 SEC Prothromb Time International Ratio 1.03 0.85-1.15 Activated Partial Thromboplast Time 25.3 L 26.3-35.5 SEC Total Bilirubin 0.5 0.2-1.0 mg/dL Direct Bilirubin 0.1 0.0-0.3 mg/dL Aspartate Amino Transf (AST/SGOT) 26 10-37 U/L Alanine Aminotransferase (ALT/SGPT) 43 12-78 U/L Alkaline Phosphatase 109 50-136 U/L B-Type Natriuretic Peptide 107 H 0-100 pg/mL Total Protein 7.1 6.0-8.3 g/dL Albumin 3.4 L 3.5-5.0 g/dL Current Medications Medications (Trade) Dose Ordered Sig/Uriah Route PRN Reason Start Time Stop Time Status Last Admin Dose Admin Acetaminophen (TYLenol 325MG TAB) 650 mg Q6H PRN PO MILD PAIN (1-3) 04/22/25 12:00 05/22/25 11:59 Alprazolam (XANax 0.5MG) 0.5 mg BID PRN PO ANXIETY/AGITATION 04/22/25 12:00 05/22/25 11:59 04/22/25 19:04 0.5 MG Amiodarone HCl (pacERONE 200MG) 200 mg BID PO 04/22/25 21:00 05/22/25 20:59 04/23/25 09:12 200 MG Amlodipine Besylate (NorvASC 5MG TAB) 10 mg DAILY PO 04/23/25 09:00 05/23/25 08:59 04/23/25 09:11 10 MG Aspirin (Aspirin 81mg Ec Tab) 81 mg DAILY PO 04/23/25 09:00 05/23/25 08:59 04/23/25 09:16 81 MG Atorvastatin Calcium (LIPItor 40MG) 40 mg DAILY PO 04/23/25 09:00 05/23/25 08:59 04/23/25 09:15 40 MG Buspirone HCl (BUspar) 10 mg BID PO 04/22/25 21:00 05/22/25 20:59 04/23/25 09:13 10 MG Clopidogrel Bisulfate (plaVIX 75MG) 75 mg DAILY PO 04/23/25 09:00 05/23/25 08:59 04/23/25 09:15 75 MG Enoxaparin Sodium (Lovenox) 30 mg DAILY SQ 04/23/25 09:00 05/23/25 08:59 04/23/25 09:12 30 MG Furosemide (LASix 20MG VIAL) 20 mg BID IV 04/22/25 21:00 05/22/25 17:59 04/23/25 09:16 20 MG Furosemide (LASix 20MG VIAL) 20 mg Q8H IV 04/22/25 18:00 04/22/25 16:36 DC Home Med (Home Medication) (Eplerenone 25 MG) DAILY PO 04/23/25 09:00 05/23/25 08:59 Hydralazine HCl (APRESOLine 10MG TAB) 10 mg BID PO 04/22/25 21:00 05/22/25 20:59 04/23/25 09:13 10 MG Hydralazine HCl (APRESOLine 20MG INJ) 10 mg Q6H PRN IV ADMINISTER FOR SBP > 170 04/22/25 12:00 05/22/25 11:59 Ipratropium [place] (AtrovENT UD) 0.5 mg Q6H PRN IH SHORTNESS OF BREATH 04/22/25 12:00 05/22/25 11:59 Lisinopril (Prinivil 40mg) 40 mg DAILY PO 04/23/25 09:00 05/23/25 08:59 04/23/25 09:16 40 MG Magnesium Sulfate 50 ml @ 0 mls/hr PROTOCOL IV 04/22/25 12:00 05/22/25 11:59 Metoprolol Succinate (TopROL XL) 50 mg DAILY PO 04/23/25 09:00 05/23/25 08:59 04/23/25 09:15 50 MG Potassium Chloride 100 ml @ 100 mls/hr AD PRN IV POTASSIUM PROTOCOL 04/22/25 12:00 04/22/25 12:50 DC Potassium Chloride 100 ml @ 100 mls/hr AD PRN IV POTASSIUM PROTOCOL 04/22/25 13:00 05/22/25 12:59 Potassium Chloride (K-Dur 10meq Sr Tab) 10 meq AD PRN PO POTASSIUM PROTOCOL 04/22/25 14:00 05/22/25 12:59 04/23/25 01:43 10 MEQ Potassium Chloride (K-Dur/Klor-Con 20meq) 10 meq AD PRN PO POTASSIUM PROTOCOL 04/22/25 13:00 04/22/25 13:36 DC Potassium Chloride (KCl 10% Elixir 20meq/15ml) 10 meq AD PRN PO POTASSIUM PROTOCOL 04/22/25 13:00 05/22/25 12:59 Vitamin B Complex/ Vit C/Folic Acid (Nephrovite Tablet) 1 cap DAILY PO 04/23/25 09:00 05/23/25 08:59 04/23/25 09:14 1 CAP DIAGNOSTICS / RADIOLOGY: [ ] ASSESSMENT: Acute On chronic diastolic heart failure exacerbation, POA Atypical chest pressure, POA Underlying history of hypertension, POA Right hand paresthesias ongoing x1 week, POA Prior history of pontine CVA (2022) w/ history of AVM, POA Patent Foramen ovale, POA 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, POA History of hospitalization in [facility] [place] in 05/07 for V-tach storm, POA History of normal coronary angiogram on 2020, POA Previous ICD implantation, POA chronic kidney disease stage III, POA Untreated obstructive sleep apnea, POA Chronic venous insufficiency lower extremities with venous stasis dermatitis of the left lower extremity, POA Type 2 diabetes POA Hyperlipidemia, POA Obesity, POA PLAN: Monitor off antibiotics for signs of infection Trend WBCs Follow-up cultures O2 nasal cannula as needed Continue aspirin, Plavix, atorvastatin Continue amlodipine, lisinopril, metoprolol Continue eplerenone and amiodarone Follow up with Cardiology, appreciate assistance -Trend troponin, if negative no further workup warranted -recommend Lasix p.o. 40 mg b.i.d. upon discharge Monitor blood pressure NPO for now Clear liquid diet Diabetic diet No need for GI prophylaxis Continue Lasix IV, monitor creatinine for worsening renal function Trend a.m. BMP Replete electrolytes as necessary DVT prophylaxis with Lovenox Trend a.m. CBC Full code Case was discussed with patient's nurse at bedside Attention time greater than 30 minutes ISRAEL DUNNE IV, MD Apr 23, 2025 11:02
[2025-04-23 11:34] VITALS: PULSE 54; RESP 16; O2SAT 98
[2025-04-23 11:56] LABS: NUCLEATED RED BLOOD CELLS 0.0 % (0.0-0.19); PLATELET COUNT (AUTO) 203 K/uL (130-400); RED BLOOD CELL COUNT(AUTO) 4.37 MIL/uL (4.50-6.20); RED CELL DISTRIBUTION WIDTH 13.6 % (11.0-15.5); WHITE BLOOD COUNT (AUTO) 4.9 K/uL (4.8-10.8)
[2025-04-23 12:07] LABS: CREATININE 1.9 mg/dL (0.5-1.3); GLOMERULAR FILTR. RATE CALC 39.0 mL/min (>90); GLUCOSE,RANDOM 141.0 mg/dL (70-105); SODIUM SERUM 142.0 mmol/L (136-145); UREA NITROGEN, BLOOD 24.0 mg/dL (7-18)
[2025-04-23 12:15] VITALS: BP 132/72; PULSE 72; RESP 18; TEMP 97.6
[2025-04-23 13:37] LABS: EOSINOPHILS % (MANUAL) 5 % (1-6); LYMPHOCYTES % (MANUAL) 28 % (22-44); MAN.DIFF COMMENT-IMPRESSION MANUAL DIFFERENTIAL; MONOCYTES % (MANUAL) 5 % (2-9); PLATELET MORPHOLOGY COMMENT ADEQUATE; REACTIVE LYMPHOCYTES 3 % (0-0); SEGMENTED NEUTROPHILS % 59 % (40-70)
--- NOTE | 2025-04-23 14:40 | DS ---
Discharge Summary Hospital Course Summary: Patient with ICD defibrillator presented to ED due to increased swelling in lower extremities. Patient found to have bilateral pulmonary congestion and admitted for further evaluation of nonresolving chest pressure. Patient underwent IV diuresis. Cardiac enzymes were observed to be negative and remained negative with subsequent lab draw. Final Cardiology Recommendations: -Resume home medications -If next troponin is negative, no further work-up warranted -recommend to go back to Lasix 40mg po bid upon discharge Repeat troponin remained negative. Decision was made to discharge patient for further recovery at home under care of at-home provider. Follow up with cardiology. Medications as per med rec. 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, POA History of hospitalization in [place] in 05/07 for V-tach storm, POA History of normal coronary angiogram on 2020, POA Previous ICD implantation, POA chronic kidney disease stage III, POA Untreated obstructive sleep apnea, POA Chronic venous insufficiency lower extremities with venous stasis dermatitis of the left lower extremity, POA Type 2 diabetes POA Hyperlipidemia, POA Obesity, POA PLAN: Monitor off antibiotics for signs of infection Trend WBCs Follow-up cultures O2 nasal cannula as needed Continue aspirin, Plavix, atorvastatin Continue amlodipine, lisinopril, metoprolol Continue eplerenone and amiodarone Follow up with Cardiology, appreciate assistance -Trend troponin, if negative no further workup warranted -recommend Lasix p.o. 40 mg b.i.d. upon discharge Monitor blood pressure NPO for now Clear liquid diet Diabetic diet No need for GI prophylaxis Continue Lasix IV, monitor creatinine for worsening renal function Trend a.m. BMP Replete electrolytes as necessary DVT prophylaxis with Lovenox Trend a.m. CBC Full code Case was discussed with patient's nurse at bedside Attention time greater than 30 minutes Home Medications: Active Scripts Spironolactone (Spironolactone) 25 Mg Tablet, 25 MG PO DAILY, #30 TAB Prov:JAVIER TURCIOS MD 01/06/25 Atorvastatin Calcium (LIPITOR) 40 Mg Tablet, 40 MG PO HS, #30 TAB Prov:JAVIER TURCIOS MD 01/06/25 Hydroxyzine Pamoate (Hydroxyzine Pamoate) 100 Mg Capsule, 100 MG PO Q8 PRN for ANXIETY /INSOMNIA, #30 CAP Prov:SHANAE IBARRA 12/20/24 Albuterol Sulfate (Ventolin Hfa/Proventil Hfa/Proair Hfa) 90 Mcg Puff, 2 PUFF IH Q4H for WHEEZING, #1 INHALER 0 Refills Prov:SHANAE IBARRA 12/15/24 Reported Medications Hydralazine Hcl (APRESOLINE) 10 Mg Tablet, 10 MG PO BID, TAB 04/22/25 Latanoprost (Latanoprost) 0.005 % Drops, 1 DROP OU HS, ML 0 Refills 01/04/25 Fluticasone Propionate (Fluticasone Propionate) 0.05 % Cream..g., 1 APPL NS DAILY for 30 Days, #60 GM 0 Refills 01/04/25 Lisinopril (Lisinopril) 40 Mg Tablet, 1 TAB PO DAILY for 30 Days, #30 TAB 0 Refills 01/04/25 Amiodarone HCl (Amiodarone HCl) 200 Mg Tablet, 200 MG PO BID, TAB 09/04/24 Buspirone HCl (Buspirone HCl) 10 Mg Tablet, 10 MG PO BID, TAB 09/04/24 Eplerenone (Eplerenone) 25 Mg Tablet, 25 MG PO DAILY, TAB 09/04/24 Aspirin (ASPIRIN 81MG CHEW TAB) 81 Mg Tab.chew, 81 MG PO DAILY, TAB.CHEW 09/04/24 Furosemide (Furosemide) 20 Mg Tablet, 20 MG PO DAILY, TAB 09/04/24 Amlodipine Besylate (Amlodipine Besylate) 10 Mg Tablet, 10 MG PO DAILY for 30 Days, #30 TAB 0 Refills 09/04/24 Clopidogrel Bisulfate (Clopidogrel) 75 Mg Tablet, 75 MG PO DAILY, TAB 09/04/24 Metoprolol Succinate (Metoprolol Succinate) 50 Mg Tab.er.24h, 50 MG PO DAILY, TAB 09/04/24 Time spent arranging discharge: 31-60 minutes ISRAEL DUNNE IV, MD Apr 23, 2025 14:39
[2025-04-23 16:26] VITALS: BP 108/59; PULSE 50; RESP 18; TEMP 98.2
--- NOTE | 2025-04-23 16:45 | NUR ---
Pt with DC home orders no PT rendered
== END 2025-04-23 17:05 | disposition home or self-care (01) | DRG 194 ==
LOC: EDH 08:20 → EDHIP 08:21 → 2DH 15:20
PROVIDERS: ADMIT Internal Medicine; ATTEND Internal Medicine
DX: I13.0 Hypertensive heart and chronic kidney disease with heart failure and stage 1 through stage 4 chronic kidney disease, or unspecified chronic kidney disease (principal); E11.22 Type 2 diabetes mellitus with diabetic chronic kidney disease; I69.351 Hemiplegia and hemiparesis following cerebral infarction affecting right dominant side; G47.33 Obstructive sleep apnea (adult) (pediatric); I87.2 Venous insufficiency (chronic) (peripheral); I50.33 Acute on chronic diastolic (congestive) heart failure; E66.9 Obesity, unspecified; E78.00 Pure hypercholesterolemia, unspecified; N18.30 Chronic kidney disease, stage 3 unspecified; I25.10 Atherosclerotic heart disease of native coronary artery without angina pectoris; I25.2 Old myocardial infarction; I69.354 Hemiplegia and hemiparesis following cerebral infarction affecting left non-dominant side; Z79.899 Other long term (current) drug therapy; Z82.49 Family history of ischemic heart disease and other diseases of the circulatory system; Z95.810 Presence of automatic (implantable) cardiac defibrillator; Z99.3 Dependence on wheelchair; Z68.43 Body mass index [BMI] 50.0-59.9, adult
CPT/HCPCS: 36415; 71045; 80048; 80076; 82550; 82948; 83735; 83880; 84484; 85025; 85610; 85730; 93005; 93308; 93970; 94664; 96374; 96375; 99285; G0378; J0360; J1650; J1938

== ENCOUNTER 2025-06-14 00:11 | Emergency (ER) | payer MEDICAID ==
[~2025-06-14] VITALS: Ht 188 cm; Wt 149.7 kg
[~2025-06-14 00:11] MED LIST changes: +HYDR-3420 PO; -HYDR25TA67 PO
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
--- NOTE | 2025-06-14 00:38 | EKG ---
[facility] Test Date: 2025-06-14 Test Time: 00:30:10 Pat Name: RAFAEL AYALA Department: ED Room: Gender: M Internal Auditor: [id number] : 1965 Requested By: GONSALO HASSAN Order Number: [id number] Reading MD: Mario Tanner Measurements Intervals [place] Rate: 65 P: 67 AK: 189 QRS: 12 QRSD: 100 T: 105 QT: 385 QTc: 402 Interpretive Statements Sinus rhythm Borderline T abnormalities, diffuse leads Compared to ECG 04/22/2025 08:27:39 T-wave abnormality now present Electronically Signed On 06-14-2025 12:13:45 VISION SPECIALIST by Mario Tanner Please click the below link to view image of tracing.
[2025-06-14 00:47] LABS: IMMATURE GRANULOCYTE ABSOLUTE 0.02 K/uL (0-1); NUCLEATED RED BLOOD CELLS 0.0 % (0.0-0.19); PLATELET COUNT (AUTO) 206 K/uL (130-400); RED BLOOD CELL COUNT(AUTO) 4.53 MIL/uL (4.50-6.20); RED CELL DISTRIBUTION WIDTH 13.9 % (11.0-15.5); WHITE BLOOD COUNT (AUTO) 7.8 K/uL (4.8-10.8)
[2025-06-14 01:01] LABS: CREATININE 1.9 mg/dL (0.5-1.3); GLOMERULAR FILTR. RATE CALC 39.0 mL/min (>90); GLUCOSE,RANDOM 96.0 mg/dL (70-105); SODIUM SERUM 135.0 mmol/L (136-145); UREA NITROGEN, BLOOD 21.0 mg/dL (7-18)
[2025-06-14 01:09] LABS: CREATINE KINASE, TOTAL 385.0 U/L (21-232)
--- NOTE | 2025-06-14 01:50 | HMCIMG ---
EXAM: CR Chest, 1 View. CLINICAL HISTORY: dizziness and hypertension, CAD COMPARISON: Compared with the previous X-ray FINDINGS: LUNGS: There is no mass, infiltrate, or acute pulmonary abnormality. PLEURAL SPACES: No pleural effusion or pneumothorax. MEDIASTINUM: The cardiomediastinal silhouette is within normal limits. BONES: No acute osseous abnormality. Mild degenerative changes along the right gleno-humeral joint IMPRESSION: Left cardiac pacemaker present, well placed cardiac leads superimposed over atrium and ventricle. No acute cardiopulmonary pathology is evident. Mild degenerative changes around the right gleno-humeral joint. No interval changes. /[place]
[2025-06-14 02:31] LABS: APPEARANCE,URINE CLEAR (CLEAR); GLUCOSE, URINE (UA) NEGATIVE (NEGATIVE); LEUKOCYTE ESTERASE ,URINE NEGATIVE Leu/uL (NEGATIVE); NITRATE,URINE NEGATIVE (NEGATIVE); OCCULT BLOOD,URINE NEGATIVE (NEGATIVE)
[2025-06-14 02:32] LABS: ADD UA MICROSCOPIC NO
[2025-06-14 03:20] VITALS: BP 136/64; PULSE 68; RESP 20; TEMP 98.3; O2SAT 99
== END 2025-06-14 03:29 | disposition home or self-care (01) ==
LOC: EDH 00:11
DX: I13.10 Hypertensive heart and chronic kidney disease without heart failure, with stage 1 through stage 4 chronic kidney disease, or unspecified chronic kidney disease (principal); E11.22 Type 2 diabetes mellitus with diabetic chronic kidney disease; N18.9 Chronic kidney disease, unspecified; E66.01 Morbid (severe) obesity due to excess calories; G47.33 Obstructive sleep apnea (adult) (pediatric); E78.00 Pure hypercholesterolemia, unspecified; I25.10 Atherosclerotic heart disease of native coronary artery without angina pectoris; Z79.02 Long term (current) use of antithrombotics/antiplatelets; Z79.82 Long term (current) use of aspirin; Z79.899 Other long term (current) drug therapy; Z88.6 Allergy status to analgesic agent; Z95.810 Presence of automatic (implantable) cardiac defibrillator
CPT/HCPCS: 36415; 71045; 80048; 81003; 82010; 82550; 83880; 84484; 85025; 93005; 99285